=== PATIENT | female | born 1940 | race Caucasian/White ===

== ENCOUNTER 2017-02-06 13:28 | Emergency (ER) | payer OTHER, MEDICARE ==
--- NOTE | 2017-02-06 13:40 | PDOC ---
History of Present Illness - General Chief Complaint: Injury Stated Complaint: LEFT WRIST INJURY Time Seen by Provider: 02/06/17 13:36 - History of Present Illness Initial Comments: 02/06/17 14:41 Chief complaint: Wrist injury History of present illness: Patient tripped and fell last night, injuring her left wrist. There is persistent pain and swelling. There were no other significant injuries. Review of systems: Denies pain or injury to the head neck chest abdomen spine and pelvis or other extremities. Denies chest pain, shortness of breath, abdominal pain, nausea, vomiting, diarrhea, visual or focal neurologic symptoms , unsteadiness of gait Past medical history: High blood pressure, elevated cholesterol, anxiety, depression. Medications: Atenolol, nifedipine, hydrochlorothiazide, pravastatin, potassium, Paxil, Xanax, and baby aspirin. Social history: Tobacco and alcohol use, denies substance abuse problem, no nonprescription drugs. Active and without significant disability Family history: Reviewed and noncontributory Physical exam: Alert and oriented well-developed well-nourished mild distress due to wrist pain. Cooperative Afebrile, vital signs stable Head atraumatic. PERRLA, ENT clear Neck supple without bruit mass or nodes No cervical spine tenderness or deformity Chest clear. No rib cage or chest wall tenderness or deformity CV S1 and S2 normal without murmur rub or gallop pulses full and symmetric no JVD or edema Abdomen benign Neurological C2 to 12 intact. Strength full and symmetric. No focal sensory or motor deficits. Gait stable and unimpaired Extremities: Diffuse swelling of the left wrist, tenderness over the distal radius. No appreciable deformity. Pulses full. No distal sensory or motor deficits. No injury noted to the forearm elbow and upper arm or shoulder. X-ray: There is an avulsion fracture evident only on the lateral view, the origins of the avulsion are not clear about most likely the dorsal and volar aspects of the distal radius. The joint space appears preserved but there may be joint involvement, there is no dislocation, and the navicular shows no obvious fracture Impression: Fractured wrist, no displacement, possible joint involvement. Plan: A volar splint was applied, after which the patient was more comfortable. The arm was placed in a sling. Distal pulses were maintain, capillary refill is intact, and there was no distal numbness or tingling after splint application. The patient and her daughter were instructed to see an orthopedic radiologic technologist for further treatment within the next 3-5 days. They agreed. The patient was discharged after receiving pain medication, much more comfortable, with the medication and the splint adding to her comfort. She will follow up as directed. Past History - Past Medical History Allergies/Adverse Reactions: Allergies Allergy/AdvReac Type Severity Reaction Status Date / Time No Known Allergies Allergy Verified 02/06/17 13:30 Home Medications: Ambulatory Orders Alprazolam [Xanax] 0.25 mg PO QID PRN 02/20/13 Aspirin [ASA -] 81 mg PO DAILY 02/20/13 Atenolol [Tenormin -] 50 mg PO BID 02/20/13 Nifedipine [Nifedipine ER] 30 mg PO DAILY 02/20/13 Omeprazole [Prilosec (RX)] 20 mg PO BID 02/20/13 Pravastatin Sodium [Pravachol -] 40 mg PO HS 02/20/13 Hydrochlorothiazide [Hctz -] 12.5 mg PO DAILY 09/21/13 Cholecalciferol (Vitamin D3) [Vitamin D3] 5,000 unit PO DAILY 02/06/17 Oxycodone HCl/Acetaminophen [Percocet 5-325 mg Tablet] 1 - 2 tab PO Q6H PRN #20 tab MDD 6 02/06/17 Paroxetine HCl [Paxil] 40 mg PO DAILY 02/06/17 Potassium Chloride [Klor-Con 8] 8 meq PO DAILY 02/06/17 Anemia: No Asthma: No Cancer: No Cardiac Disorders: No CVA: No COPD: No CHF: No Dementia: No Diabetes: No GI Disorders: Yes (UPPER ENDO.REVEALED GLOTTIS NOT "CLOSING"-GOES TO SPEECH THERAPY) Disorders: No HTN: Yes Hypercholesterolemia: Yes Liver Disease: No Seizures: No Thyroid Disease: No - Surgical History Abdominal Surgery: Yes (DUODENAL ULCER RESECTION MANY YEARS AGO) Appendectomy: No Cardiac Surgery: No Cholecystectomy: No Lung Surgery: Yes (RML LOBECTOMY FOR BLEEDING) Neurologic Surgery: No Orthopedic Surgery: Yes (RIGHT KNEE ARTHROSCOPY 2011) - Psycho/Social/Smoking Cessation Hx Smoking History: Former smoker Have you smoked in the past 12 months: No If you are a former smoker, when did you quit?: 20 YRS AGO Hx Alcohol Use: No Drug/Substance Use Hx: No Substance Use Type: None Hx Substance Use Treatment: No Medical Decision Making - Medical Decision Making 02/06/17 14:49 X-ray was reviewed: Avulsion fracture, most probably of the distal radius, is present. See description and prior note Volar splint was applied. See description of procedure in prior note. *DC/Admit/Observation/Transfer Diagnosis at time of Disposition: Wrist fracture Qualifiers: Encounter type: initial encounter Fracture type: closed Laterality: left Qualified Code(s): S62.102A - Fracture of unspecified carpal bone, left wrist, initial encounter for closed fracture - Discharge Dispostion Disposition: HOME Condition at time of disposition: Improved Admit: No - Prescriptions Prescriptions: Oxycodone HCl/Acetaminophen [Percocet 5-325 mg Tablet] 1 - 2 tab PO Q6H PRN #20 tab MDD 6 PRN Reason: Pain - Referrals Referrals: Jayme Ramirez MD [Staff Physician] - 3 days - Patient Instructions Printed Discharge Instructions: DI for Wrist Fracture Additional Instructions: Rest, ice, and elevate. He will need to see an orthopedic radiologic technologist for further treatment within the next week.
[2017-02-06 13:59] VITALS: BP 153/77; PULSE 62; TEMP 98.6; BMI 22.3
[2017-02-06] MEDS ORDERED: KETOROLAC TROMETHAMINE 60 MG/2 ML VIAL IM ONE (14:36)
[2017-02-06] MEDS ORDERED: KETOROLAC TROMETHAMINE 30 MG/1 ML VIAL ONE (14:38)
== END 2017-02-06 14:59 | disposition home or self-care (01) ==
LOC: FER 13:28
PROC: 2W3FX1Z Immobilization of Left Hand using Splint (ICD-10-PCS; principal; 2017-02-06)
DX: S62.102A Fracture of unspecified carpal bone, left wrist, initial encounter for closed fracture (principal); W18.39XA Other fall on same level, initial encounter; Y93.89 Activity, other specified; Y92.9 Unspecified place or not applicable
CPT/HCPCS: 73110-TC-LT; 99282-25

== ENCOUNTER 2017-07-27 16:44 | Inpatient (IN) | payer OTHER, MEDICARE ==
--- NOTE | 2017-07-27 17:29 | PDOC ---
History of Present Illness - History of Present Illness Initial Comments: 07/27/17 17:56 "The patient is a 76-year-old female, with a significant past medical history of HTN, hyperlipidemia, anxiety, and depression, who presents to the ED with 5 days of coughing up blood. She states that she has had a chronic cough for several months. However, 5 days ago she began to notice blood in her sputum. This progressively worsened to the point where she feels like she is coughing up blood clots. The patient denies any fever, chills, nausea, or vomiting. She denies any chest pain or shortness of breath. Denies leg swelling. Takes a baby aspirin daily but no other anticoagulation. Pt states that she had a similar presentation about 10 years ago and had to have part of her lung removed. She denies any history of lung cancer but is unable to recall exactly what her diagnosis was. <Luciano Power - Last Filed: 07/27/17 19:08> <Nino Ramirez - Last Filed: 07/27/17 20:55> - General Chief Complaint: Hemoptysis Stated Complaint: COUGH WITH BLOOD STREAKS Time Seen by Provider: 07/27/17 16:49 Past History - Past Medical History Anemia: No Asthma: No Cancer: No Cardiac Disorders: No CVA: No COPD: No CHF: No Dementia: No Diabetes: No GI Disorders: Yes (UPPER ENDO.REVEALED GLOTTIS NOT "CLOSING"-GOES TO SPEECH THERAPY) Disorders: No HTN: Yes Hypercholesterolemia: Yes Liver Disease: No Seizures: No Thyroid Disease: No - Surgical History Abdominal Surgery: Yes (DUODENAL ULCER RESECTION MANY YEARS AGO) Appendectomy: No Cardiac Surgery: No Cholecystectomy: No Lung Surgery: Yes (RML LOBECTOMY FOR BLEEDING) Neurologic Surgery: No Orthopedic Surgery: Yes (RIGHT KNEE ARTHROSCOPY 2012) - Suicide/Smoking/Psychosocial Hx Smoking History: Former smoker Have you smoked in the past 12 months: No If you are a former smoker, when did you quit?: 20 YRS AGO Information on smoking cessation initiated: No Hx Alcohol Use: No Drug/Substance Use Hx: No Substance Use Type: None Hx Substance Use Treatment: No <Luciano Power - Last Filed: 07/27/17 19:08> <Nino Ramirez - Last Filed: 07/27/17 20:55> - Past Medical History Allergies/Adverse Reactions: Allergies Allergy/AdvReac Type Severity Reaction Status Date / Time No Known Allergies Allergy Verified 07/27/17 16:46 Home Medications: Ambulatory Orders Alprazolam [Xanax] 0.25 mg PO QID PRN 02/20/13 Aspirin [ASA -] 81 mg PO DAILY 02/20/13 Nifedipine [Nifedipine ER] 30 mg PO HS 02/20/13 Omeprazole [Prilosec (RX)] 20 mg PO BID 02/20/13 Pravastatin Sodium [Pravachol -] 40 mg PO HS 02/20/13 Hydrochlorothiazide [Hctz -] 12.5 mg PO DAILY 09/21/13 Cholecalciferol (Vitamin D3) [Vitamin D3] 5,000 unit PO DAILY 02/06/17 Paroxetine HCl [Paxil] 40 mg PO DAILY 02/06/17 Potassium Chloride [Klor-Con 8] 8 meq PO DAILY 02/06/17 Atenolol [Tenormin] 100 mg PO DAILY 07/27/17 Review of Systems - Review of Systems Comments:: 07/27/17 17:58 "GENERAL/CONSTITUTIONAL: No fever or chills. No weakness. HEAD, EYES, EARS, NOSE AND THROAT: No change in vision. No ear pain or discharge. No sore throat. CARDIOVASCULAR: No chest pain or shortness of breath. RESPIRATORY: (+)Hemoptysis. No wheezing. GASTROINTESTINAL: No nausea, vomiting, diarrhea or constipation. GENITOURINARY: No dysuria, frequency, or change in urination. MUSCULOSKELETAL: No joint or muscle swelling or pain. No neck or back pain. SKIN: No rash NEUROLOGIC: No headache, vertigo, loss of consciousness, or change in strength/ sensation. ENDOCRINE: No increased thirst. No abnormal weight change. HEMATOLOGIC/LYMPHATIC: No anemia, easy bleeding, or history of blood clots. ALLERGIC/IMMUNOLOGIC: No hives or skin allergy. " <Luciano Power - Last Filed: 07/27/17 19:08> *Physical Exam - Vital Signs Last Vital Signs Temp Pulse Resp BP Pulse Ox 98.1 F 80 16 136/75 95 07/27/17 16:45 07/27/17 16:45 07/27/17 16:45 07/27/17 16:45 07/27/17 16:45 - Physical Exam Comments: 07/27/17 17:58 "GENERAL: Awake, alert, and fully oriented, in no acute distress HEAD: No signs of trauma EYES: PERRLA, EOMI, sclera anicteric, conjunctiva clear ENT: Auricles normal inspection, hearing grossly normal, nares patent, oropharynx clear without exudates. Moist mucosa NECK: Nontender, no stepoffs, Normal ROM, supple, no lymphadenopathy, JVD, or masses LUNGS: bibasilar rales, R>L, no wheezing, no rhonchi HEART: Regular rate and rhythm, normal S1 and S2, no murmurs, rubs or gallops ABDOMEN: Soft, nontender, normoactive bowel sounds. No guarding, no rebound. No masses EXTREMITIES: Normal range of motion, no edema. No clubbing or cyanosis. No cords, erythema, or tenderness NEUROLOGICAL: Cranial nerves II through XII intact. 5/5 strength and sensation in all extremities, Normal speech, normal gait SKIN: Warm, Dry, normal turgor, no rashes or lesions noted. " <Luciano Power - Last Filed: 07/27/17 19:08> - Vital Signs Last Vital Signs Temp Pulse Resp BP Pulse Ox 98.1 F 66 20 120/76 92 L 07/27/17 16:45 07/27/17 20:51 07/27/17 20:51 07/27/17 20:51 07/27/17 20:51 <Nino Ramirez - Last Filed: 07/27/17 20:55> ED Treatment Course - LABORATORY CBC & Chemistry Diagram: 07/27/17 17:50 07/27/17 17:50 - RADIOLOGY Radiology Studies Ordered: Category Date Time Status CHEST PA & LAT [RAD] Stat Radiology 07/27/17 17:15 Ordered <Carmela Poweran - Last Filed: 07/27/17 19:08> - LABORATORY CBC & Chemistry Diagram: 07/27/17 17:50 07/27/17 17:50 - ADDITIONAL ORDERS Additional order review: Laboratory Results 07/27/17 07/27/17 07/27/17 17:50 17:50 17:50 PT with INR Cancelled INR Cancelled PTT (Actin FS) Sodium 134 L Potassium 3.4 L Chloride 95 L Carbon Dioxide 28 Anion Gap 11 BUN 13 D Creatinine 0.9 Creat Clearance w eGFR > 60 Random Glucose 124 H Calcium 11.0 H Total Bilirubin 0.7 D AST 23 ALT 14 D Alkaline Phosphatase 95 H D Creatine Kinase 44 Troponin I < 0.03 L B-Natriuretic Peptide Total Protein 7.5 Albumin 4.1 07/27/17 07/27/17 17:50 17:50 PT with INR 11.0 INR 0.98 PTT (Actin FS) 24.4 L Sodium Potassium Chloride Carbon Dioxide Anion Gap BUN Creatinine Creat Clearance w eGFR Random Glucose Calcium Total Bilirubin AST ALT Alkaline Phosphatase Creatine Kinase Troponin I B-Natriuretic Peptide 229.12 Total Protein Albumin 07/27/17 17:50 RBC 4.89 MCV 86.8 MCHC 31.8 L RDW 13.1 MPV 8.9 Neutrophils % 69.3 Lymphocytes % 21.5 Monocytes % 7.7 Eosinophils % 0.5 Basophils % 1.0 - Medications Given in the ED: ED Medications Discontinued Medications Generic Name Dose Route Start Last Admin Trade Name Freq PRN Reason Stop Dose Admin Azithromycin 500 mg/ Dextrose 250 mls @ 250 mls/hr 07/27/17 18:55 07/27/17 20 :00 IVPB 07/27/17 19:54 250 mls/hr ONCE ONE Administration Ceftriaxone Sodium 1 gm/ 50 mls @ 100 mls/hr 07/27/17 18:55 07/27/17 19:20 Dextrose IVPB 07/27/17 19:24 100 mls/hr ONCE ONE Administration <Nino Ramirez - Last Filed: 07/27/17 20:55> Medical Decision Making - Medical Decision Making 07/27/17 17:34 76 F with hemoptysis x 5 days. Possibly 2/2 airway irritation from chronic cough. Also consider PNA vs malignancy. Pt HD stable at this time. Lung exam notable for bilateral rales at bases R>L, possibly suggestive of CHF. Pt reportedly has h/o prior lobectomy 2/2 hemoptysis, though she cannot recall her diagnosis. - Labs, coags, T&S - CXR 07/27/17 19:00 CBC,CMP WBC 7.6 K/mm3 (4.0-10.8) 07/27/17 17:50 RBC 4.89 M/mm3 (3.60-5.2) 07/27/17 17:50 Hgb 13.5 GM/dl (10.7-15.3) 07/27/17 17:50 Hct 42.4 % (32.4-45.2) 07/27/17 17:50 MCV 86.8 fl (80-96) 07/27/17 17:50 MCH 27.6 pg (25.7-33.7) 07/27/17 17:50 MCHC 31.8 g/dl (32.0-36.0) L 07/27/17 17:50 RDW 13.1 % (11.6-15.6) 07/27/17 17:50 Plt Count 312 K/MM3 (134-434) 07/27/17 17:50 MPV 8.9 fl (7.5-11.1) 07/27/17 17:50 Neutrophils % 69.3 % (42.8-82.8) 07/27/17 17:50 Lymphocytes % 21.5 % (8-40) 07/27/17 17:50 Monocytes % 7.7 % (3.8-10.2) 07/27/17 17:50 Eosinophils % 0.5 % (0-4.5) 07/27/17 17:50 Basophils % 1.0 % (0-2.0) 07/27/17 17:50 Sodium 134 mmol/L (136-145) L 07/27/17 17:50 Potassium 3.4 mmol/L (3.5-5.1) L 07/27/17 17:50 Chloride 95 mmol/L (98-107) L 07/27/17 17:50 Carbon Dioxide 28 mmol/L (22-28) 07/27/17 17:50 Anion Gap 11 (8-16) 07/27/17 17:50 BUN 13 mg/dl (7-18) D 07/27/17 17:50 Creatinine 0.9 mg/dl (0.6-1.3) 07/27/17 17:50 Creat Clearance w eGFR > 60 (>60) 07/27/17 17:50 Random Glucose 124 mg/dl (74-106) H 07/27/17 17:50 Calcium 11.0 mg/dl (8.4-10.2) H 07/27/17 17:50 Total Bilirubin 0.7 mg/dl (0.2-1.0) D 07/27/17 17:50 AST 23 U/L (10-42) 07/27/17 17:50 ALT 14 U/L (10-40) D 07/27/17 17:50 Alkaline Phosphatase 95 U/L (32-92) H D 07/27/17 17:50 Creatine Kinase 44 IU/L (26-192) 07/27/17 17:50 Troponin I < 0.03 ng/ml (0.03-0.50) L 07/27/17 17:50 Total Protein 7.5 g/dl (6.4-8.3) 07/27/17 17:50 Albumin 4.1 g/dl (3.5-5.0) 07/27/17 17:50 CXR on my read with bibasilar opacities, ?mass in LLL. Will empirically tx for PNA at this time. Pt to be admitted to hospitalist. <Luciano Power - Last Filed: 07/27/17 19:08> *DC/Admit/Observation/Transfer <Luciano Power - Last Filed: 07/27/17 19:08> - Discharge Dispostion Admit: Yes <Nino Ramirez - Last Filed: 07/27/17 20:55> Diagnosis at time of Disposition: Hemoptysis - Discharge Dispostion Condition at time of disposition: Good - Referrals Referrals: Papito Rousseau MD [Primary Care Provider] - - Patient Instructions - Post Discharge Activity
[2017-07-27 18:15] LABS: EOS % 0.5 % (0-4.5); HEMATOCRIT 42.4 % (32.4-45.2); HEMOGLOBIN 13.5 GM/dl (10.7-15.3); LYMPH % 21.5 % (8-40); MCH 27.6 pg (25.7-33.7); MCHC 31.8 g/dl (32.0-36.0); MEAN CELL VOLUME 86.8 fl (80-96); MEAN PLT VOLUME 8.9 fl (7.5-11.1); MONO % 7.7 % (3.8-10.2); NEUT % 69.3 % (42.8-82.8); PLATELET COUNT 312 K/MM3 (134-434); RBC 4.89 M/mm3 (3.60-5.2); RDW 13.1 % (11.6-15.6); WHITE BLOOD COUNT 7.6 K/mm3 (4.0-10.8)
[2017-07-27 18:21] LABS: ALBUMIN 4.1 g/dl (3.5-5.0); ALK PHOS 95 U/L (32-92); ANION GAP 11 (8-16); BILIRUBIN,TOTAL 0.7 mg/dl (0.2-1.0); BLOOD UREA NITROGEN 13 mg/dl (7-18); CHLORIDE 95 mmol/L (98-107); CO2 28 mmol/L (22-28); CREATININE 0.9 mg/dl (0.6-1.3); GLUCOSE,RANDOM 124 mg/dl (74-106); POTASSIUM 3.4 mmol/L (3.5-5.1); SGOT/AST 23 U/L (10-42); SGPT/ALT 14 U/L (10-40); SODIUM 134 mmol/L (136-145); TOT PROT 7.5 g/dl (6.4-8.3)
[2017-07-27 18:26] LABS: ACTIVATED PTT 24.4 SECONDS (24.0-38.9)
[2017-07-27 18:30] LABS: INR 0.98 (0.82-1.09)
[2017-07-27] MEDS ORDERED: AZITHROMYCIN IVPB 500 MG in DEXTROSE 5%-WATER - 250 ML IVPB ONE (18:55)
[2017-07-27] MEDS ORDERED: CEFTRIAXONE 1 GM in DEXTROSE 5%-WATER - 50 ML IVPB ONE (18:55)
[2017-07-27] MEDS ORDERED: cefTRIAXone SODIUM 1 GM VIAL ONE (19:16)
[2017-07-27] MEDS ORDERED: AZITHROMYCIN 500 MG VIAL IVPB ONE (19:16)
[2017-07-27] MEDS ORDERED: POTASSIUM CHLORIDE TABS 20 MEQ TABLET.ER (FP) PO ONE ×2 (21:09→21:11)
[2017-07-27 22:12] VITALS: BMI 22.7
[2017-07-27] MEDS ORDERED: ALPRAZolam 0.25 MG TABLET PO PRN (23:45)
[2017-07-28 00:56] LABS: BASO % 0.5 % (0-2.0); EOS % 0.4 % (0-4.5); HEMATOCRIT 35.4 % (32.4-45.2); HEMOGLOBIN 11.7 GM/dL (10.7-15.3); LYMPH % 27.7 % (8-40); MCH 28.3 pg (25.7-33.7); MCHC 33.2 g/dl (32.0-36.0); MEAN CELL VOLUME 85.4 fl (80-96); MEAN PLT VOLUME 8.5 fl (7.5-11.1); MONO % 9.7 % (3.8-10.2); NEUT % 61.7 % (42.8-82.8); PLATELET COUNT 258 K/MM3 (134-434); RBC 4.14 M/mm3 (3.60-5.2); RDW 13.4 % (11.6-15.6)
--- NOTE | 2017-07-28 09:10 | HP ---
CHIEF COMPLAINT: Coughing up blood x 5 days PCP: Dr. Papito Rousseau HISTORY OF PRESENT ILLNESS: 76 year-old female with a PMH significant for HTN, HLD, CAD, chronic bronchiectasis s/p right middle lung lobectomy (1998), hypercalcemia, a recently diagnosed right upper pole parathyroid adenoma, anxiety and depression. Patient presented to the ED complaining of julio hemoptysis x 5 days. Patient states the last time she had hemoptysis was many years ago. Spoke with patient's PCP Dr. Rousseau who states patient had chronic hemoptysis years ago secondary to bronchiectasis which led to the lobectomy. She has never had a diagnosis of cancer. Patient was a heavy smoker, quit 30 years ago. Patient denies pain. Denies fever, sweats, chills, night sweats. Denies recent weight loss. According to Dr. Rousseau patient weighed 132lbs two weeks ago. Today she is 128lbs. No recent sick exposures. Last travel was last summer to [place]. She takes a daily ASA, on no other anticoagulation. ER course was notable for: (1) K 3.2 (2) julio hemoptysis Recent Travel: No PAST MEDICAL HISTORY: Hypertension Hyperlipidemia Coronary artery disease Chronic bronchiectasis Primary hyperparathyoidism/parathyroid adenoma Anxiety/Depression PAST SURGICAL HISTORY: Billroth II (1968) GAURAV/BSO (1978) Right middle lung lobectomy (1998) Right foot calcaneal spur (2003) Right knee arthroscopy (2011) Cataracts (2012) Right ankle arthroscopy (2013) Left shoulder arthroscopy (2014) Social History: Smoking: former, quit 30 years ago Alcohol: no Drugs: no Family History: father 46 heart disease; mother 69 diabetes and heart disease; sister alive with breast cancer Allergies No Known Allergies Allergy (Verified 07/27/17 16:46) HOME MEDICATIONS: Medication Instructions Recorded Alprazolam [Xanax] 0.25 mg PO QID PRN 02/20/13 Aspirin [ASA -] 81 mg PO DAILY 02/20/13 Nifedipine [Nifedipine ER] 30 mg PO HS 02/20/13 Omeprazole [Prilosec (RX)] 20 mg PO BID 02/20/13 Pravastatin Sodium [Pravachol -] 40 mg PO HS 02/20/13 Hydrochlorothiazide [Hctz -] 12.5 mg PO DAILY 09/21/13 Cholecalciferol (Vitamin D3) 5,000 unit PO DAILY 02/06/17 [Vitamin D3] Paroxetine HCl [Paxil] 40 mg PO DAILY 02/06/17 Potassium Chloride [Klor-Con 8] 8 meq PO DAILY 02/06/17 Atenolol [Tenormin] 100 mg PO DAILY 07/27/17 REVIEW OF SYSTEMS CONSTITUTIONAL: Absent: fever, chills, diaphoresis, generalized weakness, malaise, loss of appetite, weight change HEENT: Absent: rhinorrhea, nasal congestion, throat pain, throat swelling, difficulty swallowing, mouth swelling, ear pain, eye pain, visual changes CARDIOVASCULAR: Absent: chest pain, syncope, palpitations, irregular heart rate, lightheadedness , peripheral edema RESPIRATORY: +cough +hemoptysis Absent: cough, shortness of breath, dyspnea with exertion, orthopnea, wheezing, stridor GASTROINTESTINAL: Absent: abdominal pain, abdominal distension, nausea, vomiting, diarrhea, constipation, melena, hematochezia GENITOURINARY: Absent: dysuria, frequency, urgency, hesitancy, hematuria, flank pain, genital pain MUSCULOSKELETAL: Absent: myalgia, arthralgia, joint swelling, back pain, neck pain SKIN: Absent: rash, itching, pallor HEMATOLOGIC/IMMUNOLOGIC: Absent: easy bleeding, easy bruising, lymphadenopathy, frequent infections ENDOCRINE: Absent: unexplained weight gain, unexplained weight loss, heat intolerance, cold intolerance NEUROLOGIC: Absent: headache, focal weakness or paresthesias, dizziness, unsteady gait, seizure, mental status changes, bladder or bowel incontinence PSYCHIATRIC: Absent: anxiety, depression, suicidal or homicidal ideation, hallucinations. PHYSICAL EXAMINATION Vital Signs - 24 hr 07/27/17 07/27/17 07/27/17 16:45 20:51 21:18 Temperature 98.1 F 97.5 F L 98.2 F Pulse Rate 80 82 Pulse Rate [ 66 Left Radial] Respiratory 16 20 20 Rate Blood Pressure 136/75 134/61 Blood Pressure 120/76 [Left Arm] O2 Sat by Pulse 95 92 L 94 L Oximetry (%) 07/27/17 07/27/17 07/28/17 22:15 23:47 03:47 Temperature 97.6 F 97.4 F L Pulse Rate 66 60 Pulse Rate [ Left Radial] Respiratory 18 18 19 Rate Blood Pressure 134/61 137/65 Blood Pressure [Left Arm] O2 Sat by Pulse 94 L 94 L Oximetry (%) 07/28/17 07:37 Temperature Pulse Rate Pulse Rate [ Left Radial] Respiratory Rate Blood Pressure Blood Pressure [Left Arm] O2 Sat by Pulse 95 Oximetry (%) GENERAL: Awake, alert, and fully oriented, in no acute distress. HEAD: Normal with no signs of trauma. EYES: Pupils equal, round and reactive to light, extraocular movements intact, sclera anicteric, conjunctiva clear. No lid lag. EARS, NOSE, THROAT: Ears normal, nares patent, oropharynx clear without exudates. Moist mucous membranes. NECK: Normal range of motion, supple without lymphadenopathy, JVD, or masses. LUNGS: Breath sounds equal, clear to auscultation bilaterally. No wheezes, and no crackles. No accessory muscle use. HEART: Regular rate and rhythm, normal S1 and S2 without murmur, rub or gallop. ABDOMEN: Soft, nontender, not distended, normoactive bowel sounds, no guarding, no rebound, no masses. No hepatomegaly or splenomegaly. MUSCULOSKELETAL: Normal range of motion at all joints. No bony deformities or tenderness. No CVA tenderness. UPPER EXTREMITIES: 2+ pulses, warm, well-perfused. No cyanosis. No clubbing. No peripheral edema. LOWER EXTREMITIES: 2+ pulses, warm, well-perfused. No calf tenderness. No peripheral edema. NEUROLOGICAL: Cranial nerves II-XII intact. Normal speech. Normal gait. PSYCHIATRIC: Cooperative. Good eye contact. Appropriate mood and affect. SKIN: Warm, dry, normal turgor, no rashes or lesions noted, normal capillary refill. Laboratory Results - last 24 hr 07/27/17 07/27/17 07/27/17 17:50 17:50 17:50 WBC RBC Hgb Hct MCV MCH MCHC RDW Plt Count MPV Neutrophils % Lymphocytes % Monocytes % Eosinophils % Basophils % PT with INR 11.0 INR 0.98 PTT (Actin FS) 24.4 L Sodium Potassium Chloride Carbon Dioxide Anion Gap BUN Creatinine Creat Clearance w eGFR Random Glucose Calcium Total Bilirubin AST ALT Alkaline Phosphatase Creatine Kinase Troponin I B-Natriuretic Peptide 229.12 Total Protein Albumin Blood Type O NEGATIVE Antibody Screen Negative 07/27/17 07/27/17 07/27/17 17:50 17:50 17:50 WBC 7.6 RBC 4.89 Hgb 13.5 Hct 42.4 MCV 86.8 MCH 27.6 MCHC 31.8 L RDW 13.1 Plt Count 312 MPV 8.9 Neutrophils % 69.3 Lymphocytes % 21.5 Monocytes % 7.7 Eosinophils % 0.5 Basophils % 1.0 PT with INR Cancelled INR Cancelled PTT (Actin FS) Sodium 134 L Potassium 3.4 L Chloride 95 L Carbon Dioxide 28 Anion Gap 11 BUN 13 D Creatinine 0.9 Creat Clearance w eGFR > 60 Random Glucose 124 H Calcium 11.0 H Total Bilirubin 0.7 D AST 23 ALT 14 D Alkaline Phosphatase 95 H D Creatine Kinase 44 Troponin I B-Natriuretic Peptide Total Protein 7.5 Albumin 4.1 Blood Type Antibody Screen 07/27/17 07/27/17 17:50 23:50 WBC 9.0 RBC 4.14 Hgb 11.7 Hct 35.4 MCV 85.4 MCH 28.3 MCHC 33.2 RDW 13.4 Plt Count 258 MPV 8.5 Neutrophils % 61.7 Lymphocytes % 27.7 Monocytes % 9.7 Eosinophils % 0.4 Basophils % 0.5 PT with INR INR PTT (Actin FS) Sodium Potassium Chloride Carbon Dioxide Anion Gap BUN Creatinine Creat Clearance w eGFR Random Glucose Calcium Total Bilirubin AST ALT Alkaline Phosphatase Creatine Kinase Troponin I < 0.03 L B-Natriuretic Peptide Total Protein Albumin Blood Type Antibody Screen Imagning 07/27/17 CXR: new left lower lung tumor density; post-surgical changes right apex 07/27/17 CT chest: chronic lung changes with evidence of prior granulomatosis disease unchanged since 2012; new groundglass opacification RUL ASSESSMENT/PLAN 76 year-old female with a PMH significant for HTN, HLD, CAD, chronic bronchiectasis s/p right middle lung lobectomy (1998), hypercalcemia, a recently diagnosed right upper pole parathyroid ademona, anxiety and depression. Patient placed on observation for julio hemoptysis x 5 days. RUL opacification Bronchiectasis, chronic, extensive --no fever, no leukocytosis --per pulm, continue empiric azithro and ceftriaxone --duonebs --hold ASA --will need bronchoscopy, inpatient v. outpatient Hypertension --continue atenolol, nifedipine, HCTZ Hyperlipidemia --continue Lipitor Coronary artery disease --continue atenolol Hypercalcemia Parathyroid adenoma --being followed by Dr. Hall at [place]; has appt with surgeon in mid- August Anxiety/Depression --continue Paxil Hypokalemia --repleted FEN Fluids: PO intake adequate Electrolytes: replete as indicated Nutrition: low sodium DVT prophylaxis: mechanical prophylaxis only; SCDs, oob, ambulation Dispo: continues to require observation. Visit type - Emergency Visit Emergency Visit: Yes ED Registration Date: 07/27/17 Care time: The patient presented to the Emergency Department on the above date and was hospitalized for further evaluation of their emergent condition. - New Patient This patient is new to me today: Yes Date on this admission: 07/28/17 - Critical Care Critical Care patient: No
[2017-07-28 09:21] LABS: BASO % 0.7 % (0-2.0); HEMATOCRIT 34.8 % (32.4-45.2); HEMOGLOBIN 11.5 GM/dl (10.7-15.3); LYMPH % 29.9 % (8-40); MCH 28.6 pg (25.7-33.7); MCHC 32.9 g/dl (32.0-36.0); MONO % 9.8 % (3.8-10.2); NEUT % 58.6 % (42.8-82.8); PLATELET COUNT 236 K/MM3 (134-434); RDW 13.1 % (11.6-15.6); WHITE BLOOD COUNT 7.9 K/mm3 (4.0-10.8)
[2017-07-28] MEDS: PARoxetine HCL 20 MG TABLET (FP) PO SCH (10:01)
[2017-07-28] MEDS: NIFEdipine E.R. 30 MG TABLET (FP) PO SCH (10:02)
[2017-07-28] MEDS: HYDROCHLOROTHIAZIDE 12.5 MG CAPSULE (FP) PO SCH (10:02)
[2017-07-28] MEDS: ATENOLOL 50 MG TABLET (FP) PO SCH (10:02)
[2017-07-28 10:15] LABS: ALBUMIN 3.4 g/dl (3.5-5.0); ALK PHOS 79 U/L (32-92); ANION GAP 10 (8-16); BILIRUBIN,TOTAL 0.6 mg/dl (0.2-1.0); BLOOD UREA NITROGEN 10 mg/dl (7-18); CALCIUM 10.6 mg/dl (8.4-10.2); CHLORIDE 97 mmol/L (98-107); CO2 27 mmol/L (22-28); CREATININE 0.7 mg/dl (0.6-1.3); GLUCOSE,RANDOM 86 mg/dl (74-106); POTASSIUM 3.2 mmol/L (3.5-5.1); SGOT/AST 18 U/L (10-42); SGPT/ALT 12 U/L (10-40); SODIUM 134 mmol/L (136-145); TOT PROT 6.3 g/dl (6.4-8.3)
[2017-07-28] MEDS ORDERED: ALPRAZolam 0.25 MG TABLET PO PRN (11:20)
[2017-07-28] MEDS ORDERED: PATIENT'S OWN MEDICATION (NON-FORMULARY) (Omeprazole [Prilosec (Rx)] 20 MG) PO SCH (11:30)
[2017-07-28] MEDS ORDERED: HYDROCHLOROTHIAZIDE 12.5 MG CAPSULE (FP) PO SCH (11:30)
[2017-07-28] MEDS ORDERED: PATIENT'S OWN MEDICATION (NON-FORMULARY) (Atenolol [Tenormin] 100 MG) PO SCH (11:30)
[2017-07-28] MEDS ORDERED: PAROXETINE HCL 40 MG PO SCH (11:30)
[2017-07-28] MEDS: POTASSIUM CHLORIDE TABS 20 MEQ TABLET.ER (FP) PO SCH ×2 (12:32→17:42)
[2017-07-28] MEDS: PANTOPRAZOLE 40 MG TABLET (FP) PO SCH (12:32)
--- NOTE | 2017-07-28 15:28 | CON.PULM ---
Consult Consult Specialty:: PULMONARY Referred by:: SARAH Reason for Consultation:: HEMOPTYSIS - History of Present Illness Chief Complaint: COUGHING BLOOD WHICH WAS PRECEDED BY COUGHING GREEN SPUTUM AND NOT FEELING WELL FOR ONE WEEK History of Present Illness: "The patient is a 76-year-old female, with a significant past medical history of HTN, hyperlipidemia, anxiety, and depression, lung cancer resected 1999 no adjuvant therapy at that time, who presents to the ED with 5 days of coughing up blood. She states that she has had a chronic cough for several months. However, 5 days ago she began to notice blood in her sputum. This progressively worsened to the point where she feels like she is coughing up blood clots. The patient denies any fever, chills, nausea, or vomiting. She denies any chest pain or shortness of breath. Denies leg swelling. Takes a baby aspirin daily but no other anticoagulation.Pt states that she had a similar presentation about 10 years ago and had to have part of her lung removed. She denies any history of lung cancer but is unable to recall exactly what her diagnosis was. - History Source History Provided By: Patient, Family Member, Medical Record Limitations to Obtaining History: No Limitations - Past Medical History [employer]ER: No: Alzheimer's Cardio/Vascular: Yes: HTN, Hyperlipdemia. No: AFIB Pulmonary: Yes: COPD, Pneumonia, Other (lung cancer s/p resection). No: O2 Dependent Gastrointestinal: Yes: Peptic Ulcer Disease. No: Ascites Hepatobiliary: No: Cirrhosis Renal/: No: Renal Failure Reproductive: Yes: Postmenopausal ...: No Heme/Onc: Yes: Anemia Infectious Disease: No: AIDS Psych: No: Addictions Musculoskeletal: Yes: Osteoarthritis. No: Bursitis Rheumatology: No: Fibromyalgia Endocrine: No: Diabetes Mellitus - Past Surgical History Past Surgical History: Yes: Hysterectomy (duodenal ulcer with partial gastrectomy/right lobectomy/) - Alcohol/Substance Use Hx Alcohol Use: No - Smoking History Smoking history: Former smoker Have you smoked in the past 12 months: No Aproximately how many cigarettes per day: 4 If you are a former smoker, when did you quit?: 20 YRS AGO - Social History Usual Living Arrangement: Alone Place of : [facility] History of Recent Travel: No Home Medications - Allergies Allergies/Adverse Reactions: Allergies Allergy/AdvReac Type Severity Reaction Status Date / Time No Known Allergies Allergy Verified 07/27/17 16:46 - Home Medications Home Medications: Ambulatory Orders Alprazolam [Xanax] 0.25 mg PO QID PRN 02/20/13 Aspirin [ASA -] 81 mg PO DAILY 02/20/13 Nifedipine [Nifedipine ER] 30 mg PO HS 02/20/13 Omeprazole [Prilosec (RX)] 20 mg PO BID 02/20/13 Pravastatin Sodium [Pravachol -] 40 mg PO HS 02/20/13 Hydrochlorothiazide [Hctz -] 12.5 mg PO DAILY 09/21/13 Cholecalciferol (Vitamin D3) [Vitamin D3] 5,000 unit PO DAILY 02/06/17 Paroxetine HCl [Paxil] 40 mg PO DAILY 02/06/17 Potassium Chloride [Klor-Con 8] 8 meq PO DAILY 02/06/17 Atenolol [Tenormin] 100 mg PO DAILY 07/27/17 Family Disease History - Family Disease History Family History: Unremarkable Review of Systems - Review of Systems Constitutional: reports: Lethargy. denies: Fever Eyes: denies: Blurred Vision HENT: denies: Difficult Swallowing Neck: denies: Decreased ROM Cardiovascular: reports: Shortness of Breath. denies: Chest Pain, Palpitations Respiratory: reports: Cough, Exercise Intolerance, Hemoptysis, SOB, SOB on Exertion Gastrointestinal: denies: Abdominal Pain Genitourinary: denies: Burning Breasts: reports: No Symptoms Reported Physical Exam Vital Sings: Vital Signs Temperature 98.7 F 07/28/17 14:20 Pulse Rate 65 07/28/17 14:20 Respiratory Rate 19 07/28/17 14:20 Blood Pressure 126/60 07/28/17 14:20 O2 Sat by Pulse Oximetry (%) 93 L 07/28/17 14:20 Constitutional: Yes: Calm Eyes: Yes: EOM Intact HENT: Yes: Normocephalic Neck: Yes: Trachea Midline Cardiovascular: Yes: Regular Rate and Rhythm Respiratory: Yes: Rales (right middle/lower zone ) Gastrointestinal: Yes: Normal Bowel Sounds Edema: No Neurological: Yes: Alert Labs: CBC, BMP 07/28/17 08:27 07/28/17 07:56 rest reviewed Imaging - Results Chest X-ray: Report Reviewed, Image Reviewed Cat Scan: Report Reviewed, Image Reviewed Problem List - Problems (1) COPD (chronic obstructive pulmonary disease) Code(s): J44.9 - CHRONIC OBSTRUCTIVE PULMONARY DISEASE, UNSPECIFIED (2) Hemoptysis Code(s): R04.2 - HEMOPTYSIS (3) Bronchiectasis Code(s): J47.9 - BRONCHIECTASIS, UNCOMPLICATED (4) Lung cancer, middle lobe Code(s): C34.2 - MALIGNANT NEOPLASM OF MIDDLE LOBE, BRONCHUS OR LUNG Assessment/Plan Right mid zone new infiltrate/extensive bronchiectasis H/O lung ca 1998 right sided(details are unclear) IV ABS/BRONCHODILATORS/QUANTITATE HEMOPTYSIS CONTINUE HOME MEDS/HOLD ASA FOR NOW WOULD SUGGEST EVENTUAL FIBEROPTIC BRONCHOSCOPY TO EVALUATE ENDOBRONCHIAL ANATOMY DISCUSSED WITH GIBSON BASS MD
[2017-07-28] MEDS: CEFTRIAXONE 1 G/50 ML PREMIX 50 ML IVPB SCH (16:20)
[2017-07-28] MEDS: ALBUTEROL SO4 2.5/IPRATROPIUM 0.5 INH SOL 3 ML VIAL.NEB. NEB SCH (17:42)
[2017-07-28] MEDS: AZITHROMYCIN IVPB 250 MG in DEXTROSE 5%-WATER - 250 ML IVPB SCH (17:42)
[2017-07-28 18:47] LABS: URINE APPEARANCE Clear; URINE BILIRUBIN Negative (NEGATIVE); URINE GLUCOSE (UA) Negative (NEGATIVE); URINE KETONE Negative (NEGATIVE); URINE NITRITE Negative (NEGATIVE); URINE PROTEIN Negative (NEGATIVE)
[2017-07-28 19:01] LABS: URINE BLOOD Trace-intact (NEGATIVE); URINE COLOR YELLOW; URINE LEUK ESTERASE 2+ (NEGATIVE)
[2017-07-28] MEDS: ATORVASTATIN CA 10 MG TABLET (FP) PO SCH (21:34)
[2017-07-28] MEDS ORDERED: PATIENT'S OWN MEDICATION (NON-FORMULARY) (Pravastatin Sodium 40 MG) PO SCH (22:00)
[2017-07-28] MEDS ORDERED: NIFEdipine E.R. 30 MG TABLET (FP) PO SCH (22:00)
[2017-07-29] MEDS: ALBUTEROL SO4 2.5/IPRATROPIUM 0.5 INH SOL 3 ML VIAL.NEB. NEB SCH ×4 (08:37→20:07)
[2017-07-29 09:03] LABS: BASO % 0.6 % (0-2.0); EOS % 1.2 % (0-4.5); HEMATOCRIT 33.8 % (32.4-45.2); HEMOGLOBIN 11.1 GM/dl (10.7-15.3); LYMPH % 33.1 % (8-40); MCH 28.4 pg (25.7-33.7); MCHC 32.8 g/dl (32.0-36.0); MEAN CELL VOLUME 86.4 fl (80-96); MEAN PLT VOLUME 8.9 fl (7.5-11.1); MONO % 10.7 % (3.8-10.2); NEUT % 54.4 % (42.8-82.8); PLATELET COUNT 236 K/MM3 (134-434); RBC 3.91 M/mm3 (3.60-5.2); RDW 12.7 % (11.6-15.6); WHITE BLOOD COUNT 6.4 K/mm3 (4.0-10.8)
--- NOTE | 2017-07-29 09:03 | PN ---
Physical Exam: SUBJECTIVE: Patient seen and examined, reports ongoing moist cough,, 2 episodes of hemopytosis early this AM, denies any chest pain or shortness of breath. OBJECTIVE: patient is a 76 year-old female with a PMH significant for HTN, HLD, CAD, chronic bronchiectasis s/p right middle lung lobectomy (1998), hypercalcemia, a recently diagnosed right upper pole parathyroid adenoma, anxiety and depression, patient was admitted from the emergency department for hemoptyosis and PNA. Vital Signs Period Temp Pulse Resp BP Sys/García Pulse Ox Last 24 Hr 98 F-98.7 F 64-72 18-19 119-126/49-62 93-95 GENERAL: The patient is awake, alert, and fully oriented, in no acute distress. HEAD: Normal with no signs of trauma. EYES: PERRL, extraocular movements intact, sclera anicteric, conjunctiva clear. No ptosis. ENT: Ears normal, nares patent, oropharynx clear without exudates, moist mucous membranes. NECK: Trachea midline, full range of motion, supple. LUNGS: Breath sounds equal, diminished to bilateral base, course rhonchi throughout, no wheezes, no crackles, no accessory muscle use. HEART: Regular rate and rhythm, S1, S2 without murmur, rub or gallop. ABDOMEN: Soft, nontender, nondistended, normoactive bowel sounds, no guarding, no rebound, no hepatosplenomegaly, no masses. EXTREMITIES: 2+ pulses, warm, well-perfused, no edema. NEUROLOGICAL: Cranial nerves II through XII grossly intact. Normal speech, gait not observed. PSYCH: Normal mood, normal affect. SKIN: Warm, dry, normal turgor, no rashes or lesions noted Laboratory Results - last 24 hr CBC WBC 6.4 K/mm3 (4.0-10.8) 07/29/17 07:00 RBC 3.91 M/mm3 (3.60-5.2) 07/29/17 07:00 Hgb 11.1 GM/dl (10.7-15.3) 07/29/17 07:00 Hct 33.8 % (32.4-45.2) 07/29/17 07:00 MCV 86.4 fl (80-96) 07/29/17 07:00 MCH 28.4 pg (25.7-33.7) 07/29/17 07:00 MCHC 32.8 g/dl (32.0-36.0) 07/29/17 07:00 RDW 12.7 % (11.6-15.6) 07/29/17 07:00 Plt Count 236 K/MM3 (134-434) 07/29/17 07:00 MPV 8.9 fl (7.5-11.1) 07/29/17 07:00 Neutrophils % 54.4 % (42.8-82.8) 07/29/17 07:00 Lymphocytes % 33.1 % (8-40) 07/29/17 07:00 Monocytes % 10.7 % (3.8-10.2) H 07/29/17 07:00 Eosinophils % 1.2 % (0-4.5) 07/29/17 07:00 Basophils % 0.6 % (0-2.0) 07/29/17 07:00 ESR 46 mm/hr (0-30) H 07/28/17 16:00 CMP Sodium 138 mmol/L (136-145) 07/29/17 07:00 Potassium 4.1 mmol/L (3.5-5.1) D 07/29/17 07:00 Chloride 101 mmol/L (98-107) 07/29/17 07:00 Carbon Dioxide 29 mmol/L (22-28) H 07/29/17 07:00 Anion Gap 8 (8-16) 07/29/17 07:00 BUN 14 mg/dl (7-18) D 07/29/17 07:00 Creatinine 0.7 mg/dl (0.6-1.3) 07/29/17 07:00 Creat Clearance w eGFR > 60 (>60) 07/29/17 07:00 Random Glucose 106 mg/dl (74-106) D 07/29/17 07:00 Calcium 10.8 mg/dl (8.4-10.2) H 07/29/17 07:00 Magnesium 1.7 mg/dL (1.8-2.4) L 07/29/17 07:00 Total Bilirubin 0.6 mg/dl (0.2-1.0) 07/29/17 07:00 AST 18 U/L (10-42) 07/29/17 07:00 ALT 12 U/L (10-40) 07/29/17 07:00 Alkaline Phosphatase 72 U/L (32-92) 07/29/17 07:00 Creatine Kinase 44 IU/L (26-192) 07/27/17 17:50 Troponin I < 0.03 ng/ml (0.03-0.50) L 07/27/17 17:50 C-Reactive Protein 0.4 MG/DL (0.00-0.3) H 07/28/17 08:27 B-Natriuretic Peptide 229.12 pg/ml (5-450) 07/27/17 17:50 Total Protein 6.3 g/dl (6.4-8.3) L 07/29/17 07:00 Albumin 3.3 g/dl (3.5-5.0) L 07/29/17 07:00 Active Medications Generic Name Dose Route Start Last Admin Trade Name Freq PRN Reason Stop Dose Admin Albuterol/Ipratropium 1 amp 07/28/17 16:00 07/29/17 08:37 Duoneb - NEB 1 amp RQID DARIAN Administration Atenolol 100 mg 07/28/17 10:00 07/28/17 10:02 Tenormin - PO 100 mg DAILY DARIAN Administration Atorvastatin Calcium 10 mg 07/28/17 22:00 07/28/17 21:34 Lipitor - PO 10 mg HS DARIAN Administration Hydrochlorothiazide 12.5 mg 07/28/17 10:00 07/28/17 10:02 Hctz - PO 12.5 mg DAILY DARIAN Administration CEFTRIAXONE 1 G/50 ML PREMIX 50 mls @ 100 mls/hr 07/28/17 15:30 07/28/17 16: 20 Ceftriaxone 1 Gm-D5w Bag IVPB 100 mls/hr DAILY DARIAN Administration Azithromycin 250 mg/ Dextrose 250 mls @ 250 mls/hr 07/28/17 15:30 07/28/17 17 :42 IVPB 07/31/17 10:59 250 mls/hr DAILY DARIAN Administration Nifedipine 30 mg 07/28/17 10:00 07/28/17 10:02 Procardia Xl - PO 30 mg DAILY DARIAN Administration Pantoprazole Sodium 40 mg 07/28/17 11:30 07/28/17 12:32 Protonix - PO 40 mg DAILY DARIAN Administration Paroxetine HCl 40 mg 07/28/17 10:00 07/28/17 10:01 Paxil - PO 40 mg DAILY DARIAN Administration Imaging 07/27/17 CXR: new left lower lung tumor density; post-surgical changes right apex 07/27/17 CT chest: chronic lung changes with evidence of prior granulomatosis disease unchanged since 2012; new groundglass opacification RUL ASSESSMENT/PLAN: 1) PULM RUL opacification Bronchiectasis, chronic, extensive - afebrile, no leukocytosis, follow up blood and urine cultures - continue empiric azithro and ceftriaxone - will require close follow up for outpatient bronchoscopy - continue duonebs standing and hold ASA - pulmonary consulted and following. 2) cardiovascular Hypertension --continue atenolol, nifedipine, HCTZ Hyperlipidemia --continue Lipitor Coronary artery disease --continue atenolol 3) endo Hypercalcemia Parathyroid adenoma - being followed by Dr. Hall at [place]; has appt with surgeon in mid- August 4) psych Anxiety/Depression - continue Paxil FEN Fluids: PO intake adequate Electrolytes:hypokalemia resolved, replete as indicated Nutrition: low sodium DVT prophylaxis: mechanical prophylaxis only; SCDs, oob, ambulation Dispo: continues to require observation. Visit type - Emergency Visit Emergency Visit: Yes ED Registration Date: 07/29/17 Care time: The patient presented to the Emergency Department on the above date and was hospitalized for further evaluation of their emergent condition. - New Patient This patient is new to me today: Yes Date on this admission: 07/30/17 - Critical Care Critical Care patient: No - Discharge Referral Referred to [facility] Med [facility].C.: No
[2017-07-29 09:05] LABS: ALBUMIN 3.3 g/dl (3.5-5.0); ALK PHOS 72 U/L (32-92); ANION GAP 8 (8-16); BILIRUBIN,TOTAL 0.6 mg/dl (0.2-1.0); BLOOD UREA NITROGEN 14 mg/dl (7-18); CALCIUM 10.8 mg/dl (8.4-10.2); CHLORIDE 101 mmol/L (98-107); CO2 29 mmol/L (22-28); CREATININE 0.7 mg/dl (0.6-1.3); GLUCOSE,RANDOM 106 mg/dl (74-106); MAGNESIUM 1.7 mg/dL (1.8-2.4); POTASSIUM 4.1 mmol/L (3.5-5.1); SGOT/AST 18 U/L (10-42); SGPT/ALT 12 U/L (10-40); SODIUM 138 mmol/L (136-145); TOT PROT 6.3 g/dl (6.4-8.3)
[2017-07-29] MEDS: CEFTRIAXONE 1 G/50 ML PREMIX 50 ML IVPB SCH (09:22)
[2017-07-29] MEDS: ATENOLOL 50 MG TABLET (FP) PO SCH (09:22)
[2017-07-29] MEDS: PARoxetine HCL 20 MG TABLET (FP) PO SCH (09:23)
[2017-07-29] MEDS: HYDROCHLOROTHIAZIDE 12.5 MG CAPSULE (FP) PO SCH (09:23)
[2017-07-29] MEDS: NIFEdipine E.R. 30 MG TABLET (FP) PO SCH (09:23)
[2017-07-29] MEDS: PANTOPRAZOLE 40 MG TABLET (FP) PO SCH (09:23)
[2017-07-29] MEDS ORDERED: PT OWN MED DRAWER 7, Y5N ONE (10:09)
[2017-07-29] MEDS: AZITHROMYCIN IVPB 250 MG in DEXTROSE 5%-WATER - 250 ML IVPB SCH (10:24)
[2017-07-29] MEDS ORDERED: MAGNESIUM SULFATE 2 GM in SODIUM CHLORIDE 100 ML IVPB ONE (10:28)
--- NOTE | 2017-07-29 10:39 | PN ---
Progress Note, Physician History of Present Illness: pulmonary alert,less hemoptysis,+c/o sob,lightheaded - Current Medication List Current Medications: Active Medications Albuterol/Ipratropium (Duoneb -) 1 amp NEB RQID [facility] Last Admin: 07/29/17 08:37 Dose: 1 amp Atenolol (Tenormin -) 100 mg PO DAILY [facility] Last Admin: 07/29/17 09:22 Dose: 100 mg Atorvastatin Calcium (Lipitor -) 10 mg PO HS [facility] Last Admin: 07/28/17 21:34 Dose: 10 mg Hydrochlorothiazide (Hctz -) 12.5 mg PO DAILY [facility] Last Admin: 07/29/17 09:23 Dose: 12.5 mg CEFTRIAXONE 1 G/50 ML PREMIX (Ceftriaxone 1 Gm-D5w Bag) 50 mls @ 100 mls/hr IVPB DAILY [facility] Last Admin: 07/29/17 09:22 Dose: 100 mls/hr Azithromycin 250 mg/ Dextrose 250 mls @ 250 mls/hr IVPB DAILY [facility] Stop: 07/31/17 10:59 Last Admin: 07/29/17 10:24 Dose: 250 mls/hr Magnesium Sulfate 2 gm/ Sodium (Chloride) 104 mls @ 100 mls/hr IVPB ONCE ONE Stop: 07/29/17 11:30 Nifedipine (Procardia Xl -) 30 mg PO DAILY [facility] Last Admin: 07/29/17 09:23 Dose: 30 mg Pantoprazole Sodium (Protonix -) 40 mg PO DAILY [facility] Last Admin: 07/29/17 09:23 Dose: 40 mg Paroxetine HCl (Paxil -) 40 mg PO DAILY [facility] Last Admin: 07/29/17 09:23 Dose: 40 mg - Objective Vital Signs: Vital Signs Temperature 98.0 F 07/29/17 06:00 Pulse Rate 64 07/29/17 06:00 Respiratory Rate 18 07/29/17 08:05 Blood Pressure 125/62 07/29/17 06:00 O2 Sat by Pulse Oximetry (%) 95 07/29/17 08:05 Constitutional: Yes: Well Nourished, Calm Eyes: Yes: WNL HENT: Yes: WNL Neck: Yes: WNL Cardiovascular: Yes: Regular Rate and Rhythm, S1, S2 Respiratory: Yes: Rhonchi (bilateral rhonchi) Gastrointestinal: Yes: Normal Bowel Sounds, Soft Extremities: Yes: WNL Edema: No Labs: CBC, BMP 07/29/17 07:00 07/29/17 07:00 INR, PTT INR 0.98 (0.82-1.09) 07/27/17 17:50 - ....Imaging Cat Scan: Report Reviewed, Image Reviewed Problem List - Problems (1) Pneumonia Code(s): J18.9 - PNEUMONIA, UNSPECIFIED ORGANISM Assessment/Plan Problem List - Problems (1) COPD (chronic obstructive pulmonary disease) Code(s): J44.9 - CHRONIC OBSTRUCTIVE PULMONARY DISEASE, UNSPECIFIED (2) Hemoptysis Code(s): R04.2 - HEMOPTYSIS (3) Bronchiectasis Code(s): J47.9 - BRONCHIECTASIS, UNCOMPLICATED s/p RML LOBECTOMY SECONDARY TO BRONCHIECTASIS 4 PNEUMONIA Assessment/Plan CONTINUE IV ANTIBIOTICS O2 QUANTIFY HEMOPTYSIS PFTS OUTPATIENT FLEXIBLE BRONCHOSCOPY OUTPATIENT DR CHAMBERS
[2017-07-29] MEDS ORDERED: MAGNESIUM SULF 50% (8.12 MEQ/2 ML-1 GM VIAL) IVPB ONE (10:45)
--- NOTE | 2017-07-29 15:56 | EKG ---
Test Reason : Blood Pressure : / mmHG Vent. Rate : 072 BPM Atrial Rate : 072 BPM P-R Int : 146 ms QRS Dur : 088 ms QT Int : 372 ms P-R-T Axes : 067 042 083 degrees QTc Int : 407 ms SINUS RHYTHM WITH OCCASIONAL PREMATURE VENTRICULAR COMPLEXES NONSPECIFIC T WAVE ABNORMALITY NO PREVIOUS ECGS AVAILABLE Confirmed by MD BHANDARI MARJORY ([id number]) on 07/29/2017 3:56:33 PM Referred By: Cuco Bell Confirmed By:JAVID BHANDARI MD
[2017-07-29] MEDS: ATORVASTATIN CA 10 MG TABLET (FP) PO SCH (21:38)
[2017-07-29] MEDS ORDERED: ALPRAZolam 0.25 MG TABLET PO PRN (23:48)
--- NOTE | 2017-07-30 07:36 | PN ---
Progress Note, Physician History of Present Illness: PULMONARY ALERT,LESS CONGESTED,-HEMOPTYSIS,STILL C/O CHEST HEAVINESS - Current Medication List Current Medications: Active Medications Albuterol/Ipratropium (Duoneb -) 1 amp NEB RQID [facility] Last Admin: 07/29/17 20:07 Dose: 1 amp Atenolol (Tenormin -) 100 mg PO DAILY [facility] Last Admin: 07/29/17 09:22 Dose: 100 mg Atorvastatin Calcium (Lipitor -) 10 mg PO HS [facility] Last Admin: 07/29/17 21:38 Dose: 10 mg Hydrochlorothiazide (Hctz -) 12.5 mg PO DAILY [facility] Last Admin: 07/29/17 09:23 Dose: 12.5 mg CEFTRIAXONE 1 G/50 ML PREMIX (Ceftriaxone 1 Gm-D5w Bag) 50 mls @ 100 mls/hr IVPB DAILY [facility] Last Admin: 07/29/17 09:22 Dose: 100 mls/hr Azithromycin 250 mg/ Dextrose 250 mls @ 250 mls/hr IVPB DAILY [facility] Stop: 07/31/17 10:59 Last Admin: 07/29/17 10:24 Dose: 250 mls/hr Nifedipine (Procardia Xl -) 30 mg PO DAILY [facility] Last Admin: 07/29/17 09:23 Dose: 30 mg Pantoprazole Sodium (Protonix -) 40 mg PO DAILY [facility] Last Admin: 07/29/17 09:23 Dose: 40 mg Paroxetine HCl (Paxil -) 40 mg PO DAILY [facility] Last Admin: 07/29/17 09:23 Dose: 40 mg - Objective Vital Signs: Vital Signs Temperature 97.8 F 07/30/17 06:00 Pulse Rate 72 07/30/17 06:00 Respiratory Rate 18 07/30/17 06:00 Blood Pressure 110/51 07/30/17 06:00 O2 Sat by Pulse Oximetry (%) 95 07/30/17 06:00 Constitutional: Yes: Well Nourished, Calm Eyes: Yes: WNL HENT: Yes: WNL Neck: Yes: WNL Cardiovascular: Yes: Regular Rate and Rhythm, S1, S2 Respiratory: Yes: Rhonchi (ALEXANDRU RHONCHI) Gastrointestinal: Yes: Normal Bowel Sounds, Soft Extremities: Yes: WNL Edema: No Labs: CBC, BMP 07/29/17 07:00 07/29/17 07:00 INR, PTT INR 0.98 (0.82-1.09) 07/27/17 17:50 Problem List - Problems (1) Pneumonia Code(s): J18.9 - PNEUMONIA, UNSPECIFIED ORGANISM Assessment/Plan Problem List - Problems (1) COPD (chronic obstructive pulmonary disease) Code(s): J44.9 - CHRONIC OBSTRUCTIVE PULMONARY DISEASE, UNSPECIFIED (2) Hemoptysis Code(s): R04.2 - HEMOPTYSIS IMPROVING (3) Bronchiectasis Code(s): J47.9 - BRONCHIECTASIS, UNCOMPLICATED s/p RML LOBECTOMY SECONDARY TO BRONCHIECTASIS 4 PNEUMONIA Assessment/Plan IV ANTIBIOTICS O2 QUANTIFY HEMOPTYSIS PFTS OUTPATIENT FLEXIBLE BRONCHOSCOPY OUTPATIENT DR CHAMBERS
[2017-07-30 08:27] LABS: ALBUMIN 3.4 g/dl (3.5-5.0); ALK PHOS 78 U/L (32-92); ANION GAP 4 (8-16); BILIRUBIN,TOTAL 0.5 mg/dl (0.2-1.0); BLOOD UREA NITROGEN 15 mg/dl (7-18); CALCIUM 10.4 mg/dl (8.4-10.2); CHLORIDE 102 mmol/L (98-107); CO2 29 mmol/L (22-28); CREATININE 0.8 mg/dl (0.6-1.3); GLUCOSE,RANDOM 106 mg/dl (74-106); MAGNESIUM 1.8 mg/dL (1.8-2.4); POTASSIUM 3.8 mmol/L (3.5-5.1); SGOT/AST 19 U/L (10-42); SGPT/ALT 11 U/L (10-40); SODIUM 135 mmol/L (136-145); TOT PROT 6.3 g/dl (6.4-8.3)
[2017-07-30 08:49] LABS: EOS % 1.4 % (0-4.5)
[2017-07-30] MEDS: ALBUTEROL SO4 2.5/IPRATROPIUM 0.5 INH SOL 3 ML VIAL.NEB. NEB SCH ×4 (09:00→20:45)
[2017-07-30 09:05] LABS: BASO % 0.7 % (0-2.0); HEMATOCRIT 33.8 % (32.4-45.2); HEMOGLOBIN 11.3 GM/dl (10.7-15.3); LYMPH % 24.1 % (8-40); MCHC 33.3 g/dl (32.0-36.0); MEAN CELL VOLUME 86.9 fl (80-96); MONO % 7.4 % (3.8-10.2); NEUT % 66.4 % (42.8-82.8); PLATELET COUNT 258 K/MM3 (134-434); RBC 3.89 M/mm3 (3.60-5.2); WHITE BLOOD COUNT 7.7 K/mm3 (4.0-10.8)
[2017-07-30] MEDS: AZITHROMYCIN IVPB 250 MG in DEXTROSE 5%-WATER - 250 ML IVPB SCH (09:45)
[2017-07-30] MEDS: PANTOPRAZOLE 40 MG TABLET (FP) PO SCH (09:45)
[2017-07-30] MEDS: ATENOLOL 50 MG TABLET (FP) PO SCH (09:45)
[2017-07-30] MEDS: NIFEdipine E.R. 30 MG TABLET (FP) PO SCH (09:45)
[2017-07-30] MEDS: HYDROCHLOROTHIAZIDE 12.5 MG CAPSULE (FP) PO SCH (09:45)
[2017-07-30] MEDS: PARoxetine HCL 20 MG TABLET (FP) PO SCH (09:45)
[2017-07-30] MEDS: CEFTRIAXONE 1 G/50 ML PREMIX 50 ML IVPB SCH (09:46)
--- NOTE | 2017-07-30 13:44 | PN ---
Physical Exam: SUBJECTIVE: Patient seen and examined, reports ongoing cough, denies any fever OBJECTIVE:patient is a 76 year-old female with a PMH significant for HTN, HLD, CAD, chronic bronchiectasis s/p right middle lung lobectomy (1998), hypercalcemia, a recently diagnosed right upper pole parathyroid adenoma, anxiety and depression, patient was admitted from the emergency department for hemoptyosis and PNA. Vital Signs Period Temp Pulse Resp BP Sys/García Pulse Ox Last 24 Hr 97.5 F-97.8 F 66-81 18-18 110-132/51-82 94-96 GENERAL: The patient is awake, alert, and fully oriented, in no acute distress. HEAD: Normal with no signs of trauma. EYES: PERRL, extraocular movements intact, sclera anicteric, conjunctiva clear. No ptosis. ENT: Ears normal, nares patent, oropharynx clear without exudates, moist mucous membranes. NECK: Trachea midline, full range of motion, supple. LUNGS: Breath sounds equal, diminished to bilateral base, course rhonchi throughout, moist cough noted, no wheezes, no crackles, no accessory muscle use. HEART: Regular rate and rhythm, S1, S2 without murmur, rub or gallop. ABDOMEN: Soft, nontender, nondistended, normoactive bowel sounds, no guarding, no rebound, no hepatosplenomegaly, no masses. EXTREMITIES: 2+ pulses, warm, well-perfused, no edema. NEUROLOGICAL: Cranial nerves II through XII grossly intact. Normal speech, gait not observed. PSYCH: Normal mood, normal affect. SKIN: Warm, dry, normal turgor, no rashes or lesions noted Laboratory Results - last 24 hr 07/30/17 07/30/17 07:33 07:33 WBC 7.7 RBC 3.89 Hgb 11.3 Hct 33.8 MCV 86.9 MCH 29.0 MCHC 33.3 RDW 13.0 Plt Count 258 MPV 9.0 Neutrophils % 66.4 Lymphocytes % 24.1 Monocytes % 7.4 Eosinophils % 1.4 Basophils % 0.7 Sodium 135 L Potassium 3.8 Chloride 102 Carbon Dioxide 29 H Anion Gap 4 L BUN 15 Creatinine 0.8 Creat Clearance w eGFR > 60 Random Glucose 106 Calcium 10.4 H Phosphorus 3.0 Magnesium 1.8 Total Bilirubin 0.5 AST 19 ALT 11 Alkaline Phosphatase 78 Total Protein 6.3 L Albumin 3.4 L Active Medications Generic Name Dose Route Start Last Admin Trade Name Freq PRN Reason Stop Dose Admin Albuterol/Ipratropium 1 amp 07/28/17 16:00 07/30/17 12:45 Duoneb - NEB 1 amp RQID DARIAN Administration Atenolol 100 mg 07/28/17 10:00 07/30/17 09:45 Tenormin - PO 100 mg DAILY DARIAN Administration Atorvastatin Calcium 10 mg 07/28/17 22:00 07/29/17 21:38 Lipitor - PO 10 mg HS DARIAN Administration Hydrochlorothiazide 12.5 mg 07/28/17 10:00 07/30/17 09:45 Hctz - PO 12.5 mg DAILY DARIAN Administration CEFTRIAXONE 1 G/50 ML PREMIX 50 mls @ 100 mls/hr 07/28/17 15:30 07/30/17 09: 46 Ceftriaxone 1 Gm-D5w Bag IVPB 100 mls/hr DAILY DARIAN Administration Azithromycin 250 mg/ Dextrose 250 mls @ 250 mls/hr 07/28/17 15:30 07/30/17 09 :45 IVPB 07/31/17 10:59 250 mls/hr DAILY DARIAN Administration Nifedipine 30 mg 07/28/17 10:00 07/30/17 09:45 Procardia Xl - PO 30 mg DAILY DARIAN Administration Pantoprazole Sodium 40 mg 07/28/17 11:30 07/30/17 09:45 Protonix - PO 40 mg DAILY DARIAN Administration Paroxetine HCl 40 mg 07/28/17 10:00 07/30/17 09:45 Paxil - PO 40 mg DAILY DARIAN Administration Microbiology 07/28/17 16:00 Urine - Urine Clean Catch Urine Culture - Final NO GROWTH OBTAINED 07/28/17 16:00 Blood - Peripheral Venous Blood Culture - Preliminary NO GROWTH OBTAINED AFTER 24 HOURS, INCUBATION TO CONTINUE FOR 4 DAYS. 07/28/17 16:00 Blood - Peripheral Venous Blood Culture - Preliminary NO GROWTH OBTAINED AFTER 24 HOURS, INCUBATION TO CONTINUE FOR 4 DAYS. Imaging 07/27/17 CXR: new left lower lung tumor density; post-surgical changes right apex 07/27/17 CT chest: chronic lung changes with evidence of prior granulomatosis disease unchanged since 2012; new groundglass opacification RUL ASSESSMENT/PLAN: 1) PULM RUL opacification Bronchiectasis, chronic, extensive - afebrile, no leukocytosis, blood and urine cultures are negative to date - continue empiric azithro and ceftriaxone - incentive spiromter and peak flow - will require close follow up for outpatient bronchoscopy - continue duonebs standing and hold ASA - pulmonary consulted and following. 2) cardiovascular Hypertension --continue atenolol, nifedipine, HCTZ Hyperlipidemia --continue Lipitor Coronary artery disease --continue atenolol 3) endo Hypercalcemia Parathyroid adenoma - being followed by Dr. Hall at [place]; has appt with surgeon in mid- August 4) psych Anxiety/Depression - continue Paxil FEN Fluids: PO intake adequate Electrolytes:hypokalemia resolved, replete as indicated Nutrition: low sodium DVT prophylaxis: mechanical prophylaxis only; PT, SCDs, oob, ambulation Dispo: continues to require observation.
[2017-07-30] MEDS ORDERED: MAGNESIUM SULFATE 2 GM in SODIUM CHLORIDE 100 ML IVPB ONE (13:47)
[2017-07-30] MEDS ORDERED: MAGNESIUM SULF 50% (8.12 MEQ/2 ML-1 GM VIAL) IVPB ONE (14:15)
[2017-07-30] MEDS ORDERED: POTASSIUM CHLORIDE TABS 20 MEQ TABLET.ER (FP) PO ONE (14:15)
[2017-07-30] MEDS ORDERED: ALPRAZolam 0.25 MG TABLET PO ONE ×2 (19:30→22:30)
[2017-07-30] MEDS: ATORVASTATIN CA 10 MG TABLET (FP) PO SCH (21:34)
--- NOTE | 2017-07-31 07:36 | PN ---
Progress Note, Physician History of Present Illness: PULMONARY ALERT,-RESP DISTRESS,FEELS WEAK,- HEMOPTYSIS - Current Medication List Current Medications: Active Medications Albuterol/Ipratropium (Duoneb -) 1 amp NEB RQID [facility] Last Admin: 07/30/17 20:45 Dose: 1 amp Atenolol (Tenormin -) 100 mg PO DAILY [facility] Last Admin: 07/30/17 09:45 Dose: 100 mg Atorvastatin Calcium (Lipitor -) 10 mg PO HS [facility] Last Admin: 07/30/17 21:34 Dose: 10 mg Hydrochlorothiazide (Hctz -) 12.5 mg PO DAILY [facility] Last Admin: 07/30/17 09:45 Dose: 12.5 mg CEFTRIAXONE 1 G/50 ML PREMIX (Ceftriaxone 1 Gm-D5w Bag) 50 mls @ 100 mls/hr IVPB DAILY [facility] Last Admin: 07/30/17 09:46 Dose: 100 mls/hr Azithromycin 250 mg/ Dextrose 250 mls @ 250 mls/hr IVPB DAILY [facility] Stop: 07/31/17 10:59 Last Admin: 07/30/17 09:45 Dose: 250 mls/hr Nifedipine (Procardia Xl -) 30 mg PO DAILY [facility] Last Admin: 07/30/17 09:45 Dose: 30 mg Pantoprazole Sodium (Protonix -) 40 mg PO DAILY [facility] Last Admin: 07/30/17 09:45 Dose: 40 mg Paroxetine HCl (Paxil -) 40 mg PO DAILY [facility] Last Admin: 07/30/17 09:45 Dose: 40 mg - Objective Vital Signs: Vital Signs Temperature 98.0 F 07/31/17 05:59 Pulse Rate 70 07/31/17 05:59 Respiratory Rate 18 07/31/17 05:59 Blood Pressure 113/54 07/31/17 05:59 O2 Sat by Pulse Oximetry (%) 93 L 07/31/17 05:59 Constitutional: Yes: Well Nourished, Calm Eyes: Yes: WNL HENT: Yes: WNL Neck: Yes: WNL Cardiovascular: Yes: Regular Rate and Rhythm, S1, S2 Respiratory: Yes: Rales, Rhonchi Gastrointestinal: Yes: WNL ...Rectal Exam: Yes: WNL Extremities: Yes: WNL Labs: CBC, BMP Problem List - Problems (1) Pneumonia Code(s): J18.9 - PNEUMONIA, UNSPECIFIED ORGANISM Assessment/Plan Problem List - Problems (1) COPD (chronic obstructive pulmonary disease) Code(s): J44.9 - CHRONIC OBSTRUCTIVE PULMONARY DISEASE, UNSPECIFIED (2) Hemoptysis Code(s): R04.2 - HEMOPTYSIS RESOLVED (3) Bronchiectasis Code(s): J47.9 - BRONCHIECTASIS, UNCOMPLICATED s/p RML LOBECTOMY SECONDARY TO BRONCHIECTASIS 4 PNEUMONIA Assessment/Plan PO ANTIBIOTICS O2 PFTS OUTPATIENT FLEXIBLE BRONCHOSCOPY OUTPATIENT DR CHAMBERS
[2017-07-31 08:13] LABS: BASO % 0.8 % (0-2.0); EOS % 2.2 % (0-4.5); HEMATOCRIT 32.7 % (32.4-45.2); HEMOGLOBIN 10.8 GM/dl (10.7-15.3); LYMPH % 27.9 % (8-40); MCH 28.9 pg (25.7-33.7); MCHC 33.2 g/dl (32.0-36.0); MEAN CELL VOLUME 87.2 fl (80-96); MEAN PLT VOLUME 8.6 fl (7.5-11.1); NEUT % 60.1 % (42.8-82.8); PLATELET COUNT 247 K/MM3 (134-434); RBC 3.75 M/mm3 (3.60-5.2); WHITE BLOOD COUNT 6.4 K/mm3 (4.0-10.8)
[2017-07-31] MEDS: ALBUTEROL SO4 2.5/IPRATROPIUM 0.5 INH SOL 3 ML VIAL.NEB. NEB SCH ×2 (08:43→13:00)
[2017-07-31 09:09] LABS: ALBUMIN 3.3 g/dl (3.5-5.0); ALK PHOS 75 U/L (32-92); ANION GAP 6 (8-16); BILIRUBIN,TOTAL 0.5 mg/dl (0.2-1.0); BLOOD UREA NITROGEN 10 mg/dl (7-18); CALCIUM 10.7 mg/dl (8.4-10.2); CHLORIDE 101 mmol/L (98-107); CO2 28 mmol/L (22-28); CREATININE 0.7 mg/dl (0.6-1.3); GLUCOSE,RANDOM 94 mg/dl (74-106); PHOSPHOROUS 3.1 mg/dl (2.5-4.6); POTASSIUM 3.7 mmol/L (3.5-5.1); SGOT/AST 17 U/L (10-42); SGPT/ALT 11 U/L (10-40); SODIUM 135 mmol/L (136-145); TOT PROT 6.2 g/dl (6.4-8.3)
[2017-07-31] MEDS ORDERED: REFRIGERATED ANITBIOTICS ONE (09:26)
[2017-07-31 09:38] VITALS: BP 132/55; PULSE 88; TEMP 97.9
[2017-07-31] MEDS: CEFTRIAXONE 1 G/50 ML PREMIX 50 ML IVPB SCH (09:38)
[2017-07-31] MEDS: HYDROCHLOROTHIAZIDE 12.5 MG CAPSULE (FP) PO SCH (09:39)
[2017-07-31] MEDS: ATENOLOL 50 MG TABLET (FP) PO SCH (09:39)
[2017-07-31] MEDS: PARoxetine HCL 20 MG TABLET (FP) PO SCH (09:39)
[2017-07-31] MEDS: NIFEdipine E.R. 30 MG TABLET (FP) PO SCH (09:39)
[2017-07-31] MEDS: PANTOPRAZOLE 40 MG TABLET (FP) PO SCH (09:39)
[2017-07-31] MEDS: AZITHROMYCIN IVPB 250 MG in DEXTROSE 5%-WATER - 250 ML IVPB SCH (09:42)
--- NOTE | 2017-07-31 10:50 | DS ---
Physical Exam: SUBJECTIVE: Patient seen and examined OBJECTIVE: Vital Signs Period Temp Pulse Resp BP Sys/García Pulse Ox Last 24 Hr 97.6 F-98.0 F 62-88 16-18 110-138/46-69 92-96 PHYSICAL EXAM GENERAL: The patient is awake, alert, and fully oriented, in no acute distress. HEAD: Normal with no signs of trauma. EYES: PERRL, extraocular movements intact, sclera anicteric, conjunctiva clear. ENT: Ears normal, nares patent, oropharynx clear without exudates, moist mucous membranes. NECK: Trachea midline, full range of motion, supple. LUNGS: Breath sounds equal, clear to auscultation bilaterally, no wheezes, no crackles, no accessory muscle use. HEART: Regular rate and rhythm, S1, S2 without murmur, rub or gallop. ABDOMEN: Soft, nontender, nondistended, normoactive bowel sounds, no guarding, no rebound, no hepatosplenomegaly, no masses. EXTREMITIES: 2+ pulses, warm, well-perfused, no edema. NEUROLOGICAL: Cranial nerves II through XII grossly intact. Normal speech, gait not observed. PSYCH: Normal mood, normal affect. SKIN: Warm, dry, normal turgor, no rashes or lesions noted. LABS Laboratory Results - last 24 hr 07/31/17 07/31/17 07:30 07:30 WBC 6.4 RBC 3.75 Hgb 10.8 Hct 32.7 MCV 87.2 MCH 28.9 MCHC 33.2 RDW 13.0 Plt Count 247 MPV 8.6 Neutrophils % 60.1 Lymphocytes % 27.9 Monocytes % 9.0 Eosinophils % 2.2 Basophils % 0.8 Sodium 135 L Potassium 3.7 Chloride 101 Carbon Dioxide 28 Anion Gap 6 L BUN 10 D Creatinine 0.7 Creat Clearance w eGFR > 60 Random Glucose 94 Calcium 10.7 H Phosphorus 3.1 Magnesium 2.0 Total Bilirubin 0.5 AST 17 ALT 11 Alkaline Phosphatase 75 Total Protein 6.2 L Albumin 3.3 L HOSPITAL COURSE: Date of Admission:07/29/17 Date of Discharge: 07/31/17 Pre hospital course 76 year-old female with a PMH significant for HTN, HLD, CAD, chronic bronchiectasis s/p right middle lung lobectomy (1998), hypercalcemia, a recently diagnosed right upper pole parathyroid adenoma, anxiety and depression. Patient presented to the ED complaining of julio hemoptysis x 5 days. Patient states the last time she had hemoptysis was many years ago. Spoke with patient's PCP Dr. Rousseau who states patient had chronic hemoptysis years ago secondary to bronchiectasis which led to the lobectomy. She has never had a diagnosis of cancer. Patient was a heavy smoker, quit 30 years ago. Patient denies pain. Denies fever, sweats, chills, night sweats. Denies recent weight loss. According to Dr. Rousseau patient weighed 132lbs two weeks ago. Today she is 128lbs. No recent sick exposures. Last travel was last summer to [place]. She takes a daily ASA, on no other anticoagulation. ER course (1) K 3.2 (2) julio hemoptysis Subsequent hospital course Imagning 07/27/17 CXR: new left lower lung tumor density; post-surgical changes right apex 07/27/17 CT chest: chronic lung changes with evidence of prior granulomatosis disease unchanged since 2012; new groundglass opacification RUL ASSESSMENT/PLAN RUL opacification Bronchiectasis, chronic, extensive --no fever, no leukocytosis --treated with empiric azithro and ceftriaxone, completed 5 days --duonebs --ASA held --will need outpatient PFTs, possible bronchoscopy Hypertension --continued atenolol, nifedipine, HCTZ Hyperlipidemia --continued Lipitor Coronary artery disease --continued atenolol Hypercalcemia Parathyroid adenoma --being followed by Dr. Hall at [facility]; has appt with surgeon in mid- August Anxiety/Depression --continued Paxil Hypokalemia --repleted Minutes to complete discharge: 35 Discharge Summary Reason For Visit: COUGH WITH BLOOD STREAKS Current Active Problems Bronchiectasis (Acute) COPD (chronic obstructive pulmonary disease) (Acute) Hemoptysis (Acute) Lung cancer, middle lobe (Acute) Pneumonia (Acute) Condition: Stable - Instructions Referrals: Abelardo Farias MD [Staff Physician] - 1 Week Papito Rousseau MD [Primary Care Provider] - Disposition: HOME - Home Medications Comprehensive Discharge Medication List: Ambulatory Orders Alprazolam [Xanax] 0.25 mg PO QID PRN 02/20/13 Aspirin [ASA -] 81 mg PO DAILY 02/20/13 Nifedipine [Nifedipine ER] 30 mg PO HS 02/20/13 Omeprazole [Prilosec (RX)] 20 mg PO BID 02/20/13 Pravastatin Sodium [Pravachol -] 40 mg PO HS 02/20/13 Hydrochlorothiazide [Hctz -] 12.5 mg PO DAILY 09/21/13 Cholecalciferol (Vitamin D3) [Vitamin D3] 5,000 unit PO DAILY 02/06/17 Paroxetine HCl [Paxil] 40 mg PO DAILY 02/06/17 Potassium Chloride [Klor-Con 8] 8 meq PO DAILY 02/06/17 Atenolol [Tenormin] 100 mg PO DAILY 07/27/17 This patient is new to me today: No Emergency Visit: Yes ED Registration Date: 07/29/17 Care time: The patient presented to the Emergency Department on the above date and was hospitalized for further evaluation of their emergent condition. Critical Care patient: No - Discharge Referral Referred to [facility] No
== END 2017-07-31 13:12 | disposition home health service (06) | DRG 194 ==
LOC: FER 16:44 → FM/S 21:18 → OBSVTOIN 07-29 11:17
PROVIDERS: ADMIT Internal Medicine; ATTEND Nurse Practitioner Family
DX: J18.9 Pneumonia, unspecified organism (principal); R04.2 Hemoptysis; I10 Essential (primary) hypertension; E78.5 Hyperlipidemia, unspecified; F41.9 Anxiety disorder, unspecified; F32.9 Major depressive disorder, single episode, unspecified; I25.10 Atherosclerotic heart disease of native coronary artery without angina pectoris; E21.3 Hyperparathyroidism, unspecified; Z87.891 Personal history of nicotine dependence; J47.9 Bronchiectasis, uncomplicated; E87.6 Hypokalemia; Z85.118 Personal history of other malignant neoplasm of bronchus and lung
CPT/HCPCS: 36415; 71046-TC; 71250-TC; 80053; 81003; 81015; 82550; 83735; 83880; 84100; 84484; 85025; 85610; 85651; 85730; 86140; 86850; 86900; 86901; 87040; 87086; 93005; 94010; 94150; 94640; 97116-GP; 97161-GP; 99282-25; G0378

== ENCOUNTER 2017-09-12 20:29 | Inpatient (IN) | payer OTHER, MEDICARE ==
--- NOTE | 2017-09-12 20:46 | PDOC ---
History of Present Illness - General History Source: Patient, Family, Old Records Exam Limitations: Dementia - History of Present Illness Initial Comments: 09/12/17 20:55 The patient is a 76 year old female with past medical history hypertension, hyperlipidemia, CAD, bronchiecstasis s/p right middle lobectomy (1998), anxiety and depression who presents to the ED with complaints of productive cough x1 day. The patient states she has been coughing up sputum that is yellow in color. She reports additional chest pain and nausea from coughing all day. The patient was seen by her maxillofacial pathology yesterday in which she was prescribed levaquin. She reports taking the first dose of this medication this evening. She denies any fevers, chills, worsening shortness of breath, or any urinary symptoms. The patient was admitted to the hospital in July for hemoptysis. PCP: Dr. Papito Rousseau PAST MEDICAL HISTORY: no significant history PAST SURGICAL HISTORY: no significant history FAMILY HISTORY: no pertinent history SOCIAL HISTORY: Pt lives alone and is . Son lives across the street MEDICATIONS: reviewed ALLERGIES: As per nursing notes ROS General: No fevers or chills, no weakness, no weight loss HEENT: No change in vision. No sore throat,. No ear pain CardioVascular: No chest pain or shortness of breath Respiratory: Present: productive cough No wheezing. Gastrointestinal: no nausea, vomiting, diarrhea or constipation, No rectal bleeding Genitourinary: No dysuria, hematuria, or frequency Musculoskeletal: No joint or muscle pain or swelling Neurologic: No headache, vertigo, dizziness or loss of consciousness Psychiatric: nor depression Skin: No rashes or easy bruising Endocrine: no increased thirst or abnormal weight change Allergic: no skin or latex allergy All other systems reviewed and normal PE General: Well-nourished well-developed individual, no acute distress HEENT: Throat: Normal, tonsils normal, no erythema or exudate Neck: Supple, no meningeal signs, no lymphadenopathy Eyes::Pupils equal reactive and round, extraocular motion intact Chest: Nontender to palpation Cardiac: S1-S2 normal, regular rate and rhythm, no murmurs rubs or gallops Respiratory: Decreased breath sounds on right. Lungs clear to auscultation bilateral Abdomen: Soft, nondistended, normal bowel sounds, nontender to palpation diffusely Extremities: Warm, dry, no cyanosis, clubbing, or edema Skin: No rashes Neuro: Alert and oriented x3, nonfocal exam, grossly intact, normal gait Psych: Normal mood and affect 09/12/17 20:57 <Ashley Orr - Last Filed: 09/12/17 21:07> - General History Source: Patient, Family Exam Limitations: Dementia - History of Present Illness Initial Comments: A portion of this note was documented by scribe services under my direction. I have reviewed the details of the note, within reason, and agree with the documentation. The case summary and management plan written by me. Medical decision making this is a 76-year-old female who comes in post a day and a half of nausea vomiting and diarrhea also complaining of cough congestion. Patient was at her maxillofacial pathology today and started on Levaquin but did not take the first dose to this evening. Patient clinically appears to be dehydrated area patient is not vomiting in the emergency room. We'll give patient some IV hydration, send off bloodwork including CBC, comp, lipase, cardiac profile. We will obtain EKG and chest x-ray. EKG shows normal sinus rhyth, , with nonspecific ST-T wave changes. Chest x-ray shows chronic changes but no acute pathology 21:00 Reevaluation. Patient has had no further vomiting or diarrhea here in the emergency room. Patient is noted to be coughing with a productive cough of yellow phlegm. 22:00 Patient's potassium is 2.9. Patient will be placed in observation for repletion of her potassium and IV fluids. Patient's white count was normal there is no left shift. Patient is already on by mouth Levaquin. Patient's troponin was not measurable We'll place an observation under hospitalist service. Signout given to the admitting hospitalist, who accepts the patient. Discussed plan with the patient family at bedside, Patient and family aware of the plan and agree. Patient is clinically unchanged and stable. <Eldon Nelson I - Last Filed: 09/12/17 22:55> - General Chief Complaint: Respiratory Stated Complaint: COUGH, VOMITING, DIARRHEA Time Seen by Provider: 09/12/17 20:34 Past History <Ashley Orr - Last Filed: 09/12/17 21:07> - Past Medical History Anemia: No Asthma: No Cancer: No Cardiac Disorders: No CVA: No COPD: Yes CHF: No Dementia: No Diabetes: No GI Disorders: Yes (UPPER ENDO.REVEALED GLOTTIS NOT "CLOSING"-GOES TO SPEECH THERAPY, duodenal) Disorders: No HTN: Yes Hypercholesterolemia: Yes Liver Disease: No Seizures: No Thyroid Disease: Yes (parathyroid) - Surgical History Abdominal Surgery: Yes (DUODENAL ULCER RESECTION MANY YEARS AGO) Appendectomy: No Cardiac Surgery: No Cholecystectomy: No Lung Surgery: Yes (RML LOBECTOMY FOR BLEEDING) Neurologic Surgery: No Orthopedic Surgery: Yes (RIGHT KNEE ARTHROSCOPY 2011) - Suicide/Smoking/Psychosocial Hx Smoking History: Former smoker Have you smoked in the past 12 months: No Number of Cigarettes Smoked Daily: 4 If you are a former smoker, when did you quit?: 20 YRS AGO Hx Alcohol Use: No Drug/Substance Use Hx: No Substance Use Type: None Hx Substance Use Treatment: No <Eldon Nelson I - Last Filed: 09/12/17 22:55> - Past Medical History Allergies/Adverse Reactions: Allergies Allergy/AdvReac Type Severity Reaction Status Date / Time Sulfa (Sulfonamide Allergy Verified 09/12/17 20:59 Antibiotics) Home Medications: Ambulatory Orders Alprazolam [Xanax] 0.25 mg PO HS PRN 02/20/13 Omeprazole [Prilosec (RX)] 20 mg PO DAILY 02/20/13 Pravastatin Sodium [Pravachol -] 40 mg PO DAILY 02/20/13 Cholecalciferol (Vitamin D3) [Vitamin D3] 5,000 unit PO DAILY 02/06/17 Paroxetine HCl [Paxil] 40 mg PO DAILY 02/06/17 Felodipine [Felodipine ER] 2.5 mg PO DAILY 09/12/17 Fluticasone/Vilanterol [Breo Ellipta 200-25 Mcg INH] 1 each IH DAILY 09/12/17 Levofloxacin [Levaquin] 500 mg PO DAILY 09/12/17 Metoprolol Tartrate 50 mg PO DAILY 09/12/17 Umeclidinium [place] [Incruse Ellipta] 62.5 mcg IH DAILY 09/12/17 Review of Systems - Review of Systems Able to Perform ROS?: Yes <Ashley Orr - Last Filed: 09/12/17 21:07> *Physical Exam - Vital Signs Last Vital Signs Temp Pulse Resp BP Pulse Ox 98.5 F 101 H 20 154/86 93 L 09/12/17 20:30 09/12/17 20:30 09/12/17 20:30 09/12/17 20:30 09/12/17 20:30 <Ashley Orr - Last Filed: 09/12/17 21:07> Heart Score/ECG Review #1 ECG reviewed & interpreted by me at: 21:02 General ECG Interpretation: Sinus Rhythm (84 bpm) 09/12/17 21:[address] and T wave abnormality. <Ashley Orr - Last Filed: 09/12/17 21:07> ED Treatment Course - LABORATORY CBC & Chemistry Diagram: 09/12/17 21:10 09/12/17 21:10 <Eldon Nelson I - Last Filed: 09/12/17 22:55> *DC/Admit/Observation/Transfer - Attestations Scribe Attestion: 09/12/17 20:57 Documentation prepared by Ashley Orr, acting as medical accounting clerk for Eldon Nelson MD. <Ashley Orr - Last Filed: 09/12/17 21:07> - Discharge Dispostion Admit: Yes <Eldon Nelson I - Last Filed: 09/12/17 22:55> Diagnosis at time of Disposition: Dehydration, Hypokalemia - Discharge Dispostion Condition at time of disposition: Stable - Referrals Referrals: Papito Rousseau MD [Primary Care Provider] -
[2017-09-12] MEDS ORDERED: SODIUM CHLORIDE 1,000 ML IV ONE (21:10)
[2017-09-12 21:24] LABS: BASO % 0.6 % (0-2.0); EOS % 0.1 % (0-4.5); HEMATOCRIT 34.1 % (32.4-45.2); HEMOGLOBIN 11.4 GM/dl (10.7-15.3); LYMPH % 8.9 % (8-40); MCH 27.1 pg (25.7-33.7); MCHC 33.3 g/dl (32.0-36.0); MEAN CELL VOLUME 81.4 fl (80-96); MEAN PLT VOLUME 8.5 fl (7.5-11.1); MONO % 7.9 % (3.8-10.2); NEUT % 82.5 % (42.8-82.8); PLATELET COUNT 234 K/MM3 (134-434); RBC 4.19 M/mm3 (3.60-5.2); RDW 12.7 % (11.6-15.6); WHITE BLOOD COUNT 6.8 K/mm3 (4.0-10.8)
[2017-09-12 21:34] LABS: ALBUMIN 3.5 g/dl (3.5-5.0); ALK PHOS 96 U/L (32-92); ANION GAP 9 (8-16); BLOOD UREA NITROGEN 10 mg/dl (7-18); CHLORIDE 96 mmol/L (98-107); CO2 27 mmol/L (22-28); CREATININE 0.8 mg/dl (0.6-1.3); GLUCOSE,RANDOM 160 mg/dl (74-106); SGOT/AST 28 U/L (10-42); SGPT/ALT 12 U/L (10-40); SODIUM 132 mmol/L (136-145)
[2017-09-12 21:43] LABS: POTASSIUM 2.9 mmol/L (3.5-5.1)
[2017-09-12 21:48] LABS: BILIRUBIN,TOTAL 0.5 mg/dl (0.2-1.0)
[2017-09-12] MEDS ORDERED: POTASSIUM CHLORIDE TABS 20 MEQ TABLET.ER (FP) PO ONE ×2 (21:49→21:57)
[2017-09-12] MEDS ORDERED: POTASSIUM CHLORIDE 20 MEQ PREMIX IVPB 100 ML IVPB ONE (21:49)
[2017-09-12] MEDS ORDERED: KCL 10 MEQ IVPB 20 MEQ/200 ML INFUS.BAG IVPB ONE (21:57)
[2017-09-12] MEDS: KCL 10 MEQ IVPB 10 MEQ/100 ML INFUS.BAG IVPB SCH ×2 (22:03→23:01)
[2017-09-12 22:04] LABS: LIPASE 73 U/L (73-393)
[2017-09-12 23:43] VITALS: BMI 24.1
[2017-09-13] MEDS ORDERED: MELATONIN 5 MG TABLETS PO ONE (00:47)
[2017-09-13] MEDS ORDERED: ONDANSETRON 4 MG/2 ML VIAL IVPUSH ONE (00:47)
--- NOTE | 2017-09-13 00:54 | HP ---
CHIEF COMPLAINT: cough PCP: [facility], Pulmonology: [facility] HISTORY OF PRESENT ILLNESS: This is a 75 year old male with a significant past medical history of bronchiectasis s/p RMLobectomy, COPD who presented to the ED with cough, productive yellow and N/V x 1-2 days. She was seen by her petroleum engineering professor who started her on levaquin and inhalers 09/11 without relief. She just started the levaquin this past evening. ER course was notable for: (1) WBC 6.8 (2) Potassium 2.9 (3) CXR unchanged Recent Travel: pt denies PAST MEDICAL HISTORY: HTN, HLD, CAD, bronchiectasis, COPD, anxiety/depression, parathyroid adenoma ( scheduled for removal in October) PAST SURGICAL HISTORY: Billroth II (1968) GAURAV/BSO (1978) Right middle lung lobectomy (1998) Right foot calcaneal spur (2003) Right knee arthroscopy (2011) Cataracts (2012) Right ankle arthroscopy (2013) Left shoulder arthroscopy (2014) Social History: Smoking: quit smoking 25y ago, smoked 4ppd x 30years Alcohol: pt denies Drugs: pt denies Family History: father 46 heart disease mother 69 diabetes and heart disease sister with breast cancer brother with PVD s/p stent sister alive with 7 coronary stents sister alive with heart disease Allergies Sulfa (Sulfonamide Antibiotics) Allergy (Verified 09/12/17 20:59) HOME MEDICATIONS: 3 Medication Instructions Recorded Alprazolam [Xanax] 0.25 mg PO HS PRN 02/20/13 Omeprazole [Prilosec (RX)] 20 mg PO DAILY 02/20/13 Pravastatin Sodium [Pravachol -] 40 mg PO DAILY 02/20/13 Cholecalciferol (Vitamin D3) 5,000 unit PO DAILY 02/06/17 [Vitamin D3] Paroxetine HCl [Paxil] 40 mg PO DAILY 02/06/17 Felodipine [Felodipine ER] 2.5 mg PO DAILY 09/12/17 Fluticasone/Vilanterol [Breo 1 each IH DAILY 09/12/17 Ellipta 200-25 Mcg INH] Levofloxacin [Levaquin] 500 mg PO DAILY 09/12/17 Metoprolol Tartrate 50 mg PO DAILY 09/12/17 Umeclidinium [place] [Incruse 62.5 mcg IH DAILY 09/12/17 Ellipta] REVIEW OF SYSTEMS CONSTITUTIONAL: Absent: fever, chills, diaphoresis, generalized weakness, malaise, loss of appetite, weight change HEENT: Absent: rhinorrhea, nasal congestion, throat pain, throat swelling, difficulty swallowing, mouth swelling, ear pain, eye pain, visual changes CARDIOVASCULAR: Absent: chest pain, syncope, palpitations, irregular heart rate, lightheadedness , peripheral edema RESPIRATORY: Present: cough, shortness of breath Absent: dyspnea with exertion, orthopnea, wheezing, stridor, hemoptysis GASTROINTESTINAL: Present: nausea, vomiting Absent: abdominal pain, abdominal distension, diarrhea, constipation, melena, hematochezia GENITOURINARY: Absent: dysuria, frequency, urgency, hesitancy, hematuria, flank pain, genital pain MUSCULOSKELETAL: Absent: myalgia, arthralgia, joint swelling, back pain, neck pain SKIN: Absent: rash, itching, pallor HEMATOLOGIC/IMMUNOLOGIC: Absent: easy bleeding, easy bruising, lymphadenopathy, frequent infections ENDOCRINE: Absent: unexplained weight gain, unexplained weight loss, heat intolerance, cold intolerance NEUROLOGIC: Absent: headache, focal weakness or paresthesias, dizziness, unsteady gait, seizure, mental status changes, bladder or bowel incontinence PSYCHIATRIC: Absent: anxiety, depression, suicidal or homicidal ideation, hallucinations. PHYSICAL EXAMINATION Vital Signs - 24 hr 3 09/12/17 09/12/17 09/12/17 20:30 20:35 23:14 Temperature 98.5 F 97.9 F Pulse Rate 101 H 101 H 77 Respiratory 20 20 Rate Blood Pressure 154/86 141/66 O2 Sat by Pulse 93 L 96 94 L Oximetry (%) GENERAL: Awake, alert, and fully oriented, in no acute distress. HEAD: Normal with no signs of trauma. EYES: Pupils equal, round and reactive to light, extraocular movements intact, sclera anicteric, conjunctiva clear. No lid lag. EARS, NOSE, THROAT: Ears normal, nares patent, oropharynx clear without exudates. Moist mucous membranes. NECK: Normal range of motion, supple without lymphadenopathy, JVD, or masses. LUNGS: No wheezes, + crackles Right base. No accessory muscle use. HEART: Regular rate and rhythm, normal S1 and S2 without murmur, rub or gallop. ABDOMEN: Soft, nontender, not distended, normoactive bowel sounds, no guarding, no rebound, no masses. No hepatomegaly or splenomegaly. MUSCULOSKELETAL: Normal range of motion at all joints. No bony deformities or tenderness. No CVA tenderness. UPPER EXTREMITIES: 2+ pulses, warm, well-perfused. No cyanosis. No clubbing. No peripheral edema. LOWER EXTREMITIES: 2+ pulses, warm, well-perfused. No calf tenderness. No peripheral edema. NEUROLOGICAL: Cranial nerves II-XII intact. Normal speech. Normal gait. PSYCHIATRIC: Cooperative. Good eye contact. Appropriate mood and affect. SKIN: Warm, dry, normal turgor, no rashes or lesions noted, normal capillary refill. Laboratory Results - last 24 hr 3 09/12/17 09/12/17 09/12/17 21:10 21:10 21:10 WBC 6.8 RBC 4.19 Hgb 11.4 Hct 34.1 MCV 81.4 MCH 27.1 MCHC 33.3 RDW 12.7 Plt Count 234 MPV 8.5 Neutrophils % 82.5 Lymphocytes % 8.9 Monocytes % 7.9 Eosinophils % 0.1 Basophils % 0.6 Sodium 132 L Potassium 2.9 L* D Chloride 96 L Carbon Dioxide 27 Anion Gap 9 BUN 10 Creatinine 0.8 Creat Clearance w eGFR > 60 Random Glucose 160 H D Calcium 10.0 Total Bilirubin 0.5 AST 28 D ALT 12 Alkaline Phosphatase 96 H D Creatine Kinase 55 Troponin I < 0.03 Total Protein 7.0 Albumin 3.5 Lipase 73 ECG Normal sinus rhythm vent rate 84, QTC [address]/T changes Radiology Reports CXR-final read pending- no acute changes noted ASSESSMENT/PLAN: 76yF with PMH HTN, HLD, CAD, bronchiectasis, COPD, anxiety/depression, parathyroid adenoma presented with productive cough and N/V. COPD exacerbation - start duonebs qid - home breo ellipta changed to formulary symbicort - pulmonary consult - cont levaquin hypokalemia - potassium repleted - bmp and mag ordered N/V - no further vomiting on floor - ondansetron given for nausea, monitor efficacy HTN/HLD/CAD - cont home metoprolol, felodipine, home pravachol changed to formulary lipitor anxiety/depression - cont paxil, xanax held due to increased fall risk DVT PPX - heparin deferred as anticipated LOS <48h FEN - hold further IVF, appear euvolemic at present. - BMP now and in am - low sodium diet in am Dispo: Pt currently requires further monitoring/observation for management of her emergent condition. Visit type - Emergency Visit Emergency Visit: Yes ED Registration Date: 09/12/17 Care time: The patient presented to the Emergency Department on the above date and was hospitalized for further evaluation of their emergent condition. - New Patient This patient is new to me today: Yes Date on this admission: 09/13/17 - Critical Care Critical Care patient: No Hospitalist Screening - Colonoscopy Questionnaire Colonoscopy Questionnaire: Colonoscopy Questionnaire - Patient: 50 - 75 years old and never had a screening colonoscopy: No History of colon or rectal polyps, or CA: No History of IBD, Crohn's disease or UC: No History of abdominal radiation therapy as a child: No - Relative: 1 with colon or rectal CA, or polyps at age 60 or younger: No Colon or rectal CA diagnosed at age 45 or younger: No Multiple relatives with colon or rectal CA: No - Outcome: Screening Result: Negative Screen
[2017-09-13] MEDS ORDERED: guaiFENesin 200 MG/10 ML 10 ML UNIT-DOSE CUPS PO ONE (01:40)
[2017-09-13 02:09] LABS: ANION GAP 11 (8-16); BLOOD UREA NITROGEN 8 mg/dL (7-18); CALCIUM 9.6 mg/dL (8.5-10.1); CHLORIDE 100 mmol/L (98-107); CO2 26 mmol/L (21-32); CREATININE 0.7 mg/dL (0.55-1.02); GLUCOSE,RANDOM 118 mg/dL (74-106); MAGNESIUM 1.8 mg/dL (1.8-2.4); POTASSIUM 3.7 mmol/L (3.5-5.1); SODIUM 137 mmol/L (136-145)
[2017-09-13] MEDS: ALBUTEROL SO4 2.5/IPRATROPIUM 0.5 INH SOL 3 ML VIAL.NEB. NEB SCH ×4 (08:30→21:26)
[2017-09-13 08:41] LABS: BASO % 0.3 % (0-2.0); EOS % 0.2 % (0-4.5); HEMATOCRIT 30.3 % (32.4-45.2); LYMPH % 17.8 % (8-40); MEAN CELL VOLUME 81.8 fl (80-96); MEAN PLT VOLUME 8.9 fl (7.5-11.1); MONO % 15.2 % (3.8-10.2); NEUT % 66.5 % (42.8-82.8); PLATELET COUNT 211 K/MM3 (134-434); RBC 3.71 M/mm3 (3.60-5.2); RDW 12.9 % (11.6-15.6); WHITE BLOOD COUNT 5.5 K/mm3 (4.0-10.8)
[2017-09-13 09:09] LABS: ANION GAP 7 (8-16); BLOOD UREA NITROGEN 9 mg/dl (7-18); CALCIUM 9.6 mg/dl (8.4-10.2); CHLORIDE 101 mmol/L (98-107); CO2 25 mmol/L (22-28); GLUCOSE,RANDOM 106 mg/dl (74-106); MAGNESIUM 1.5 mg/dL (1.8-2.4); PHOSPHOROUS 2.2 mg/dl (2.5-4.6); POTASSIUM 3.6 mmol/L (3.5-5.1); SODIUM 133 mmol/L (136-145)
[2017-09-13 09:25] LABS: CREATININE < 0.8 mg/dl (0.6-1.3)
[2017-09-13] MEDS ORDERED: MAGNESIUM SULFATE 2 GM in SODIUM CHLORIDE 100 ML IVPB ONE (09:34)
[2017-09-13] MEDS ORDERED: MAGNESIUM SULFATE IN WATER 2 GM/50 ML IVPB IVPB ONE (09:45)
[2017-09-13] MEDS ORDERED: POTASSIUM PHOSPHATE 15 MM in SODIUM CHLORIDE 250 ML IVPB ONE (10:00)
[2017-09-13] MEDS ORDERED: PT OWN MED DRAWER 7, Y5N ONE ×2 (10:03→21:04)
[2017-09-13] MEDS: CHOLECALCIFEROL (VITAMIN D3) 1,000 UNIT TABLET (FP) PO SCH (10:07)
[2017-09-13] MEDS: amLODIPine BESYLATE 2.5 MG TABLET (FP) PO SCH (10:07)
[2017-09-13] MEDS: PANTOPRAZOLE 20 MG TABLET (FP) PO SCH (10:08)
[2017-09-13] MEDS: METOPROLOL TARTRATE 50 MG TABLET (FP) PO SCH (10:08)
[2017-09-13] MEDS: PARoxetine HCL 20 MG TABLET (FP) PO SCH (10:08)
[2017-09-13] MEDS: BUDESONIDE/FORMETEROL FUMARATE 160/4.5 mcg INHALER IH SCH ×2 (10:09→21:26)
[2017-09-13] MEDS: guaiFENesin 200 MG/10 ML 10 ML UNIT-DOSE CUPS PO SCH ×4 (10:09→21:25)
--- NOTE | 2017-09-13 11:00 | PN ---
Progress Note (short form) - Note Progress Note: PULMONARY CONSULTATION DICTATED 09/13/17 IMP COPD EXACERBATION BRONCHIECTASIS H/O RML LOBECTOMY SECONDARY TO BRONCHIECTASIS HTN HLD PARATHYROID ADENOMA PLAN IV ANTIBIOTICS O2 INHALED BRONCHODILATORS MEDROL SPUTUM C+S CHEST PT DR CHAMBERS Problem List - Problems (1) HLD (hyperlipidemia) Code(s): E78.5 - HYPERLIPIDEMIA, UNSPECIFIED (2) Bronchiectasis Code(s): J47.9 - BRONCHIECTASIS, UNCOMPLICATED (3) COPD (chronic obstructive pulmonary disease) Code(s): J44.9 - CHRONIC OBSTRUCTIVE PULMONARY DISEASE, UNSPECIFIED (4) HTN (hypertension) Code(s): I10 - ESSENTIAL (PRIMARY) HYPERTENSION (5) Parathyroid adenoma Code(s): D35.1 - BENIGN NEOPLASM OF PARATHYROID GLAND
--- NOTE | 2017-09-13 11:23 | CONS ---
DATE OF CONSULTATION: 09/13/2017 REFERRING PHYSICIAN: Ling Novoa NP HISTORY OF PRESENT ILLNESS: The patient is a 76-year-old white female known to me from previous hospitalization. Past medical history of hypertension, hyperlipidemia, anxiety, depression, history of right middle lobe lobectomy secondary to bronchiectasis, history of tobacco use years ago, recently hospitalized at [facility] secondary to pneumonia and hemoptysis. Was treated with antibiotics and steroids with good clinical response. Patient states for the past couple of days or so she started noticing increasing shortness of breath, cough and chest congestion. She also states that she had a fever and some chills. She apparently was placed on antibiotics for the above. Despite these measures, she presented to the emergency room with the above complaint. In the ER, she was placed on antibiotic therapy and supplemental O2, admitted for further management. Patient denies any nausea, vomiting or diaphoresis. Denies any hemoptysis at this time. She denies any recent travel. There is no history of DVT or PE in the past. PAST MEDICAL HISTORY: Again includes ASHD, history of bronchiectasis, status post middle lobe lobectomy, hypertension, hyperlipidemia, right knee arthroscopy, cataracts and left shoulder arthroscopy, parathyroid adenoma scheduled for surgery in October. SOCIAL HISTORY: No occupational exposures. History of smoking, quit 20 to 25 years ago. REVIEW OF SYSTEMS: Positive cough. Positive . Positive fever. Positive chills. No chest pain. No palpitations. No nausea. No vomiting. No abdominal pain. No lower extremity edema. CURRENT MEDICATIONS: Include Levaquin, Symbicort, Duo-Neb, Lopressor, Norvasc, Robitussin, Lipitor, Protonix and vitamin D3. PHYSICAL EXAMINATION:General: The patient is an elderly white female, wide awake, alert, in no acute distress. Vital Signs: She is afebrile, blood pressure 166/72, respiratory rate is 18, O2 saturation is 95% on 2 L. HEENT: Normocephalic, atraumatic. Neck: Supple. Heart: Regular with S1, S2. Chest: Bilateral rhonchi. Abdomen: Soft. Bowel sounds positive. Extremities: No cyanosis, edema. LABORATORIES: WBC is 5.5, hemoglobin 10, hematocrit 30.3, with a platelet count of 211,000. Chemistries: BUN 9, creatinine less than 8.8. Chest x-ray: No acute infiltrates or effusions. IMPRESSION: 1. Chronic obstructive pulmonary disease exacerbation. 2. Chronic bronchiectasis exacerbation secondary to upper respiratory infection. 3. Atherosclerotic heart disease. 4. History of parathyroid adenoma. 5. Hypertension. 6. Hyperlipidemia. PLAN: IV antibiotics. Inhaled bronchodilator. Supplemental O2. Sputum for C & S. 24 to 48 hours. Also chest PT. Thank you. TORRIE CHAMBERS M.D. [id number]
--- NOTE | 2017-09-13 11:44 | PN ---
Physical Exam: SUBJECTIVE: Patient seen and examined, patient reports ongoing cough, tolerating breakfast, denies any chest pain or shortness of breath. OBJECTIVE: Patient is a 76 y/o female with a past medical history of HTN, HLD, CAD, bronchiectasis, COPD, anxiety/depression, parathyroid adenoma (scheduled for removal in October 2017). patient was admitted from the emergency for copd excerbation Vital Signs Period Temp Pulse Resp BP Sys/García Pulse Ox Last 24 Hr 97.9 F-98.5 F 71-101 18-20 141-166/66-86 93-96 GENERAL: The patient is awake, alert, and fully oriented, in no acute distress. HEAD: Normal with no signs of trauma. EYES: PERRL, extraocular movements intact, sclera anicteric, conjunctiva clear. No ptosis. ENT: Ears normal, nares patent, oropharynx clear without exudates, moist mucous membranes. NECK: Trachea midline, full range of motion, supple. LUNGS: Breath sounds equal, course rhonchi to apexes, diminished to bases, no wheezes, no crackles, no accessory muscle use. HEART: Regular rate and rhythm, S1, S2 without murmur, rub or gallop. ABDOMEN: Soft, nontender, nondistended, normoactive bowel sounds, no guarding, no rebound, no hepatosplenomegaly, no masses. EXTREMITIES: 2+ pulses, warm, well-perfused, no edema. NEUROLOGICAL: Cranial nerves II through XII grossly intact. Normal speech, gait not observed. PSYCH: Normal mood, normal affect. SKIN: Warm, dry, normal turgor, no rashes or lesions noted Laboratory Results - last 24 hr 09/12/17 09/12/17 09/12/17 21:10 21:10 21:10 WBC 6.8 RBC 4.19 Hgb 11.4 Hct 34.1 MCV 81.4 MCH 27.1 MCHC 33.3 RDW 12.7 Plt Count 234 MPV 8.5 Neutrophils % 82.5 Lymphocytes % 8.9 Monocytes % 7.9 Eosinophils % 0.1 Basophils % 0.6 Sodium 132 L Potassium 2.9 L* D Chloride 96 L Carbon Dioxide 27 Anion Gap 9 BUN 10 Creatinine 0.8 Creat Clearance w eGFR > 60 Random Glucose 160 H D Calcium 10.0 Phosphorus Magnesium Total Bilirubin 0.5 AST 28 D ALT 12 Alkaline Phosphatase 96 H D Creatine Kinase Troponin I < 0.03 Total Protein 7.0 Albumin 3.5 Lipase 73 09/12/17 09/13/17 09/13/17 21:10 01:16 07:35 WBC 5.5 RBC 3.71 Hgb 10.0 L D Hct 30.3 L MCV 81.8 MCH 27.0 MCHC 33.0 RDW 12.9 Plt Count 211 MPV 8.9 Neutrophils % 66.5 Lymphocytes % 17.8 Monocytes % 15.2 H Eosinophils % 0.2 Basophils % 0.3 Sodium 137 Potassium 3.7 Chloride 100 Carbon Dioxide 26 Anion Gap 11 BUN 8 Creatinine 0.7 Creat Clearance w eGFR Random Glucose 118 H Calcium 9.6 Phosphorus Magnesium 1.8 Total Bilirubin AST ALT Alkaline Phosphatase Creatine Kinase 55 Troponin I Total Protein Albumin Lipase 09/13/17 07:35 WBC RBC Hgb Hct MCV MCH MCHC RDW Plt Count MPV Neutrophils % Lymphocytes % Monocytes % Eosinophils % Basophils % Sodium 133 L Potassium 3.6 D Chloride 101 Carbon Dioxide 25 Anion Gap 7 L BUN 9 Creatinine < 0.8 Creat Clearance w eGFR Random Glucose 106 D Calcium 9.6 Phosphorus 2.2 L D Magnesium 1.5 L Total Bilirubin AST ALT Alkaline Phosphatase Creatine Kinase Troponin I Total Protein Albumin Lipase Active Medications Generic Name Dose Route Start Last Admin Trade Name Freq PRN Reason Stop Dose Admin Albuterol/Ipratropium 1 amp 09/13/17 08:00 09/13/17 08:30 Duoneb - NEB 1 amp RQID DARIAN Administration Amlodipine Besylate 2.5 mg 09/13/17 10:00 09/13/17 10:07 Norvasc - PO 2.5 mg DAILY DARIAN Administration Atorvastatin Calcium 10 mg 09/13/17 22:00 Lipitor - PO HS DARIAN Budesonide/Formoterol Fumarate 1 puff 09/13/17 10:00 09/13/17 10:09 Symbicort 160/4.5mcg - IH 1 puff BID DARIAN Administration Cholecalciferol 5,000 unit 09/13/17 10:00 09/13/17 10:07 Vitamin D3 - PO 5,000 unit DAILY DARIAN Administration Guaifenesin 10 ml 09/13/17 10:00 09/13/17 10:09 Robitussin - PO 10 ml QID DARIAN Administration Potassium Phosphate 15 mm/ 255 mls @ 62.5 mls/hr 09/13/17 10:00 09/13/17 10: 07 Sodium Chloride IVPB 09/13/17 14:04 62.5 mls/hr ONCE ONE Administration Levofloxacin 500 mg 09/13/17 10:00 09/13/17 10:08 Levaquin - PO 09/18/17 10:01 500 mg DAILY DARIAN Administration Methylprednisolone Sodium Succinate 40 mg 09/13/17 11:15 Solu-Medrol - IVPUSH Q8H-IV DARIAN Metoprolol Tartrate 50 mg 09/13/17 10:00 09/13/17 10:08 Lopressor - PO 50 mg DAILY DARIAN Administration Pantoprazole Sodium 20 mg 09/13/17 10:00 09/13/17 10:08 Protonix - PO 20 mg DAILY DARIAN Administration Paroxetine HCl 40 mg 09/13/17 10:00 09/13/17 10:08 Paxil - PO 40 mg DAILY DARIAN Administration IMAGING chest xray: no acute pathology ASSESSMENT/PLAN: 1) pulm COPD exacerbation - continue duonebs qid, start solumedrol 40mg tid with taper as appropriate - continue symbicort (ellipta) and empric levaquin - pulmonary, Dr Farias consulted and following 2) cardiovascular hypertension - continue metoprolol and norvasc, b/p at goal hyperlipidemia - continue lipitor 3) psych anxiety/depression - cont paxil, and xanax at night DVT PPX - lovenox - protonix - pt eval FEN - low sodium diet - replete potassium/phos-->kphos gtt ordered Dispo: Pt currently requires further monitoring/observation for management of her emergent condition. Visit type - Emergency Visit Emergency Visit: Yes ED Registration Date: 09/15/17 Care time: The patient presented to the Emergency Department on the above date and was hospitalized for further evaluation of their emergent condition. - New Patient This patient is new to me today: No - Critical Care Critical Care patient: No - Discharge Referral Referred to [facility] No
[2017-09-13] MEDS: methylPREDNISolone NA SUCC 40 MG/1 ML VIAL IVPUSH SCH ×2 (12:42→17:50)
[2017-09-13] MEDS ORDERED: ONDANSETRON *ODT* 4 MG TABLET SL PRN (14:17)
[2017-09-13] MEDS: ENOXAPARIN NA (PORCINE) 40 MG/0.4 ML DISP.SYRIN SQ SCH (14:25)
--- NOTE | 2017-09-13 15:08 | EKG ---
Test Reason : Blood Pressure : / mmHG Vent. Rate : 084 BPM Atrial Rate : 084 BPM P-R Int : 166 ms QRS Dur : 090 ms QT Int : 382 ms P-R-T Axes : 057 040 074 degrees QTc Int : 451 ms NORMAL SINUS RHYTHM NONSPECIFIC ST AND T WAVE ABNORMALITY ABNORMAL ECG WHEN COMPARED WITH ECG OF 27-JUL-2017 17:43, PREMATURE VENTRICULAR COMPLEXES ARE NO LONGER PRESENT Confirmed by MELVIN LEZAMA, KIMBERLEE ([id number]) on 09/13/2017 3:08:11 PM Referred By: DR REAL Confirmed By:KIMBERLEE CHARLES MD
[2017-09-13] MEDS: ATORVASTATIN CA 10 MG TABLET (FP) PO SCH (21:27)
[2017-09-14] MEDS: methylPREDNISolone NA SUCC 40 MG/1 ML VIAL IVPUSH SCH ×3 (02:28→17:44)
[2017-09-14] MEDS: ALPRAZolam 0.25 MG TABLET PO PRN (02:28)
[2017-09-14 07:43] LABS: BASO % 0.1 % (0-2.0); HEMATOCRIT 31.3 % (32.4-45.2); HEMOGLOBIN 10.5 GM/dl (10.7-15.3); LYMPH % 12.4 % (8-40); MCH 27.6 pg (25.7-33.7); MCHC 33.5 g/dl (32.0-36.0); MEAN CELL VOLUME 82.5 fl (80-96); MEAN PLT VOLUME 8.4 fl (7.5-11.1); MONO % 3.9 % (3.8-10.2); NEUT % 83.6 % (42.8-82.8); PLATELET COUNT 228 K/MM3 (134-434); RDW 12.8 % (11.6-15.6); WHITE BLOOD COUNT 5.8 K/mm3 (4.0-10.8)
[2017-09-14 08:09] LABS: ANION GAP 3 (8-16); BLOOD UREA NITROGEN 12 mg/dl (7-18); CALCIUM 9.9 mg/dl (8.4-10.2); CHLORIDE 104 mmol/L (98-107); CO2 27 mmol/L (22-28); CREATININE 0.7 mg/dl (0.6-1.3); GLUCOSE,RANDOM 158 mg/dl (74-106); MAGNESIUM 2.1 mg/dL (1.8-2.4); PHOSPHOROUS 2.3 mg/dl (2.5-4.6); POTASSIUM 3.6 mmol/L (3.5-5.1); SODIUM 134 mmol/L (136-145)
[2017-09-14] MEDS ORDERED: PT OWN MED DRAWER 7, Y5N ONE (10:39)
[2017-09-14] MEDS: ALBUTEROL SO4 2.5/IPRATROPIUM 0.5 INH SOL 3 ML VIAL.NEB. NEB SCH ×4 (10:51→21:15)
[2017-09-14] MEDS: CHOLECALCIFEROL (VITAMIN D3) 1,000 UNIT TABLET (FP) PO SCH (10:52)
[2017-09-14] MEDS: BUDESONIDE/FORMETEROL FUMARATE 160/4.5 mcg INHALER IH SCH ×2 (10:54→21:16)
[2017-09-14] MEDS: PARoxetine HCL 20 MG TABLET (FP) PO SCH (10:55)
[2017-09-14] MEDS: PANTOPRAZOLE 20 MG TABLET (FP) PO SCH (10:55)
[2017-09-14] MEDS: METOPROLOL TARTRATE 50 MG TABLET (FP) PO SCH (10:55)
[2017-09-14] MEDS: amLODIPine BESYLATE 2.5 MG TABLET (FP) PO SCH (10:55)
[2017-09-14] MEDS: ENOXAPARIN NA (PORCINE) 40 MG/0.4 ML DISP.SYRIN SQ SCH (10:56)
[2017-09-14] MEDS: guaiFENesin 200 MG/10 ML 10 ML UNIT-DOSE CUPS PO SCH ×4 (10:56→21:15)
--- NOTE | 2017-09-14 11:44 | PN ---
Physical Exam: SUBJECTIVE: Patient seen and examined oob to chair. OBJECTIVE: Vital Signs Period Temp Pulse Resp BP Sys/García Pulse Ox Last 24 Hr 97.8 F-98.5 F 70-93 18-20 132-173/62-82 92-98 GENERAL: A&Ox2. Speech is fluent but disconnected, rambling thoughts. LUNGS: Scattered wheezes HEART: Regular rate and rhythm, S1, S2 ABDOMEN: Soft, nontender, nondistended EXTREMITIES: 2+ pulses, warm, well-perfused, no edema. NEUROLOGICAL: Cranial nerves II through XII grossly intact. Normal speech, gait not observed. Laboratory Results - last 24 hr 09/14/17 09/14/17 07:25 07:25 WBC 5.8 RBC 3.80 Hgb 10.5 L Hct 31.3 L MCV 82.5 MCH 27.6 MCHC 33.5 RDW 12.8 Plt Count 228 MPV 8.4 Neutrophils % 83.6 H Lymphocytes % 12.4 Monocytes % 3.9 Eosinophils % 0.0 Basophils % 0.1 Sodium 134 L Potassium 3.6 Chloride 104 Carbon Dioxide 27 Anion Gap 3 L BUN 12 D Creatinine 0.7 Random Glucose 158 H D Calcium 9.9 Phosphorus 2.3 L Magnesium 2.1 Active Medications Generic Name Dose Route Start Last Admin Trade Name Freq PRN Reason Stop Dose Admin Albuterol/Ipratropium 1 amp 09/13/17 08:00 09/14/17 10:51 Duoneb - NEB 1 amp RQID DARIAN Administration Alprazolam 0.25 mg 09/13/17 12:19 09/14/17 02:28 Xanax - PO 0.25 mg HS PRN Administration ANXIETY Amlodipine Besylate 2.5 mg 09/13/17 10:00 09/14/17 10:55 Norvasc - PO 2.5 mg DAILY DARIAN Administration Atorvastatin Calcium 10 mg 09/13/17 22:00 09/13/17 21:27 Lipitor - PO 10 mg HS DARIAN Administration Budesonide/Formoterol Fumarate 1 puff 09/13/17 10:00 09/14/17 10:54 Symbicort 160/4.5mcg - IH 1 puff BID DARIAN Administration Cholecalciferol 5,000 unit 09/13/17 10:00 09/14/17 10:52 Vitamin D3 - PO 5,000 unit DAILY DARIAN Administration Enoxaparin Sodium 40 mg 09/13/17 14:15 09/14/17 10:56 Lovenox - SQ 40 mg DAILY DARIAN Administration Guaifenesin 10 ml 09/13/17 10:00 09/14/17 10:56 Robitussin - PO 10 ml QID DARIAN Administration Levofloxacin 500 mg 09/13/17 10:00 09/14/17 10:52 Levaquin - PO 09/18/17 10:01 500 mg DAILY DARIAN Administration Methylprednisolone Sodium Succinate 40 mg 09/13/17 12:00 09/14/17 10:55 Solu-Medrol - IVPUSH 40 mg Q8H-IV DARIAN Administration Metoprolol Tartrate 50 mg 09/13/17 10:00 09/14/17 10:55 Lopressor - PO 50 mg DAILY DARIAN Administration Ondansetron HCl 4 mg 09/13/17 14:17 09/13/17 14:22 Zofran Odt - SL 4 mg Q8H PRN Administration NAUSEA AND/OR VOMITING Pantoprazole Sodium 20 mg 09/13/17 10:00 09/14/17 10:55 Protonix - PO 20 mg DAILY DARIAN Administration Paroxetine HCl 40 mg 09/13/17 10:00 09/14/17 10:55 Paxil - PO 40 mg DAILY DARIAN Administration ASSESSMENT/PLAN: 76 year-old female with a PMH significant for HTN, HLD, CAD, COPD, chronic bronchiectasis s/p right middle lung lobectomy (1998), hypercalcemia, parathyroid adenoma, anxiety and depression. COPD exacerbation Bronchiectasis, chronic, extensive --no fever, no leukocytosis --continue levofloxacin, solumedrol, duonebs, inhalers Hypertension --continue metoprolol, amlodipine Hyperlipidemia --continue Lipitor Coronary artery disease --continue metoprolol, amlodipine, Lipitor Hypercalcemia Parathyroid adenoma --being followed by Dr. Hall at [place]; has appt with surgeon in October Anxiety/Depression --continue Paxil, alprazolam FEN Fluids: PO intake adequate Electrolytes: replete as indicated Nutrition: low sodium DVT prophylaxis: lovenox, oob, ambulation Physical therapy Dispo: continues to require observation. Visit type - Emergency Visit Emergency Visit: Yes ED Registration Date: 09/15/17 Care time: The patient presented to the Emergency Department on the above date and was hospitalized for further evaluation of their emergent condition. - New Patient This patient is new to me today: Yes Date on this admission: 09/16/17 - Critical Care Critical Care patient: No
--- NOTE | 2017-09-14 16:08 | PN ---
Progress Note (short form) - Note Progress Note: OOB to chair off O2. Feels a little better today. Some dry cough and wheezing persists. No CP. No hemoptysis. Remains afebrile. Intake & Output 09/11/17 09/12/17 09/13/17 09/14/17 23:59 23:59 23:59 23:59 Intake Total 1200 1000 250 Balance 1200 1000 250 Weight 132 lb Last Vital Signs Temp Pulse Resp BP Pulse Ox 98.8 F 70 18 131/62 91 L 09/14/17 14:00 09/14/17 14:00 09/14/17 14:00 09/14/17 14:00 09/14/17 14:00 Active Medications Albuterol/Ipratropium (Duoneb -) 1 amp NEB RQID [facility] Last Admin: 09/14/17 13:53 Dose: 1 amp Alprazolam (Xanax -) 0.25 mg PO HS PRN PRN Reason: ANXIETY Last Admin: 09/14/17 02:28 Dose: 0.25 mg Amlodipine Besylate (Norvasc -) 2.5 mg PO DAILY [facility] Last Admin: 09/14/17 10:55 Dose: 2.5 mg Atorvastatin Calcium (Lipitor -) 10 mg PO HS [facility] Last Admin: 09/13/17 21:27 Dose: 10 mg Budesonide/Formoterol Fumarate (Symbicort 160/4.5mcg -) 1 puff IH BID [facility] Last Admin: 09/14/17 10:54 Dose: 1 puff Cholecalciferol (Vitamin D3 -) 5,000 unit PO DAILY [facility] Last Admin: 09/14/17 10:52 Dose: 5,000 unit Enoxaparin Sodium (Lovenox -) 40 mg SQ DAILY [facility] Last Admin: 09/14/17 10:56 Dose: 40 mg Guaifenesin (Robitussin -) 10 ml PO QID [facility] Last Admin: 09/14/17 13:53 Dose: 10 ml Levofloxacin (Levaquin -) 500 mg PO DAILY [facility] Stop: 09/18/17 10:01 Last Admin: 09/14/17 10:52 Dose: 500 mg Methylprednisolone Sodium Succinate (Solu-Medrol -) 40 mg IVPUSH Q8H-IV [facility] Last Admin: 09/14/17 10:55 Dose: 40 mg Metoprolol Tartrate (Lopressor -) 50 mg PO DAILY [facility] Last Admin: 09/14/17 10:55 Dose: 50 mg Ondansetron HCl (Zofran Odt -) 4 mg SL Q8H PRN PRN Reason: NAUSEA AND/OR VOMITING Last Admin: 09/13/17 14:22 Dose: 4 mg Pantoprazole Sodium (Protonix -) 20 mg PO DAILY [facility] Last Admin: 09/14/17 10:55 Dose: 20 mg Paroxetine HCl (Paxil -) 40 mg PO DAILY [facility] Last Admin: 09/14/17 10:55 Dose: 40 mg Sucralfate (Carafate Oral Suspension -) 1 gm PO BID [facility] GENERAL: Awake, alert, oriented, in no acute distress. HEAD: Normal with no signs of trauma. EYES: sclera anicteric, conjunctiva clear. No ptosis. ENT: Ears normal, nares patent, oropharynx clear without exudates, moist mucous membranes. NECK: Trachea midline, full range of motion, supple. LUNGS: Scattered bilateral rhonchi and expiratory wheezing; no accessory muscle use. HEART: Regular rate and rhythm, S1, S2 without murmur, rub or gallop. ABDOMEN: Soft, nontender, nondistended, normoactive bowel sounds, no guarding, no rebound, no hepatosplenomegaly, no masses. EXTREMITIES: 2+ pulses, warm, well-perfused, no edema. NEUROLOGICAL: non-focal PSYCH: Normal mood, normal affect. SKIN: Warm, dry, normal turgor, no rashes or lesions noted Laboratory Results - last 24 hr 09/14/17 09/14/17 07:25 07:25 WBC 5.8 RBC 3.80 Hgb 10.5 L Hct 31.3 L MCV 82.5 MCH 27.6 MCHC 33.5 RDW 12.8 Plt Count 228 MPV 8.4 Neutrophils % 83.6 H Lymphocytes % 12.4 Monocytes % 3.9 Eosinophils % 0.0 Basophils % 0.1 Sodium 134 L Potassium 3.6 Chloride 104 Carbon Dioxide 27 Anion Gap 3 L BUN 12 D Creatinine 0.7 Random Glucose 158 H D Calcium 9.9 Phosphorus 2.3 L Magnesium 2.1 Problem List - Problems (1) HLD (hyperlipidemia) Code(s): E78.5 - HYPERLIPIDEMIA, UNSPECIFIED (2) Bronchiectasis Code(s): J47.9 - BRONCHIECTASIS, UNCOMPLICATED (3) COPD (chronic obstructive pulmonary disease) Code(s): J44.9 - CHRONIC OBSTRUCTIVE PULMONARY DISEASE, UNSPECIFIED (4) HTN (hypertension) Code(s): I10 - ESSENTIAL (PRIMARY) HYPERTENSION (5) Parathyroid adenoma Code(s): D35.1 - BENIGN NEOPLASM OF PARATHYROID GLAND IMP COPD EXACERBATION BRONCHIECTASIS H/O RML LOBECTOMY SECONDARY TO BRONCHIECTASIS ABOUT 20 YEARS AGO HTN HLD PARATHYROID ADENOMA PLAN IV ANTIBIOTICS O2 INHALED BRONCHODILATORS CONTINUE MEDROL FOLLOW SPUTUM C+S CHEST PT DR BLACKBURN
[2017-09-14] MEDS: SUCRALFATE 1 GM/10 ML UNIT DOSE CUPS PO SCH (21:14)
[2017-09-14] MEDS: ATORVASTATIN CA 10 MG TABLET (FP) PO SCH (21:14)
[2017-09-15] MEDS: methylPREDNISolone NA SUCC 40 MG/1 ML VIAL IVPUSH SCH ×3 (01:26→17:14)
[2017-09-15] MEDS: ALBUTEROL SO4 2.5/IPRATROPIUM 0.5 INH SOL 3 ML VIAL.NEB. NEB SCH ×4 (10:05→20:22)
[2017-09-15] MEDS: SUCRALFATE 1 GM/10 ML UNIT DOSE CUPS PO SCH ×2 (10:05→21:21)
[2017-09-15] MEDS: amLODIPine BESYLATE 2.5 MG TABLET (FP) PO SCH (10:06)
[2017-09-15] MEDS: PANTOPRAZOLE 20 MG TABLET (FP) PO SCH (10:06)
[2017-09-15] MEDS: METOPROLOL TARTRATE 50 MG TABLET (FP) PO SCH (10:06)
[2017-09-15] MEDS: PARoxetine HCL 20 MG TABLET (FP) PO SCH (10:06)
[2017-09-15] MEDS: ENOXAPARIN NA (PORCINE) 40 MG/0.4 ML DISP.SYRIN SQ SCH (10:06)
[2017-09-15] MEDS: CHOLECALCIFEROL (VITAMIN D3) 1,000 UNIT TABLET (FP) PO SCH (10:07)
[2017-09-15] MEDS: BUDESONIDE/FORMETEROL FUMARATE 160/4.5 mcg INHALER IH SCH ×2 (10:07→21:22)
[2017-09-15] MEDS: guaiFENesin 200 MG/10 ML 10 ML UNIT-DOSE CUPS PO SCH ×4 (10:07→21:21)
--- NOTE | 2017-09-15 11:53 | PN ---
Physical Exam: SUBJECTIVE: Patient seen and examined oob to chair. OBJECTIVE: Vital Signs Period Temp Pulse Resp BP Sys/García Pulse Ox Last 24 Hr 97.7 F-99.0 F 62-84 18-20 123-133/57-68 91-98 GENERAL: A&Ox2. Speech is fluent but disconnected, rambling thoughts. LUNGS: Diffuse fine rales HEART: Regular rate and rhythm, S1, S2 ABDOMEN: Soft, nontender, nondistended EXTREMITIES: 2+ pulses, warm, well-perfused, no edema. NEUROLOGICAL: Cranial nerves II through XII grossly intact. Normal speech, gait not observed. CBCD WBC 5.8 K/mm3 (4.0-10.8) 09/14/17 07:25 RBC 3.80 M/mm3 (3.60-5.2) 09/14/17 07:25 Hgb 10.5 GM/dl (10.7-15.3) L 09/14/17 07:25 Hct 31.3 % (32.4-45.2) L 09/14/17 07:25 MCV 82.5 fl (80-96) 09/14/17 07:25 MCHC 33.5 g/dl (32.0-36.0) 09/14/17 07:25 RDW 12.8 % (11.6-15.6) 09/14/17 07:25 Plt Count 228 K/MM3 (134-434) 09/14/17 07:25 MPV 8.4 fl (7.5-11.1) 09/14/17 07:25 CMP Sodium 134 mmol/L (136-145) L 09/14/17 07:25 Potassium 3.6 mmol/L (3.5-5.1) 09/14/17 07:25 Chloride 104 mmol/L (98-107) 09/14/17 07:25 Carbon Dioxide 27 mmol/L (22-28) 09/14/17 07:25 Anion Gap 3 (8-16) L 09/14/17 07:25 BUN 12 mg/dl (7-18) D 09/14/17 07:25 Creatinine 0.7 mg/dl (0.6-1.3) 09/14/17 07:25 Creat Clearance w eGFR > 60 (>60) 03/15/18 21:10 Calcium 9.9 mg/dl (8.4-10.2) 09/14/17 07:25 Total Bilirubin 0.5 mg/dl (0.2-1.0) 09/12/17 21:10 AST 28 U/L (10-42) D 09/12/17 21:10 ALT 12 U/L (10-40) 09/12/17 21:10 Alkaline Phosphatase 96 U/L (32-92) H D 09/12/17 21:10 Total Protein 7.0 g/dl (6.4-8.3) 09/12/17 21:10 Albumin 3.5 g/dl (3.5-5.0) 09/12/17 21:10 Active Medications Generic Name Dose Route Start Last Admin Trade Name Freq PRN Reason Stop Dose Admin Albuterol/Ipratropium 1 amp 09/13/17 08:00 09/15/17 10:05 Duoneb - NEB 1 amp RQID DARIAN Administration Alprazolam 0.25 mg 09/13/17 12:19 09/14/17 02:28 Xanax - PO 0.25 mg HS PRN Administration ANXIETY Amlodipine Besylate 2.5 mg 09/13/17 10:00 09/15/17 10:06 Norvasc - PO 2.5 mg DAILY DARIAN Administration Atorvastatin Calcium 10 mg 09/13/17 22:00 09/14/17 21:14 Lipitor - PO 10 mg HS DARIAN Administration Budesonide/Formoterol Fumarate 1 puff 09/13/17 10:00 09/15/17 10:07 Symbicort 160/4.5mcg - IH 1 puff BID DARIAN Administration Cholecalciferol 5,000 unit 09/13/17 10:00 09/15/17 10:07 Vitamin D3 - PO 5,000 unit DAILY DARIAN Administration Enoxaparin Sodium 40 mg 09/13/17 14:15 09/15/17 10:06 Lovenox - SQ 40 mg DAILY DARIAN Administration Guaifenesin 10 ml 09/13/17 10:00 09/15/17 10:07 Robitussin - PO 10 ml QID DARIAN Administration Levofloxacin 500 mg 09/13/17 10:00 09/15/17 10:06 Levaquin - PO 09/18/17 10:01 500 mg DAILY DARIAN Administration Methylprednisolone Sodium Succinate 40 mg 09/13/17 12:00 09/15/17 10:07 Solu-Medrol - IVPUSH 40 mg Q8H-IV DARIAN Administration Metoprolol Tartrate 50 mg 09/13/17 10:00 09/15/17 10:06 Lopressor - PO 50 mg DAILY DARIAN Administration Ondansetron HCl 4 mg 09/13/17 14:17 09/13/17 14:22 Zofran Odt - SL 4 mg Q8H PRN Administration NAUSEA AND/OR VOMITING Pantoprazole Sodium 20 mg 09/13/17 10:00 09/15/17 10:06 Protonix - PO 20 mg DAILY DARIAN Administration Paroxetine HCl 40 mg 09/13/17 10:00 09/15/17 10:06 Paxil - PO 40 mg DAILY DARIAN Administration Sucralfate 1 gm 09/14/17 22:00 09/15/17 10:05 Carafate Oral Suspension - PO 1 gm BID DARIAN Administration ASSESSMENT/PLAN: 76 year-old female with a PMH significant for HTN, HLD, CAD, COPD, chronic bronchiectasis s/p right middle lung lobectomy (1998), hypercalcemia, parathyroid adenoma, anxiety and depression. COPD exacerbation Bronchiectasis, chronic, extensive --no fever, no leukocytosis --continue levofloxacin, solumedrol, duonebs, inhalers Hypertension --continue metoprolol, amlodipine Hyperlipidemia --continue Lipitor Coronary artery disease --continue metoprolol, amlodipine, Lipitor Hypercalcemia Parathyroid adenoma --being followed by Dr. Hall at [place]; has appt with surgeon in October Anxiety/Depression --continue Paxil, alprazolam FEN Fluids: PO intake adequate Electrolytes: replete as indicated Nutrition: low sodium DVT prophylaxis: lovenox, oob, ambulation Physical therapy Dispo: continues to require observation. Visit type - Emergency Visit Emergency Visit: Yes ED Registration Date: 09/15/17 Care time: The patient presented to the Emergency Department on the above date and was hospitalized for further evaluation of their emergent condition. - New Patient This patient is new to me today: No - Critical Care Critical Care patient: No
[2017-09-15] MEDS ORDERED: PT OWN MED DRAWER 7, Y5N ONE (21:15)
[2017-09-15] MEDS: ATORVASTATIN CA 10 MG TABLET (FP) PO SCH (21:21)
[2017-09-16] MEDS: methylPREDNISolone NA SUCC 40 MG/1 ML VIAL IVPUSH SCH ×3 (01:08→17:40)
[2017-09-16] MEDS ORDERED: PT OWN MED DRAWER 7, Y5N ONE ×3 (07:20→22:00)
[2017-09-16] MEDS: ALBUTEROL SO4 2.5/IPRATROPIUM 0.5 INH SOL 3 ML VIAL.NEB. NEB SCH ×4 (09:00→22:31)
[2017-09-16] MEDS: SUCRALFATE 1 GM/10 ML UNIT DOSE CUPS PO SCH ×2 (09:29→22:31)
[2017-09-16] MEDS: guaiFENesin 200 MG/10 ML 10 ML UNIT-DOSE CUPS PO SCH ×4 (09:30→22:31)
[2017-09-16] MEDS: ENOXAPARIN NA (PORCINE) 40 MG/0.4 ML DISP.SYRIN SQ SCH (09:32)
[2017-09-16] MEDS: amLODIPine BESYLATE 2.5 MG TABLET (FP) PO SCH (09:33)
[2017-09-16] MEDS: PANTOPRAZOLE 20 MG TABLET (FP) PO SCH (09:33)
[2017-09-16] MEDS: PARoxetine HCL 20 MG TABLET (FP) PO SCH (09:33)
[2017-09-16] MEDS: METOPROLOL TARTRATE 50 MG TABLET (FP) PO SCH (09:33)
[2017-09-16] MEDS: CHOLECALCIFEROL (VITAMIN D3) 1,000 UNIT TABLET (FP) PO SCH (09:34)
[2017-09-16] MEDS: BUDESONIDE/FORMETEROL FUMARATE 160/4.5 mcg INHALER IH SCH ×2 (09:35→22:31)
[2017-09-16 10:45] LABS: ANION GAP 10 (8-16); BLOOD UREA NITROGEN 23 mg/dl (7-18); CALCIUM 10.4 mg/dl (8.4-10.2); CHLORIDE 99 mmol/L (98-107); CO2 24 mmol/L (22-28); CREATININE 0.9 mg/dl (0.6-1.3); GLUCOSE,RANDOM 198 mg/dl (74-106); MAGNESIUM 1.9 mg/dL (1.8-2.4); PHOSPHOROUS 2.8 mg/dl (2.5-4.6); SODIUM 133 mmol/L (136-145)
[2017-09-16 11:06] LABS: POTASSIUM 2.9 mmol/L (3.5-5.1)
[2017-09-16] MEDS ORDERED: MAGNESIUM SULFATE 2 GM in SODIUM CHLORIDE 100 ML IVPB ONE (11:11)
[2017-09-16] MEDS ORDERED: MAGNESIUM SULFATE IN WATER 2 GM/50 ML IVPB IVPB ONE (11:30)
[2017-09-16] MEDS: KCL 10 MEQ IVPB 10 MEQ/100 ML INFUS.BAG IVPB SCH ×3 (11:37→15:51)
[2017-09-16] MEDS ORDERED: POTASSIUM CHLORIDE TABS 20 MEQ TABLET.ER (FP) PO ONE (11:45)
--- NOTE | 2017-09-16 12:10 | PN ---
Progress Note (short form) - Note Progress Note: PULMONARY FEELS WEAK RIGHT GREATER THAN LEFT VSS/AFEBRILE ANICTERIC/PALE SCATTERED CRACKLES CHRONIC S1S2 BS+ NO EDEMA LABS/MEDS/NOTES/MICRO/CT REVIEWED IMP COPD EXACERBATION BRONCHIECTASIS NICKILEY INFECTED H/O RML LOBECTOMY SECONDARY TO BRONCHIECTASIS HTN HLD PARATHYROID ADENOMA HYPOKALEMIA PLAN IV ANTIBIOTICS TO CONTINUE O2 INHALED BRONCHODILATORS MEDROL TAPERING CHEST PT REPLETE ESTELLA BASS MD
[2017-09-16 12:56] LABS: HEMATOCRIT 35.3 % (32.4-45.2); HEMOGLOBIN 11.7 GM/dl (10.7-15.3); MCH 27.6 pg (25.7-33.7); MCHC 33.1 g/dl (32.0-36.0); MEAN CELL VOLUME 83.4 fl (80-96); MONO % 3.5 % (3.8-10.2); NEUT % 87.5 % (42.8-82.8); PLATELET COUNT 313 K/MM3 (134-434); RBC 4.24 M/mm3 (3.60-5.2); RDW 13.6 % (11.6-15.6); WHITE BLOOD COUNT 9.8 K/mm3 (4.0-10.8)
--- NOTE | 2017-09-16 13:45 | PN ---
Physical Exam: SUBJECTIVE: Patient seen and examined, sitting in bedside chair, reports breathing is much improved. OBJECTIVE:76 year-old female with a PMH significant for HTN, HLD, CAD, COPD, chronic bronchiectasis s/p right middle lung lobectomy (1998), hypercalcemia, parathyroid adenoma, anxiety and depression. Vital Signs Period Temp Pulse Resp BP Sys/García Pulse Ox Last 24 Hr 97.9 F-98.7 F 60-80 18-20 144-156/62-69 92-98 GENERAL: The patient is awake, alert, and fully oriented, in no acute distress. HEAD: Normal with no signs of trauma. EYES: PERRL, extraocular movements intact, sclera anicteric, conjunctiva clear. No ptosis. ENT: Ears normal, nares patent, oropharynx clear without exudates, moist mucous membranes. NECK: Trachea midline, full range of motion, supple. LUNGS: Breath sounds equal, clear to auscultation bilaterally, no wheezes, no crackles, no accessory muscle use. HEART: Regular rate and rhythm, S1, S2 without murmur, rub or gallop. ABDOMEN: Soft, nontender, nondistended, normoactive bowel sounds, no guarding, no rebound, no hepatosplenomegaly, no masses. EXTREMITIES: 2+ pulses, warm, well-perfused, no edema. NEUROLOGICAL: Cranial nerves II through XII grossly intact. Normal speech, gait not observed. PSYCH: Normal mood, normal affect. SKIN: Warm, dry, normal turgor, no rashes or lesions noted Laboratory Results - last 24 hr 09/16/17 09/16/17 09:50 09:50 WBC 9.8 D RBC 4.24 Hgb 11.7 D Hct 35.3 MCV 83.4 MCH 27.6 MCHC 33.1 RDW 13.6 Plt Count 313 MPV 9.0 Neutrophils % 87.5 H Lymphocytes % 9.0 Monocytes % 3.5 L Eosinophils % 0.0 Basophils % 0.0 Sodium 133 L Potassium 2.9 L* Chloride 99 Carbon Dioxide 24 Anion Gap 10 BUN 23 H D Creatinine 0.9 D Random Glucose 198 H D Calcium 10.4 H Phosphorus 2.8 D Magnesium 1.9 Active Medications Generic Name Dose Route Start Last Admin Trade Name Freq PRN Reason Stop Dose Admin Albuterol/Ipratropium 1 amp 09/13/17 08:00 09/16/17 12:45 Duoneb - NEB 1 amp RQID DARIAN Administration Alprazolam 0.25 mg 09/13/17 12:19 09/14/17 02:28 Xanax - PO 0.25 mg HS PRN Administration ANXIETY Amlodipine Besylate 2.5 mg 09/13/17 10:00 09/16/17 09:33 Norvasc - PO 2.5 mg DAILY DARIAN Administration Atorvastatin Calcium 10 mg 09/13/17 22:00 09/15/17 21:21 Lipitor - PO 10 mg HS DARIAN Administration Budesonide/Formoterol Fumarate 1 puff 09/13/17 10:00 09/16/17 09:35 Symbicort 160/4.5mcg - IH 1 puff BID DARIAN Administration Cholecalciferol 5,000 unit 09/13/17 10:00 09/16/17 09:34 Vitamin D3 - PO 5,000 unit DAILY DARIAN Administration Enoxaparin Sodium 40 mg 09/13/17 14:15 09/16/17 09:32 Lovenox - SQ 40 mg DAILY DARIAN Administration Guaifenesin 10 ml 09/13/17 10:00 09/16/17 09:30 Robitussin - PO 10 ml QID DARIAN Administration Potassium Chloride 10 meq in 100 mls @ 100 mls/hr 09/16/17 12:00 09/16/17 11: 37 Potassium Chloride 10 Meq Premix Ivpb - IVPB 09/16/17 14:59 100 mls/hr Q60M DARIAN Administration Levofloxacin 500 mg 09/13/17 10:00 09/16/17 09:33 Levaquin - PO 09/18/17 10:01 500 mg DAILY DARIAN Administration Methylprednisolone Sodium Succinate 20 mg 09/16/17 18:00 Solu-Medrol - IVPUSH Q8H-IV DARIAN Metoprolol Tartrate 50 mg 09/13/17 10:00 09/16/17 09:33 Lopressor - PO 50 mg DAILY DARIAN Administration Ondansetron HCl 4 mg 09/13/17 14:17 09/13/17 14:22 Zofran Odt - SL 4 mg Q8H PRN Administration NAUSEA AND/OR VOMITING Pantoprazole Sodium 20 mg 09/13/17 10:00 09/16/17 09:33 Protonix - PO 20 mg DAILY DARIAN Administration Paroxetine HCl 40 mg 09/13/17 10:00 09/16/17 09:33 Paxil - PO 40 mg DAILY DARIAN Administration Sucralfate 1 gm 09/14/17 22:00 09/16/17 09:29 Carafate Oral Suspension - PO 1 gm BID DARIAN Administration IMAGING head ct: no acute pathology chest xray: no evidence of acute pulmonary disease ASSESSMENT/PLAN: 1) pulm COPD exacerbation Bronchiectasis, chronic, extensive - decrease solumedrol to 20mg tid - no fever, no leukocytosis noted - continue levofloxacin, solumedrol, duonebs, inhalers 2) cardiovascular Hypertension - continue metoprolol, amlodipine Hyperlipidemia -continue Lipitor Coronary artery disease -continue metoprolol, amlodipine, Lipitor 3) hypercalcemia Parathyroid adenoma - being followed by Dr. Hall at [place]; has appt with surgeon in October 4) psych Anxiety/Depression -continue Paxil, alprazolam FEN Fluids: PO intake adequate Electrolytes: hypokalemia, replete potassium, repeat bmp ordered for 1899 Nutrition: low sodium DVT prophylaxis: lovenox, oob, ambulation Physical therapy Dispo: continues to require admission Visit type - Emergency Visit Emergency Visit: Yes ED Registration Date: 09/15/17 Care time: The patient presented to the Emergency Department on the above date and was hospitalized for further evaluation of their emergent condition. - New Patient This patient is new to me today: No - Critical Care Critical Care patient: No - Discharge Referral Referred to [facility] No
[2017-09-16 18:34] LABS: ANION GAP 6 (8-16); BLOOD UREA NITROGEN 23 mg/dl (7-18); CALCIUM 10.2 mg/dl (8.4-10.2); CHLORIDE 100 mmol/L (98-107); CO2 25 mmol/L (22-28); CREATININE 0.8 mg/dl (0.6-1.3); GLUCOSE,RANDOM 143 mg/dl (74-106); POTASSIUM 4.1 mmol/L (3.5-5.1); SODIUM 131 mmol/L (136-145)
[2017-09-16] MEDS: ATORVASTATIN CA 10 MG TABLET (FP) PO SCH (22:31)
[2017-09-16] MEDS: ALPRAZolam 0.25 MG TABLET PO PRN (23:00)
[2017-09-17] MEDS: methylPREDNISolone NA SUCC 40 MG/1 ML VIAL IVPUSH SCH ×3 (02:00→17:34)
--- NOTE | 2017-09-17 07:02 | PN ---
Progress Note, Physician History of Present Illness: pulmonary alert,oob-chair,less congested - Current Medication List Current Medications: Active Medications Albuterol/Ipratropium (Duoneb -) 1 amp NEB RQID [facility] Last Admin: 09/16/17 22:31 Dose: 1 amp Alprazolam (Xanax -) 0.25 mg PO HS PRN PRN Reason: ANXIETY Last Admin: 09/16/17 23:00 Dose: 0.25 mg Amlodipine Besylate (Norvasc -) 2.5 mg PO DAILY [facility] Last Admin: 09/16/17 09:33 Dose: 2.5 mg Atorvastatin Calcium (Lipitor -) 10 mg PO HS [facility] Last Admin: 09/16/17 22:31 Dose: 10 mg Budesonide/Formoterol Fumarate (Symbicort 160/4.5mcg -) 1 puff IH BID [facility] Last Admin: 09/16/17 22:31 Dose: 1 puff Cholecalciferol (Vitamin D3 -) 5,000 unit PO DAILY [facility] Last Admin: 09/16/17 09:34 Dose: 5,000 unit Enoxaparin Sodium (Lovenox -) 40 mg SQ DAILY [facility] Last Admin: 09/16/17 09:32 Dose: 40 mg Guaifenesin (Robitussin -) 10 ml PO QID [facility] Last Admin: 09/16/17 22:31 Dose: 10 ml Levofloxacin (Levaquin -) 500 mg PO DAILY [facility] Stop: 09/18/17 10:01 Last Admin: 09/16/17 09:33 Dose: 500 mg Methylprednisolone Sodium Succinate (Solu-Medrol -) 20 mg IVPUSH Q8H-IV [facility] Last Admin: 09/17/17 02:00 Dose: 20 mg Metoprolol Tartrate (Lopressor -) 50 mg PO DAILY [facility] Last Admin: 09/16/17 09:33 Dose: 50 mg Ondansetron HCl (Zofran Odt -) 4 mg SL Q8H PRN PRN Reason: NAUSEA AND/OR VOMITING Last Admin: 09/13/17 14:22 Dose: 4 mg Pantoprazole Sodium (Protonix -) 20 mg PO DAILY [facility] Last Admin: 09/16/17 09:33 Dose: 20 mg Paroxetine HCl (Paxil -) 40 mg PO DAILY [facility] Last Admin: 09/16/17 09:33 Dose: 40 mg Sucralfate (Carafate Oral Suspension -) 1 gm PO BID [facility] Last Admin: 09/16/17 22:31 Dose: 1 gm - Objective Vital Signs: Vital Signs Temperature 98.6 F 09/17/17 05:47 Pulse Rate 63 09/17/17 05:47 Respiratory Rate 18 09/17/17 05:47 Blood Pressure 146/71 09/17/17 05:47 O2 Sat by Pulse Oximetry (%) 100 09/17/17 05:47 Constitutional: Yes: Well Nourished, Calm Eyes: Yes: WNL HENT: Yes: WNL Neck: Yes: WNL Cardiovascular: Yes: Regular Rate and Rhythm, S1, S2 Respiratory: Yes: Rhonchi (yolanda rhonchi) Gastrointestinal: Yes: Normal Bowel Sounds, Soft Extremities: Yes: WNL Edema: No Labs: Problem List - Problems (1) HLD (hyperlipidemia) Code(s): E78.5 - HYPERLIPIDEMIA, UNSPECIFIED (2) Bronchiectasis Code(s): J47.9 - BRONCHIECTASIS, UNCOMPLICATED (3) COPD (chronic obstructive pulmonary disease) Code(s): J44.9 - CHRONIC OBSTRUCTIVE PULMONARY DISEASE, UNSPECIFIED (4) HTN (hypertension) Code(s): I10 - ESSENTIAL (PRIMARY) HYPERTENSION (5) Parathyroid adenoma Code(s): D35.1 - BENIGN NEOPLASM OF PARATHYROID GLAND Assessment/Plan IMP COPD EXACERBATION BRONCHIECTASIS H/O RML LOBECTOMY SECONDARY TO BRONCHIECTASIS HTN HLD PARATHYROID ADENOMA PLAN IV ANTIBIOTICS O2 INHALED BRONCHODILATORS MEDROL SAME DOSE CHEST PT ? NEURO EVAL DR CHAMBERS Problem List - Problems (1) HLD (hyperlipidemia) Code(s): E78.5 - HYPERLIPIDEMIA, UNSPECIFIED (2) Bronchiectasis Code(s): J47.9 - BRONCHIECTASIS, UNCOMPLICATED (3) COPD (chronic obstructive pulmonary disease) Code(s): J44.9 - CHRONIC OBSTRUCTIVE PULMONARY DISEASE, UNSPECIFIED (4) HTN (hypertension) Code(s): I10 - ESSENTIAL (PRIMARY) HYPERTENSION (5) Parathyroid adenoma Code(s): D35.1 - BENIGN NEOPLASM OF PARATHYROID GLAND
[2017-09-17] MEDS: ALBUTEROL SO4 2.5/IPRATROPIUM 0.5 INH SOL 3 ML VIAL.NEB. NEB SCH ×4 (08:35→20:58)
[2017-09-17] MEDS ORDERED: PT OWN MED DRAWER 7, Y5N ONE ×2 (09:14→21:14)
[2017-09-17 09:46] LABS: HEMATOCRIT 36.4 % (32.4-45.2); MCH 27.3 pg (25.7-33.7); MCHC 32.9 g/dl (32.0-36.0); MEAN CELL VOLUME 82.9 fl (80-96); MEAN PLT VOLUME 8.5 fl (7.5-11.1); PLATELET COUNT 321 K/MM3 (134-434); RDW 12.6 % (11.6-15.6); WHITE BLOOD COUNT 12.3 K/mm3 (4.0-10.8)
[2017-09-17] MEDS: ENOXAPARIN NA (PORCINE) 40 MG/0.4 ML DISP.SYRIN SQ SCH (10:00)
[2017-09-17] MEDS: SUCRALFATE 1 GM/10 ML UNIT DOSE CUPS PO SCH ×2 (10:01→21:29)
[2017-09-17] MEDS: PARoxetine HCL 20 MG TABLET (FP) PO SCH (10:01)
[2017-09-17] MEDS: amLODIPine BESYLATE 2.5 MG TABLET (FP) PO SCH (10:01)
[2017-09-17] MEDS: CHOLECALCIFEROL (VITAMIN D3) 1,000 UNIT TABLET (FP) PO SCH (10:01)
[2017-09-17] MEDS: PANTOPRAZOLE 20 MG TABLET (FP) PO SCH (10:01)
[2017-09-17] MEDS: BUDESONIDE/FORMETEROL FUMARATE 160/4.5 mcg INHALER IH SCH ×2 (10:01→21:29)
[2017-09-17] MEDS: METOPROLOL TARTRATE 50 MG TABLET (FP) PO SCH (10:01)
[2017-09-17] MEDS: guaiFENesin 200 MG/10 ML 10 ML UNIT-DOSE CUPS PO SCH ×4 (10:02→21:29)
[2017-09-17 10:06] LABS: ANION GAP 5 (8-16); BLOOD UREA NITROGEN 19 mg/dl (7-18); CALCIUM 9.9 mg/dl (8.4-10.2); CHLORIDE 101 mmol/L (98-107); CO2 25 mmol/L (22-28); CREATININE 0.9 mg/dl (0.6-1.3); GLUCOSE,RANDOM 250 mg/dl (74-106); POTASSIUM 3.5 mmol/L (3.5-5.1); SODIUM 131 mmol/L (136-145)
--- NOTE | 2017-09-17 11:14 | PN ---
Physical Exam: SUBJECTIVE: Patient seen and examined. Reports that her breathing is "ok." She is concerned about her walking. She reports that when she is walking often she veers off to the right involuntarily. OBJECTIVE: Vital Signs - 24 hr 3 09/16/17 09/16/17 09/17/17 14:03 22:00 00:00 Temperature 98.3 F 99.3 F Pulse Rate 82 71 Respiratory 16 19 19 Rate Blood Pressure 140/64 157/68 O2 Sat by Pulse 97 99 99 Oximetry (%) 3 09/17/17 09/17/17 05:47 09:58 Temperature 98.6 F 97.9 F Pulse Rate 63 101 H Respiratory 18 20 Rate Blood Pressure 146/71 140/61 O2 Sat by Pulse 100 Oximetry (%) GENERAL: The patient is awake, alert, and fully oriented, in no acute distress. HEAD: Normal with no signs of trauma. EYES: PERRL, extraocular movements intact, sclera anicteric, conjunctiva clear. No ptosis. ENT: Ears normal, nares patent, oropharynx clear without exudates, moist mucous membranes. NECK: Trachea midline, full range of motion, supple. LUNGS: rhonchi and crackles bilat mid and lower lung cool, no accessory muscle use. HEART: Regular rate and rhythm, S1, S2 without murmur, rub or gallop. ABDOMEN: Soft, nontender, nondistended, normoactive bowel sounds, no guarding, no rebound, no hepatosplenomegaly, no masses. EXTREMITIES: 2+ pulses, warm, well-perfused, no edema. NEUROLOGICAL: Cranial nerves II through XII grossly intact. Normal speech, gait not observed. PSYCH: Normal mood, normal affect. SKIN: Warm, dry, normal turgor, no rashes or lesions noted Laboratory Results - last 24 hr 3 09/16/17 09/16/17 09/16/17 09:50 09:50 17:50 WBC 9.8 D RBC 4.24 Hgb 11.7 D Hct 35.3 MCV 83.4 MCH 27.6 MCHC 33.1 RDW 13.6 Plt Count 313 MPV 9.0 Neutrophils % 87.5 H Lymphocytes % 9.0 Monocytes % 3.5 L Eosinophils % 0.0 Basophils % 0.0 Sodium 133 L 131 L Potassium 2.9 L* 4.1 D Chloride 99 100 Carbon Dioxide 24 25 Anion Gap 10 6 L BUN 23 H D 23 H Creatinine 0.9 D 0.8 Random Glucose 198 H D 143 H D Calcium 10.4 H 10.2 Phosphorus 2.8 D Magnesium 1.9 3 09/17/17 09/17/17 09:30 09:30 WBC 12.3 H RBC 4.40 Hgb 12.0 Hct 36.4 MCV 82.9 MCH 27.3 MCHC 32.9 RDW 12.6 Plt Count 321 MPV 8.5 Neutrophils % No Result Required. Lymphocytes % No Result Required. Monocytes % Eosinophils % Basophils % Sodium 131 L Potassium 3.5 Chloride 101 Carbon Dioxide 25 Anion Gap 5 L BUN 19 H Creatinine 0.9 Random Glucose 250 H D Calcium 9.9 Phosphorus Magnesium 2.0 Active Medications 3 Generic Name Dose Route Start Last Admin Trade Name Freq PRN Reason Stop Dose Admin Albuterol/Ipratropium 1 amp 09/13/17 08:00 09/17/17 08:35 Duoneb - NEB 1 amp RQID [facility] Administration Alprazolam 0.25 mg 09/13/17 12:19 09/16/17 23:00 Xanax - PO 0.25 mg HS PRN Administration ANXIETY Amlodipine Besylate 2.5 mg 09/13/17 10:00 09/17/17 10:01 Norvasc - PO 2.5 mg DAILY [facility] Administration Atorvastatin Calcium 10 mg 09/13/17 22:00 09/16/17 22:31 Lipitor - PO 10 mg HS [facility] Administration Budesonide/Formoterol Fumarate 1 puff 09/13/17 10:00 09/17/17 10:01 Symbicort 160/4.5mcg - IH 1 puff BID [facility] Administration Cholecalciferol 5,000 unit 09/13/17 10:00 09/17/17 10:01 Vitamin D3 - PO 5,000 unit DAILY [facility] Administration Enoxaparin Sodium 40 mg 09/13/17 14:15 09/17/17 10:00 Lovenox - SQ 40 mg DAILY [facility] Administration Guaifenesin 10 ml 09/13/17 10:00 09/17/17 10:02 Robitussin - PO 10 ml QID [facility] Administration Levofloxacin 500 mg 09/13/17 10:00 09/17/17 10:01 Levaquin - PO 09/18/17 10:01 500 mg DAILY [facility] Administration Methylprednisolone Sodium Succinate 20 mg 09/16/17 18:00 09/17/17 10:02 Solu-Medrol - IVPUSH 20 mg Q8H-IV [facility] Administration Metoprolol Tartrate 50 mg 09/13/17 10:00 09/17/17 10:01 Lopressor - PO 50 mg DAILY [facility] Administration Ondansetron HCl 4 mg 09/13/17 14:17 09/13/17 14:22 Zofran Odt - SL 4 mg Q8H PRN Administration NAUSEA AND/OR VOMITING Pantoprazole Sodium 20 mg 09/13/17 10:00 09/17/17 10:01 Protonix - PO 20 mg DAILY [facility] Administration Paroxetine HCl 40 mg 09/13/17 10:00 09/17/17 10:01 Paxil - PO 40 mg DAILY [facility] Administration Sucralfate 1 gm 09/14/17 22:00 09/17/17 10:01 Carafate Oral Suspension - PO 1 gm BID [facility] Administration ASSESSMENT/PLAN: 76yF with PMH HTN, HLD, CAD, bronchiectasis, COPD, anxiety/depression, parathyroid adenoma presented to the ED on 09/12/17 with productive cough and N/ V. COPD exacerbation - evaluated by pulmonary, cont current medrol dosing - cont nebs and budesonide - cont levofloxacin leukocytosis - afebrile, no new complaints. will check u/a hyponatremia - had improved, now trending down again, will add urine lytes - nephro consult HTN/HLD/CAD - cont home meds hypercalcemia/parathyroid adenoma - f/u with pcp as outpatient DVT PPX - cont lovenox daily FEN - tolerating po - bmp in am - sodium controlled diet Dispo: pt currently requires continued inpatient management. Visit type - Emergency Visit Emergency Visit: Yes ED Registration Date: 09/15/17 Care time: The patient presented to the Emergency Department on the above date and was hospitalized for further evaluation of their emergent condition. - New Patient This patient is new to me today: No - Critical Care Critical Care patient: No - Discharge Referral Referred to [facility] Med P.C.: No
[2017-09-17 12:21] LABS: PH,URINE 6.5 (4.5-8); URINE APPEARANCE Clear; URINE BILIRUBIN Negative (NEGATIVE); URINE BLOOD Trace-intact (NEGATIVE); URINE COLOR YELLOW; URINE GLUCOSE (UA) Negative (NEGATIVE); URINE KETONE Negative (NEGATIVE); URINE LEUK ESTERASE TRACE (NEGATIVE); URINE NITRITE Negative (NEGATIVE); URINE PROTEIN Trace (NEGATIVE)
[2017-09-17 12:25] LABS: URINE CREATININE 73.9 mg/dL (20-320)
[2017-09-17 13:16] LABS: EPI CELLS FEW /HPF; URINE RBC 0-3 /hpf (0-3); URINE WBC 0-3 (0-5)
[2017-09-17 13:17] LABS: URINE BACTERIA NONE SEEN /hpf (NEGATIVE)
--- NOTE | 2017-09-17 13:24 | CONSULT ---
Consult Consult Specialty:: Nephrology Reason for Consultation:: hyponatremia - History of Present Illness Chief Complaint: productive cough History of Present Illness: Pt is a 76 year old female with pmhx of HTN, Chol, CAD, anxiety and depression who presents to the ER with a productive cough. She was admitted for treatment of a COPD exacerbation. She is currently on IV steroids. I was called to evaluate her for hyponatremia. She says she drinks about 3 liters of water per day. She denies headache or change in vision. She feels that her breathing is improved. She still has a cough. She denies lower ext edema. - History Source History Provided By: Patient, Medical Record - Past Medical History Cardio/Vascular: Yes: HTN, Hyperlipdemia Pulmonary: Yes: COPD, Pneumonia, Other (lung cancer s/p resection) Gastrointestinal: Yes: Peptic Ulcer Disease ...: No Musculoskeletal: Yes: Osteoarthritis - Past Surgical History Past Surgical History: Yes: Hysterectomy (duodenal ulcer with partial gastrectomy/right lobectomy/) - Alcohol/Substance Use Hx Alcohol Use: No (social) - Smoking History Smoking history: Former smoker Have you smoked in the past 12 months: No Aproximately how many cigarettes per day: 80 If you are a former smoker, when did you quit?: 20 YRS AGO - Social History Usual Living Arrangement: Alone History of Recent Travel: No Home Medications - Allergies Allergies/Adverse Reactions: Allergies Allergy/AdvReac Type Severity Reaction Status Date / Time Sulfa (Sulfonamide Allergy Verified 09/12/17 20:59 Antibiotics) - Home Medications Home Medications: Ambulatory Orders Alprazolam [Xanax] 0.25 mg PO HS PRN 02/20/13 Omeprazole [Prilosec (RX)] 20 mg PO DAILY 02/20/13 Pravastatin Sodium [Pravachol -] 40 mg PO DAILY 02/20/13 Cholecalciferol (Vitamin D3) [Vitamin D3] 5,000 unit PO DAILY 02/06/17 Paroxetine HCl [Paxil] 40 mg PO DAILY 02/06/17 Felodipine [Felodipine ER] 2.5 mg PO DAILY 09/12/17 Fluticasone/Vilanterol [Breo Ellipta 200-25 Mcg INH] 1 each IH DAILY 09/12/17 Levofloxacin [Levaquin] 500 mg PO DAILY 09/12/17 Metoprolol Tartrate 50 mg PO DAILY 09/12/17 Umeclidinium [place] [Incruse Ellipta] 62.5 mcg IH DAILY 09/12/17 Family Disease History - Family Disease History Family History: Denies Review of Systems - Review of Systems Constitutional: reports: Malaise Eyes: reports: No Symptoms HENT: reports: No Symptoms Neck: reports: No Symptoms Respiratory: reports: Cough Gastrointestinal: reports: No Symptoms Genitourinary: reports: No Symptoms Musculoskeletal: reports: No Symptoms Integumentary: reports: No Symptoms Neurological: reports: No Symptoms Endocrine: reports: No Symptoms Hematology/Lymphatic: reports: No Symptoms Psychiatric: reports: No Symptoms Physical Exam Vital Signs: Vital Signs Temperature 97.9 F 09/17/17 09:58 Pulse Rate 101 H 09/17/17 09:58 Respiratory Rate 20 09/17/17 09:58 Blood Pressure 140/61 09/17/17 09:58 O2 Sat by Pulse Oximetry (%) 100 09/17/17 05:47 Constitutional: Yes: Calm Eyes: Yes: Conjunctiva Clear HENT: Yes: Atraumatic Neck: Yes: Supple Cardiovascular: Yes: S1, S2 Respiratory: Yes: Wheezes Gastrointestinal: Yes: Normal Bowel Sounds, Soft Renal/: Yes: WNL Musculoskeletal: Yes: WNL Edema: No Neurological: Yes: Oriented Psychiatric: Yes: Oriented Labs: CBC, BMP 09/17/17 09:30 09/17/17 09:30 Laboratory Tests 07/29/17 07/30/17 07/31/17 07:00 07:33 07:30 WBC Hgb Sodium 138 135 L 135 L Ur Random Sodium 09/12/17 09/13/17 09/13/17 21:10 01:16 07:35 WBC Hgb Sodium 132 L 137 133 L Ur Random Sodium 09/14/17 09/16/17 09/16/17 07:25 09:50 09:50 WBC Hgb 11.7 D Sodium 134 L 133 L Ur Random Sodium 09/16/17 09/17/17 09/17/17 17:50 09:30 09:30 WBC 12.3 H Hgb 12.0 Sodium 131 L 131 L Ur Random Sodium 09/17/17 11:45 WBC Hgb Sodium Ur Random Sodium 81 Imaging - Results Chest X-ray: Report Reviewed Cat Scan: Report Reviewed Problem List - Problems (1) Hyponatremia Code(s): E87.1 - HYPO-OSMOLALITY AND HYPONATREMIA (2) HTN (hypertension) Code(s): I10 - ESSENTIAL (PRIMARY) HYPERTENSION (3) Hypokalemia Code(s): E87.6 - HYPOKALEMIA (4) COPD (chronic obstructive pulmonary disease) Code(s): J44.9 - CHRONIC OBSTRUCTIVE PULMONARY DISEASE, UNSPECIFIED Assessment/Plan Current Medications Generic Name Dose Route Start Last Admin Trade Name Freq PRN Reason Stop Dose Admin Albuterol/Ipratropium 1 amp 09/13/17 08:00 09/17/17 11:48 Duoneb - NEB 1 amp RQID [facility] Administration Alprazolam 0.25 mg 09/13/17 12:19 09/16/17 23:00 Xanax - PO 0.25 mg HS PRN Administration ANXIETY Amlodipine Besylate 2.5 mg 09/13/17 10:00 09/17/17 10:01 Norvasc - PO 2.5 mg DAILY [facility] Administration Atorvastatin Calcium 10 mg 09/13/17 22:00 09/16/17 22:31 Lipitor - PO 10 mg HS [facility] Administration Budesonide/Formoterol Fumarate 1 puff 09/13/17 10:00 09/17/17 10:01 Symbicort 160/4.5mcg - IH 1 puff BID [facility] Administration Cholecalciferol 5,000 unit 09/13/17 10:00 09/17/17 10:01 Vitamin D3 - PO 5,000 unit DAILY [facility] Administration Enoxaparin Sodium 40 mg 09/13/17 14:15 09/17/17 10:00 Lovenox - SQ 40 mg DAILY [facility] Administration Guaifenesin 10 ml 09/13/17 10:00 09/17/17 10:02 Robitussin - PO 10 ml QID [facility] Administration Levofloxacin 500 mg 09/13/17 10:00 09/17/17 10:01 Levaquin - PO 09/18/17 10:01 500 mg DAILY [facility] Administration Methylprednisolone Sodium Succinate 20 mg 09/16/17 18:00 09/17/17 10:02 Solu-Medrol - IVPUSH 20 mg Q8H-IV [facility] Administration Metoprolol Tartrate 50 mg 09/13/17 10:00 09/17/17 10:01 Lopressor - PO 50 mg DAILY [facility] Administration Ondansetron HCl 4 mg 09/13/17 14:17 09/13/17 14:22 Zofran Odt - SL 4 mg Q8H PRN Administration NAUSEA AND/OR VOMITING Pantoprazole Sodium 20 mg 09/13/17 10:00 09/17/17 10:01 Protonix - PO 20 mg DAILY [facility] Administration Paroxetine HCl 40 mg 09/13/17 10:00 09/17/17 10:01 Paxil - PO 40 mg DAILY [facility] Administration Sucralfate 1 gm 09/14/17 22:00 09/17/17 10:01 Carafate Oral Suspension - PO 1 gm BID [facility] Administration Impression 1. hyponatremia 2. hypokalemia 3. copd exacerbation 4. anxiety 5. depression 6. GERD 7. bronchiectasis 8. CAD Plan - pt has been drinking about 3 liters of water, will restrict down to 1.5 - check urine and plasma osm - check tsh - steroids may contribute to hyponatremia as well - paxil may cause hyponatremia - repeat labs in am - may need to adjust meds if she does not improved with fluids restriction - check mag level - will follow Dr Wilson
[2017-09-17] MEDS: POTASSIUM CHLORIDE TABS 20 MEQ TABLET.ER (FP) PO SCH (16:54)
--- NOTE | 2017-09-17 17:36 | CON.NEURO ---
Consult - Past Medical History Cardio/Vascular: Yes: HTN, Hyperlipdemia Pulmonary: Yes: COPD, Pneumonia, Other (lung cancer s/p resection) Gastrointestinal: Yes: Peptic Ulcer Disease ...: No Musculoskeletal: Yes: Osteoarthritis - Past Surgical History Past Surgical History: Yes: Hysterectomy (duodenal ulcer with partial gastrectomy/right lobectomy/) - Alcohol/Substance Use Hx Alcohol Use: No (social) - Smoking History Smoking history: Former smoker Have you smoked in the past 12 months: No Aproximately how many cigarettes per day: 80 If you are a former smoker, when did you quit?: 20 YRS AGO - Social History Usual Living Arrangement: Alone History of Recent Travel: No Home Medications - Allergies Allergies/Adverse Reactions: Allergies Allergy/AdvReac Type Severity Reaction Status Date / Time Sulfa (Sulfonamide Allergy Verified 09/12/17 20:59 Antibiotics) - Home Medications Home Medications: Ambulatory Orders Alprazolam [Xanax] 0.25 mg PO HS PRN 02/20/13 Omeprazole [Prilosec (RX)] 20 mg PO DAILY 02/20/13 Pravastatin Sodium [Pravachol -] 40 mg PO DAILY 02/20/13 Cholecalciferol (Vitamin D3) [Vitamin D3] 5,000 unit PO DAILY 02/06/17 Paroxetine HCl [Paxil] 40 mg PO DAILY 02/06/17 Felodipine [Felodipine ER] 2.5 mg PO DAILY 09/12/17 Fluticasone/Vilanterol [Breo Ellipta 200-25 Mcg INH] 1 each IH DAILY 09/12/17 Levofloxacin [Levaquin] 500 mg PO DAILY 09/12/17 Metoprolol Tartrate 50 mg PO DAILY 09/12/17 Umeclidinium [place] [Incruse Ellipta] 62.5 mcg IH DAILY 09/12/17 Physical Exam-Neuro Vital Signs: Vital Signs Temperature 98.4 F 09/17/17 14:08 Pulse Rate 71 09/17/17 14:08 Respiratory Rate 16 09/17/17 14:08 Blood Pressure 130/58 09/17/17 14:08 O2 Sat by Pulse Oximetry (%) 96 09/17/17 14:08 Labs: CBC, BMP 09/17/17 09:30 09/17/17 09:30 Assessment/Plan cc Swaying to right side HPI 76 year old female history of COPD, right midlle lobectomy , depression and anxiety. Patient has been swaying on right. She has these symptoms since 2016. Patient denies any headhace, dysphagia dysarthria or diplopia. She is afraid to walk as she feels she may run into thing on right side. Her ct scan was unremarkable , and it showed white matter disease. PAST MEDICAL HISTORY: HTN, HLD, CAD, bronchiectasis, COPD, anxiety/depression, parathyroid adenoma ( scheduled for removal in October) PAST SURGICAL HISTORY: Billroth II (1968) GAURAV/BSO (1978) Right middle lung lobectomy (1998) Right foot calcaneal spur (2003) Right knee arthroscopy (2011) Cataracts (2012) Right ankle arthroscopy (2013) Left shoulder arthroscopy (2014) Social History: Smoking: quit smoking 25y ago, smoked 4ppd x 30years Alcohol: pt denies Drugs: pt denies Family History: father 46 heart disease mother 69 diabetes and heart disease sister with breast cancer brother with PVD s/p stent sister alive with 7 coronary stents sister alive with heart disease Allergies Sulfa (Sulfonamide Antibiotics) Allergy (Verified 09/12/17 20:59) HOME MEDICATIONS: 3 Medication Instructions Recorded Alprazolam [Xanax] 0.25 mg PO HS PRN 02/20/13 Omeprazole [Prilosec (RX)] 20 mg PO DAILY 02/20/13 Pravastatin Sodium [Pravachol -] 40 mg PO DAILY 02/20/13 Cholecalciferol (Vitamin D3) 5,000 unit PO DAILY 02/06/17 [Vitamin D3] Paroxetine HCl [Paxil] 40 mg PO DAILY 02/06/17 Felodipine [Felodipine ER] 2.5 mg PO DAILY 09/12/17 Fluticasone/Vilanterol [Breo 1 each IH DAILY 09/12/17 Ellipta 200-25 Mcg INH] Levofloxacin [Levaquin] 500 mg PO DAILY 09/12/17 Metoprolol Tartrate 50 mg PO DAILY 09/12/17 Umeclidinium [place] [Incruse 62.5 mcg IH DAILY 09/12/17 Ellipta] ROS reviewed in chart Neurological Examination Alert oriented x 3, she was able to tell me date and where she is, speech is normal eomi, pupils is reactive no face asymmetry moving all extremity ftn and htn is normal both side sensation is normal There is hyper reflexia bilaeral and planter is mute CT head showed there is white matter disease Assessment- Swaying to one side, no neurological focal deficit identified. could be medication induced. given she has this persistent problem ,suggest to do mri of brain to rule out any cerebellar stroke and any evidence of cord compression ( as there is hyper reflexia in both upper and lower extremity) Cognitive difficulty could be due to medication induced ( xanax), she has been for a long time Plan mri of brain and mri of c spine also order b12,folate tsh will follow after above test if work up is negative, she can follow up outpatient for cognitive difficulty as outpatient Thanking you so much Toro Moore MD
[2017-09-17] MEDS: ATORVASTATIN CA 10 MG TABLET (FP) PO SCH (21:29)
[2017-09-17] MEDS: ACETAMINOPHEN 325 MG TABLET (FP) PO PRN (22:17)
[2017-09-17] MEDS: ALPRAZolam 0.25 MG TABLET PO PRN (22:20)
[2017-09-18] MEDS: methylPREDNISolone NA SUCC 40 MG/1 ML VIAL IVPUSH SCH ×3 (01:39→17:57)
[2017-09-18] MEDS: ALBUTEROL SO4 2.5/IPRATROPIUM 0.5 INH SOL 3 ML VIAL.NEB. NEB SCH ×4 (08:55→21:32)
[2017-09-18 09:02] LABS: ANION GAP 5 (8-16); BLOOD UREA NITROGEN 18 mg/dl (7-18); CALCIUM 10.1 mg/dl (8.4-10.2); CHLORIDE 101 mmol/L (98-107); CO2 30 mmol/L (22-28); GLUCOSE,RANDOM 141 mg/dl (74-106); MAGNESIUM 1.9 mg/dL (1.8-2.4); POTASSIUM 3.9 mmol/L (3.5-5.1); SODIUM 136 mmol/L (136-145)
[2017-09-18 09:08] LABS: BASO % 0.2 % (0-2.0); HEMATOCRIT 34.6 % (32.4-45.2); HEMOGLOBIN 11.6 GM/dl (10.7-15.3); LYMPH % 9.6 % (8-40); MCH 27.6 pg (25.7-33.7); MCHC 33.5 g/dl (32.0-36.0); MEAN CELL VOLUME 82.3 fl (80-96); MEAN PLT VOLUME 8.4 fl (7.5-11.1); MONO % 4.1 % (3.8-10.2); NEUT % 86.1 % (42.8-82.8); PLATELET COUNT 285 K/MM3 (134-434); RBC 4.21 M/mm3 (3.60-5.2); RDW 12.8 % (11.6-15.6); WHITE BLOOD COUNT 8.6 K/mm3 (4.0-10.8)
[2017-09-18 09:36] LABS: CREATININE < 0.8 mg/dl (0.6-1.3)
--- NOTE | 2017-09-18 10:47 | PN ---
Progress Note (short form) - Note Progress Note: PULMONARY FEELS WEAK RIGHT GREATER THAN LEFT NEUROLOGY EVAL REVIEWED VSS/AFEBRILE ANICTERIC/PALE SCATTERED CRACKLES CHRONIC BIBASILAR S1S2 BS+ NO EDEMA LABS/MEDS/NOTES/MICRO/CT REVIEWED: BIBASILAR BRONCHIECTATIC CHANGES/COPD MRI REPORT REVIEWED IMP COPD EXACERBATION BRONCHIECTASIS LIKLEY INFECTED H/O RML LOBECTOMY SECONDARY TO BRONCHIECTASIS HTN HLD PARATHYROID ADENOMA HYPOKALEMIA PLAN O2 INHALED BRONCHODILATORS MEDROL TAPERING CHEST PT REPLETE LYTES NEURO F/U R KALI LEZAMA
[2017-09-18] MEDS: METOPROLOL TARTRATE 50 MG TABLET (FP) PO SCH (11:19)
[2017-09-18] MEDS: PANTOPRAZOLE 20 MG TABLET (FP) PO SCH (11:19)
[2017-09-18] MEDS: PARoxetine HCL 20 MG TABLET (FP) PO SCH (11:20)
[2017-09-18] MEDS: amLODIPine BESYLATE 2.5 MG TABLET (FP) PO SCH (11:20)
[2017-09-18] MEDS: CHOLECALCIFEROL (VITAMIN D3) 1,000 UNIT TABLET (FP) PO SCH (11:21)
[2017-09-18] MEDS: ENOXAPARIN NA (PORCINE) 40 MG/0.4 ML DISP.SYRIN SQ SCH (11:21)
[2017-09-18] MEDS: SUCRALFATE 1 GM/10 ML UNIT DOSE CUPS PO SCH ×2 (11:21→21:31)
[2017-09-18] MEDS: guaiFENesin 200 MG/10 ML 10 ML UNIT-DOSE CUPS PO SCH ×4 (11:21→21:32)
[2017-09-18] MEDS: POTASSIUM CHLORIDE TABS 20 MEQ TABLET.ER (FP) PO SCH (11:21)
[2017-09-18] MEDS ORDERED: PT OWN MED DRAWER 7, Y5N ONE (11:23)
[2017-09-18] MEDS: BUDESONIDE/FORMETEROL FUMARATE 160/4.5 mcg INHALER IH SCH ×2 (11:24→21:31)
--- NOTE | 2017-09-18 11:48 | PN ---
Progress Note, Physician History of Present Illness: Pt seen and examined at bedside. She is awake and alert. She was able to tolerated the 1.5 liter fluid restriction. - Current Medication List Current Medications: Active Medications Acetaminophen (Tylenol -) 650 mg PO Q6H PRN PRN Reason: FEVER Last Admin: 09/17/17 22:17 Dose: 650 mg Albuterol/Ipratropium (Duoneb -) 1 amp NEB RQID [facility] Last Admin: 09/18/17 08:55 Dose: 1 amp Alprazolam (Xanax -) 0.25 mg PO HS PRN PRN Reason: ANXIETY Last Admin: 09/17/17 22:20 Dose: 0.25 mg Amlodipine Besylate (Norvasc -) 2.5 mg PO DAILY [facility] Last Admin: 09/18/17 11:20 Dose: 2.5 mg Atorvastatin Calcium (Lipitor -) 10 mg PO HS [facility] Last Admin: 09/17/17 21:29 Dose: 10 mg Budesonide/Formoterol Fumarate (Symbicort 160/4.5mcg -) 1 puff IH BID [facility] Last Admin: 09/18/17 11:24 Dose: 1 puff Cholecalciferol (Vitamin D3 -) 5,000 unit PO DAILY [facility] Last Admin: 09/18/17 11:21 Dose: 5,000 unit Enoxaparin Sodium (Lovenox -) 40 mg SQ DAILY [facility] Last Admin: 09/18/17 11:21 Dose: 40 mg Guaifenesin (Robitussin -) 10 ml PO QID [facility] Last Admin: 09/18/17 11:21 Dose: 10 ml Methylprednisolone Sodium Succinate (Solu-Medrol -) 20 mg IVPUSH Q8H-IV [facility] Last Admin: 09/18/17 11:24 Dose: 20 mg Metoprolol Tartrate (Lopressor -) 50 mg PO DAILY [facility] Last Admin: 09/18/17 11:19 Dose: 50 mg Ondansetron HCl (Zofran Odt -) 4 mg SL Q8H PRN PRN Reason: NAUSEA AND/OR VOMITING Last Admin: 09/13/17 14:22 Dose: 4 mg Pantoprazole Sodium (Protonix -) 20 mg PO DAILY [facility] Last Admin: 09/18/17 11:19 Dose: 20 mg Paroxetine HCl (Paxil -) 40 mg PO DAILY [facility] Last Admin: 09/18/17 11:20 Dose: 40 mg Potassium Chloride (K-Dur -) 20 meq PO DAILY [facility] Last Admin: 09/18/17 11:21 Dose: 20 meq Sucralfate (Carafate Oral Suspension -) 1 gm PO BID [facility] Last Admin: 09/18/17 11:21 Dose: 1 gm - Objective Vital Signs: Vital Signs Temperature 97.7 F 09/18/17 06:00 Pulse Rate 65 09/18/17 06:00 Respiratory Rate 18 09/18/17 06:00 Blood Pressure 151/76 09/18/17 06:00 O2 Sat by Pulse Oximetry (%) 95 09/18/17 06:29 Constitutional: Yes: Calm Eyes: Yes: Conjunctiva Clear HENT: Yes: Atraumatic Neck: Yes: Supple Cardiovascular: Yes: S1, S2 Respiratory: Yes: Wheezes Gastrointestinal: Yes: Normal Bowel Sounds, Soft Genitourinary: Yes: WNL Musculoskeletal: Yes: WNL Extremities: Yes: WNL Edema: No Neurological: Yes: Oriented Psychiatric: Yes: Oriented Labs: CBC, BMP 09/18/17 07:40 09/18/17 07:40 Problem List - Problems (1) Hyponatremia Code(s): E87.1 - HYPO-OSMOLALITY AND HYPONATREMIA (2) HTN (hypertension) Code(s): I10 - ESSENTIAL (PRIMARY) HYPERTENSION (3) Hypokalemia Code(s): E87.6 - HYPOKALEMIA (4) COPD (chronic obstructive pulmonary disease) Code(s): J44.9 - CHRONIC OBSTRUCTIVE PULMONARY DISEASE, UNSPECIFIED Assessment/Plan Current Medications Generic Name Dose Route Start Last Admin Trade Name Freq PRN Reason Stop Dose Admin Acetaminophen 650 mg 09/17/17 21:49 09/17/17 22:17 Tylenol - PO 650 mg Q6H PRN Administration FEVER Albuterol/Ipratropium 1 amp 09/13/17 08:00 09/18/17 08:55 Duoneb - NEB 1 amp RQID [facility] Administration Alprazolam 0.25 mg 09/13/17 12:19 09/17/17 22:20 Xanax - PO 0.25 mg HS PRN Administration ANXIETY Amlodipine Besylate 2.5 mg 09/13/17 10:00 09/18/17 11:20 Norvasc - PO 2.5 mg DAILY [facility] Administration Atorvastatin Calcium 10 mg 09/13/17 22:00 09/17/17 21:29 Lipitor - PO 10 mg HS [facility] Administration Budesonide/Formoterol Fumarate 1 puff 09/13/17 10:00 09/18/17 11:24 Symbicort 160/4.5mcg - IH 1 puff BID [facility] Administration Cholecalciferol 5,000 unit 09/13/17 10:00 09/18/17 11:21 Vitamin D3 - PO 5,000 unit DAILY [facility] Administration Enoxaparin Sodium 40 mg 09/13/17 14:15 09/18/17 11:21 Lovenox - SQ 40 mg DAILY [facility] Administration Guaifenesin 10 ml 09/13/17 10:00 09/18/17 11:21 Robitussin - PO 10 ml QID [facility] Administration Methylprednisolone Sodium Succinate 20 mg 09/16/17 18:00 09/18/17 11:24 Solu-Medrol - IVPUSH 20 mg Q8H-IV [facility] Administration Metoprolol Tartrate 50 mg 09/13/17 10:00 09/18/17 11:19 Lopressor - PO 50 mg DAILY [facility] Administration Ondansetron HCl 4 mg 09/13/17 14:17 09/13/17 14:22 Zofran Odt - SL 4 mg Q8H PRN Administration NAUSEA AND/OR VOMITING Pantoprazole Sodium 20 mg 09/13/17 10:00 09/18/17 11:19 Protonix - PO 20 mg DAILY [facility] Administration Paroxetine HCl 40 mg 09/13/17 10:00 09/18/17 11:20 Paxil - PO 40 mg DAILY [facility] Administration Potassium Chloride 20 meq 09/17/17 15:15 09/18/17 11:21 K-Dur - PO 20 meq DAILY [facility] Administration Sucralfate 1 gm 09/14/17 22:00 09/18/17 11:21 Carafate Oral Suspension - PO 1 gm BID [facility] Administration Laboratory Tests 09/17/17 09/18/17 09/18/17 17:30 07:40 07:40 Sodium 136 Random Glucose 141 H D Serum Osmolality Pending Magnesium 1.9 TSH Pending Urine Osmolality 508 Impression 1. hyponatremia 2. hypokalemia 3. copd exacerbation 4. anxiety 5. depression 6. GERD 7. bronchiectasis 8. CAD Plan - sodium is improved - cont free water restriction - workup is in progress however sodium has normalized - cont current meds - monitor lytes - discussed with medical team Dr Wilson
--- NOTE | 2017-09-18 13:08 | PN ---
Physical Exam: SUBJECTIVE: Patient seen and examined, reports feeling well, coughing much improved, ambulated with physical therapy walked 260 feet patient denies any dizziness or dypspnea upon exertion OBJECTIVE:76yF with PMH HTN, HLD, CAD, bronchiectasis, COPD, anxiety/depression , parathyroid adenoma presented to the ED on 09/12/17 with productive cough and N /V. Vital Signs Period Temp Pulse Resp BP Sys/García Pulse Ox Last 24 Hr 97.7 F-98.4 F 65-75 16-19 130-151/58-76 93-96 GENERAL: The patient is awake, alert, and fully oriented, in no acute distress. HEAD: Normal with no signs of trauma. EYES: PERRL, extraocular movements intact, sclera anicteric, conjunctiva clear. No ptosis. ENT: Ears normal, nares patent, oropharynx clear without exudates, moist mucous membranes. NECK: Trachea midline, full range of motion, supple. LUNGS: Breath sounds equal, course rhonchi to apexes and crackles to base, no wheezes, no accessory muscle use. HEART: Regular rate and rhythm, S1, S2 without murmur, rub or gallop. ABDOMEN: Soft, nontender, nondistended, normoactive bowel sounds, no guarding, no rebound, no hepatosplenomegaly, no masses. EXTREMITIES: 2+ pulses, warm, well-perfused, no edema. NEUROLOGICAL: Cranial nerves II through XII grossly intact. Normal speech, steady gait noted PSYCH: Normal mood, normal affect. SKIN: Warm, dry, normal turgor, no rashes or lesions noted Laboratory Results - last 24 hr 09/17/17 09/17/17 09/17/17 11:45 17:30 17:30 WBC RBC Hgb Hct MCV MCH MCHC RDW Plt Count MPV Neutrophils % Lymphocytes % Monocytes % Eosinophils % Basophils % Sodium Potassium Chloride Carbon Dioxide Anion Gap BUN Creatinine Random Glucose Serum Osmolality Calcium Magnesium Vitamin B12 Serum Folate TSH Urine RBC 0-3 Urine WBC 0-3 Ur Epithelial Cells Few Urine Bacteria None seen Hyaline Casts 5-10 Urine Osmolality 508 Ur Random Sodium 84 Ur Random Potassium 23.2 Ur Random Chloride 102 09/18/17 09/18/17 09/18/17 07:40 07:40 07:40 WBC 8.6 D RBC 4.21 Hgb 11.6 Hct 34.6 MCV 82.3 MCH 27.6 MCHC 33.5 RDW 12.8 Plt Count 285 MPV 8.4 Neutrophils % 86.1 H Lymphocytes % 9.6 Monocytes % 4.1 Eosinophils % 0.0 Basophils % 0.2 Sodium 136 Potassium 3.9 Chloride 101 Carbon Dioxide 30 H Anion Gap 5 L BUN 18 Creatinine < 0.8 Random Glucose 141 H D Serum Osmolality Cancelled Calcium 10.1 Magnesium 1.9 Vitamin B12 333 Serum Folate Cancelled 16 TSH Cancelled 0.51 Urine RBC Urine WBC Ur Epithelial Cells Urine Bacteria Hyaline Casts Urine Osmolality Ur Random Sodium Ur Random Potassium Ur Random Chloride Active Medications Generic Name Dose Route Start Last Admin Trade Name Freq PRN Reason Stop Dose Admin Acetaminophen 650 mg 09/17/17 21:49 09/17/17 22:17 Tylenol - PO 650 mg Q6H PRN Administration FEVER Albuterol/Ipratropium 1 amp 09/13/17 08:00 09/18/17 08:55 Duoneb - NEB 1 amp RQID [facility] Administration Alprazolam 0.25 mg 09/13/17 12:19 09/17/17 22:20 Xanax - PO 0.25 mg HS PRN Administration ANXIETY Amlodipine Besylate 2.5 mg 09/13/17 10:00 09/18/17 11:20 Norvasc - PO 2.5 mg DAILY [facility] Administration Atorvastatin Calcium 10 mg 09/13/17 22:00 09/17/17 21:29 Lipitor - PO 10 mg HS [facility] Administration Budesonide/Formoterol Fumarate 1 puff 09/13/17 10:00 09/18/17 11:24 Symbicort 160/4.5mcg - IH 1 puff BID [facility] Administration Cholecalciferol 5,000 unit 09/13/17 10:00 09/18/17 11:21 Vitamin D3 - PO 5,000 unit DAILY [facility] Administration Enoxaparin Sodium 40 mg 09/13/17 14:15 09/18/17 11:21 Lovenox - SQ 40 mg DAILY [facility] Administration Guaifenesin 10 ml 09/13/17 10:00 09/18/17 11:21 Robitussin - PO 10 ml QID [facility] Administration Methylprednisolone Sodium Succinate 20 mg 09/16/17 18:00 09/18/17 11:24 Solu-Medrol - IVPUSH 20 mg Q8H-IV [facility] Administration Metoprolol Tartrate 50 mg 09/13/17 10:00 09/18/17 11:19 Lopressor - PO 50 mg DAILY [facility] Administration Ondansetron HCl 4 mg 09/13/17 14:17 09/13/17 14:22 Zofran Odt - SL 4 mg Q8H PRN Administration NAUSEA AND/OR VOMITING Pantoprazole Sodium 20 mg 09/13/17 10:00 09/18/17 11:19 Protonix - PO 20 mg DAILY [facility] Administration Paroxetine HCl 40 mg 09/13/17 10:00 09/18/17 11:20 Paxil - PO 40 mg DAILY [facility] Administration Potassium Chloride 20 meq 09/17/17 15:15 09/18/17 11:21 K-Dur - PO 20 meq DAILY [facility] Administration Sucralfate 1 gm 09/14/17 22:00 09/18/17 11:21 Carafate Oral Suspension - PO 1 gm BID [facility] Administration IMAGING MRI OF BRAIN: moderate atrophy,no acute pathology ASSESSMENT/PLAN: 1) pulm COPD exacerbation - pulmonary consulted and following, cont current medrol dosing - cont nebs and symbicort - pt completed 7 days of levaquin 2) hyponatremia - serum sodium wnl, secondary to dilution - nephro consulted and following 3) cardiovascular HTN/HLD/CAD - cont home meds 4) hypercalcemia/parathyroid adenoma - f/u with pcp as outpatient 5) neuro - pt reports swaying to the right upon walking, patient ambulated today with PT steady gait noted, mri no acute pathology - Dr Enciso neurology consulted and following DVT PPX - cont lovenox daily FEN - tolerating po - bmp in am - sodium controlled diet Dispo: pt currently requires continued inpatient management. Visit type - Emergency Visit Emergency Visit: Yes ED Registration Date: 09/15/17 Care time: The patient presented to the Emergency Department on the above date and was hospitalized for further evaluation of their emergent condition. - New Patient This patient is new to me today: No - Critical Care Critical Care patient: No - Discharge Referral Referred to [facility] No
[2017-09-18] MEDS: ALPRAZolam 0.25 MG TABLET PO PRN (21:31)
[2017-09-18] MEDS: ATORVASTATIN CA 10 MG TABLET (FP) PO SCH (21:31)
[2017-09-18] MEDS: ACETAMINOPHEN 325 MG TABLET (FP) PO PRN (21:32)
[2017-09-19] MEDS: methylPREDNISolone NA SUCC 40 MG/1 ML VIAL IVPUSH SCH ×2 (02:00→10:00)
--- NOTE | 2017-09-19 09:24 | DS ---
Physical Exam: SUBJECTIVE: Patient seen and examined, sitting in bedside chair, reports feeling much improved, tolerated regular diet. OBJECTIVE: Patient is a 75 year old male with a significant past medical history of bronchiectasis s/p RMLobectomy, COPD who presented to the ED with cough, productive yellow and N/V x 1-2 days. She was seen by her education and development manager who started her on levaquin and inhalers 09/11 without relief. She just started the levaquin this past evening. ER course was notable for: (1) WBC 6.8 (2) Potassium 2.9 (3) CXR unchanged Vital Signs Period Temp Pulse Resp BP Sys/García Pulse Ox Last 24 Hr 97.4 F-97.8 F 74-79 16-19 130-159/55-85 92-95 PHYSICAL EXAM GENERAL: The patient is awake, alert, and fully oriented, in no acute distress. HEAD: Normal with no signs of trauma. EYES: PERRL, extraocular movements intact, sclera anicteric, conjunctiva clear. ENT: Ears normal, nares patent, oropharynx clear without exudates, moist mucous membranes. NECK: Trachea midline, full range of motion, supple. LUNGS: Breath sounds equal, clear to auscultation bilaterally to apexes, diminished to bases, no wheezes, no crackles, no accessory muscle use. HEART: Regular rate and rhythm, S1, S2 without murmur, rub or gallop. ABDOMEN: Soft, nontender, nondistended, normoactive bowel sounds, no guarding, no rebound, no hepatosplenomegaly, no masses. EXTREMITIES: 2+ pulses, warm, well-perfused, no edema. NEUROLOGICAL: Cranial nerves II through XII grossly intact. Normal speech, gait not observed. PSYCH: Normal mood, normal affect. SKIN: Warm, dry, normal turgor, no rashes or lesions noted. LABS Laboratory Results - last 24 hr 09/18/17 09/18/17 07:40 07:40 Creatinine < 0.8 Serum Osmolality 294 Vitamin B12 333 Serum Folate 16 TSH 0.51 CBC WBC 8.6 K/mm3 (4.0-10.8) D 09/18/17 07:40 RBC 4.21 M/mm3 (3.60-5.2) 09/18/17 07:40 Hgb 11.6 GM/dl (10.7-15.3) 09/18/17 07:40 Hct 34.6 % (32.4-45.2) 09/18/17 07:40 MCV 82.3 fl (80-96) 09/18/17 07:40 MCH 27.6 pg (25.7-33.7) 09/18/17 07:40 MCHC 33.5 g/dl (32.0-36.0) 09/18/17 07:40 RDW 12.8 % (11.6-15.6) 09/18/17 07:40 Plt Count 285 K/MM3 (134-434) 09/18/17 07:40 MPV 8.4 fl (7.5-11.1) 09/18/17 07:40 Neutrophils % 86.1 % (42.8-82.8) H 09/18/17 07:40 Neutrophils % (Manual) 87.0 % (42.8-82.8) H 09/17/17 09:30 Lymphocytes % 9.6 % (8-40) 09/18/17 07:40 Lymphocytes % (Manual) 10.0 % (8-40) 09/17/17 09:30 Monocytes % 4.1 % (3.8-10.2) 09/18/17 07:40 Monocytes % (Manual) 3 % (3.8-10.2) L 09/17/17 09:30 Eosinophils % 0.0 % (0-4.5) 09/18/17 07:40 Basophils % 0.2 % (0-2.0) 09/18/17 07:40 CMP Sodium 136 mmol/L (136-145) 09/18/17 07:40 Potassium 3.9 mmol/L (3.5-5.1) 09/18/17 07:40 Chloride 101 mmol/L (98-107) 09/18/17 07:40 Carbon Dioxide 30 mmol/L (22-28) H 09/18/17 07:40 Anion Gap 5 (8-16) L 09/18/17 07:40 BUN 18 mg/dl (7-18) 09/18/17 07:40 Creatinine < 0.8 mg/dl (0.6-1.3) 09/18/17 07:40 Creat Clearance w eGFR > 60 (>60) 09/12/17 21:10 Random Glucose 141 mg/dl (74-106) H D 09/18/17 07:40 Serum Osmolality 294 mosm/kg (278-305) 09/18/17 07:40 Calcium 10.1 mg/dl (8.4-10.2) 09/18/17 07:40 Phosphorus 2.8 mg/dl (2.5-4.6) D 09/16/17 09:50 Magnesium 1.9 mg/dL (1.8-2.4) 09/18/17 07:40 Total Bilirubin 0.5 mg/dl (0.2-1.0) 09/12/17 21:10 AST 28 U/L (10-42) D 09/12/17 21:10 ALT 12 U/L (10-40) 09/12/17 21:10 Alkaline Phosphatase 96 U/L (32-92) H D 09/12/17 21:10 Creatine Kinase 55 IU/L (26-192) 09/12/17 21:10 Troponin I < 0.03 ng/ml (0.00-0.06) 09/12/17 21:10 Total Protein 7.0 g/dl (6.4-8.3) 09/12/17 21:10 Albumin 3.5 g/dl (3.5-5.0) 09/12/17 21:10 Lipase 73 U/L (73-393) 09/12/17 21:10 Vitamin B12 333 pg/ml (180-914) 09/18/17 07:40 Serum Folate 16 ng/ml (3.1-17.5) 09/18/17 07:40 TSH 0.51 uIU/ml (0.358-3.74) 09/18/17 07:40 Microbiology 09/18/17 Unknown Sputum - Expectorated Gram Stain - Final 09/17/17 11:45 Urine - Urine Clean Catch Urine Culture - Preliminary No growth. IMAGING MRI OF BRAIN: moderate atrophy,no acute pathology HOSPITAL COURSE: COPD exacerbation - pulmonary consulted and followed patient, patient was started on solumedrol and then transitioned to prednsione - treated with standing combivent nebulizers and symbicort - pt completed 7 days of levaquin hyponatremia - serum sodium wnl, secondary to dilution - nephro consulted and followed HTN/HLD/CAD - cont home meds hypercalcemia/parathyroid adenoma - f/u with pcp as outpatient neuro - pt reports swaying to the right upon walking, patient ambulated today with PT steady gait noted, mri no acute pathology - Dr Enciso neurology consulted and following Date of Admission:09/15/17 Date of Discharge: 09/19/17 Minutes to complete discharge: 45 Discharge Summary Reason For Visit: COUGH, VOMITING, DIARRHEA Current Active Problems Dehydration (Acute) HLD (hyperlipidemia) (Acute) HTN (hypertension) (Acute) Hypokalemia (Acute) Hyponatremia (Acute) Parathyroid adenoma (Acute) Condition: Stable - Instructions Diet, Activity, Other Instructions: continue prednisone as prescribed continue all medications as prescribed if any new or persistent symptoms develop please return to the emergency department Referrals: Abelardo Farias MD [Staff Physician] - Papito Rousseau MD [Primary Care Provider] - Disposition: HOME - Home Medications Comprehensive Discharge Medication List: Ambulatory Orders Alprazolam [Xanax] 0.25 mg PO HS PRN 02/20/13 Omeprazole [Prilosec (RX)] 20 mg PO DAILY 02/20/13 Pravastatin Sodium [Pravachol -] 40 mg PO DAILY 02/20/13 Cholecalciferol (Vitamin D3) [Vitamin D3] 5,000 unit PO DAILY 02/06/17 Paroxetine HCl [Paxil] 40 mg PO DAILY 02/06/17 Felodipine [Felodipine ER] 2.5 mg PO DAILY 09/12/17 Fluticasone/Vilanterol [Breo Ellipta 200-25 Mcg INH] 1 each IH DAILY 09/12/17 Levofloxacin [Levaquin] 500 mg PO DAILY 09/12/17 Metoprolol Tartrate 50 mg PO DAILY 09/12/17 Umeclidinium [place] [Incruse Ellipta] 62.5 mcg IH DAILY 09/12/17 - Discharge Referral Referred to [facility] Med [facility].: No
[2017-09-19] MEDS: PARoxetine HCL 20 MG TABLET (FP) PO SCH (09:37)
[2017-09-19] MEDS: METOPROLOL TARTRATE 50 MG TABLET (FP) PO SCH (09:41)
[2017-09-19] MEDS: amLODIPine BESYLATE 2.5 MG TABLET (FP) PO SCH (09:41)
[2017-09-19] MEDS: PANTOPRAZOLE 20 MG TABLET (FP) PO SCH (09:41)
[2017-09-19] MEDS: POTASSIUM CHLORIDE TABS 20 MEQ TABLET.ER (FP) PO SCH (09:41)
[2017-09-19] MEDS: CHOLECALCIFEROL (VITAMIN D3) 1,000 UNIT TABLET (FP) PO SCH (09:42)
[2017-09-19] MEDS: ENOXAPARIN NA (PORCINE) 40 MG/0.4 ML DISP.SYRIN SQ SCH (09:43)
[2017-09-19] MEDS: guaiFENesin 200 MG/10 ML 10 ML UNIT-DOSE CUPS PO SCH (09:43)
[2017-09-19] MEDS: ALBUTEROL SO4 2.5/IPRATROPIUM 0.5 INH SOL 3 ML VIAL.NEB. NEB SCH ×3 (09:43→16:35)
[2017-09-19] MEDS: SUCRALFATE 1 GM/10 ML UNIT DOSE CUPS PO SCH (09:44)
[2017-09-19] MEDS: BUDESONIDE/FORMETEROL FUMARATE 160/4.5 mcg INHALER IH SCH (09:44)
[2017-09-19] MEDS ORDERED: CYANOCOBALAMIN 1,000 MCG TABLET (FP) PO SCH (10:00)
[2017-09-19] MEDS ORDERED: PT OWN MED DRAWER 7, Y5N ONE (10:52)
--- NOTE | 2017-09-19 11:15 | PN ---
Progress Note, Physician History of Present Illness: Pt seen and examined at bedside. She is awake and alert. She feels that her breathing is improved. She has been compliant with her fluid restriction. - Current Medication List Current Medications: Active Medications Acetaminophen (Tylenol -) 650 mg PO Q6H PRN PRN Reason: FEVER Last Admin: 09/18/17 21:32 Dose: 650 mg Albuterol/Ipratropium (Duoneb -) 1 amp NEB RQID [facility] Last Admin: 09/19/17 09:43 Dose: 1 amp Alprazolam (Xanax -) 0.25 mg PO HS PRN PRN Reason: ANXIETY Last Admin: 09/18/17 21:31 Dose: 0.25 mg Amlodipine Besylate (Norvasc -) 2.5 mg PO DAILY [facility] Last Admin: 09/19/17 09:41 Dose: 2.5 mg Atorvastatin Calcium (Lipitor -) 10 mg PO HS [facility] Last Admin: 09/18/17 21:31 Dose: 10 mg Budesonide/Formoterol Fumarate (Symbicort 160/4.5mcg -) 1 puff IH BID [facility] Last Admin: 09/19/17 09:44 Dose: 1 puff Cholecalciferol (Vitamin D3 -) 5,000 unit PO DAILY [facility] Last Admin: 09/19/17 09:42 Dose: 5,000 unit Cyanocobalamin (Vitamin B12 -) 1,000 mcg PO DAILY [facility] Last Admin: 09/19/17 09:41 Dose: 1,000 mcg Enoxaparin Sodium (Lovenox -) 40 mg SQ DAILY [facility] Last Admin: 09/19/17 09:43 Dose: 40 mg Guaifenesin (Robitussin -) 10 ml PO QID [facility] Last Admin: 09/19/17 09:43 Dose: 10 ml Methylprednisolone Sodium Succinate (Solu-Medrol -) 20 mg IVPUSH Q8H-IV [facility] Last Admin: 09/19/17 02:00 Dose: 20 mg Metoprolol Tartrate (Lopressor -) 50 mg PO DAILY [facility] Last Admin: 09/19/17 09:41 Dose: 50 mg Ondansetron HCl (Zofran Odt -) 4 mg SL Q8H PRN PRN Reason: NAUSEA AND/OR VOMITING Last Admin: 09/13/17 14:22 Dose: 4 mg Pantoprazole Sodium (Protonix -) 20 mg PO DAILY [facility] Last Admin: 09/19/17 09:41 Dose: 20 mg Paroxetine HCl (Paxil -) 40 mg PO DAILY [facility] Last Admin: 09/19/17 09:37 Dose: 40 mg Potassium Chloride (K-Dur -) 20 meq PO DAILY [facility] Last Admin: 09/19/17 09:41 Dose: 20 meq Sucralfate (Carafate Oral Suspension -) 1 gm PO BID [facility] Last Admin: 09/19/17 09:44 Dose: 1 gm - Objective Vital Signs: Vital Signs Temperature 97.6 F 09/19/17 05:00 Pulse Rate 74 09/19/17 05:00 Respiratory Rate 19 09/19/17 05:00 Blood Pressure 159/85 09/19/17 05:00 O2 Sat by Pulse Oximetry (%) 93 L 09/19/17 06:34 Constitutional: Yes: Calm Eyes: Yes: Conjunctiva Clear Cardiovascular: Yes: S1, S2 Respiratory: Yes: Wheezes Gastrointestinal: Yes: Soft Genitourinary: Yes: WNL Musculoskeletal: Yes: WNL Edema: No Neurological: Yes: Oriented Psychiatric: Yes: Oriented Labs: CBC, BMP 09/18/17 07:40 09/18/17 07:40 Problem List - Problems (1) Hyponatremia Code(s): E87.1 - HYPO-OSMOLALITY AND HYPONATREMIA (2) HTN (hypertension) Code(s): I10 - ESSENTIAL (PRIMARY) HYPERTENSION (3) Hypokalemia Code(s): E87.6 - HYPOKALEMIA (4) COPD (chronic obstructive pulmonary disease) Code(s): J44.9 - CHRONIC OBSTRUCTIVE PULMONARY DISEASE, UNSPECIFIED Assessment/Plan Current Medications Generic Name Dose Route Start Last Admin Trade Name Freq PRN Reason Stop Dose Admin Acetaminophen 650 mg 09/17/17 21:49 09/18/17 21:32 Tylenol - PO 650 mg Q6H PRN Administration FEVER Albuterol/Ipratropium 1 amp 09/13/17 08:00 09/19/17 09:43 Duoneb - NEB 1 amp RQID [facility] Administration Alprazolam 0.25 mg 09/13/17 12:19 09/18/17 21:31 Xanax - PO 0.25 mg HS PRN Administration ANXIETY Amlodipine Besylate 2.5 mg 09/13/17 10:00 09/19/17 09:41 Norvasc - PO 2.5 mg DAILY [facility] Administration Atorvastatin Calcium 10 mg 09/13/17 22:00 09/18/17 21:31 Lipitor - PO 10 mg HS [facility] Administration Budesonide/Formoterol Fumarate 1 puff 09/13/17 10:00 09/19/17 09:44 Symbicort 160/4.5mcg - IH 1 puff BID [facility] Administration Cholecalciferol 5,000 unit 09/13/17 10:00 09/19/17 09:42 Vitamin D3 - PO 5,000 unit DAILY [facility] Administration Cyanocobalamin 1,000 mcg 09/19/17 10:00 09/19/17 09:41 Vitamin B12 - PO 1,000 mcg DAILY [facility] Administration Enoxaparin Sodium 40 mg 09/13/17 14:15 09/19/17 09:43 Lovenox - SQ 40 mg DAILY [facility] Administration Guaifenesin 10 ml 09/13/17 10:00 09/19/17 09:43 Robitussin - PO 10 ml QID [facility] Administration Methylprednisolone Sodium Succinate 20 mg 09/16/17 18:00 09/19/17 02:00 Solu-Medrol - IVPUSH 20 mg Q8H-IV [facility] Administration Metoprolol Tartrate 50 mg 09/13/17 10:00 09/19/17 09:41 Lopressor - PO 50 mg DAILY [facility] Administration Ondansetron HCl 4 mg 09/13/17 14:17 09/13/17 14:22 Zofran Odt - SL 4 mg Q8H PRN Administration NAUSEA AND/OR VOMITING Pantoprazole Sodium 20 mg 09/13/17 10:00 09/19/17 09:41 Protonix - PO 20 mg DAILY [facility] Administration Paroxetine HCl 40 mg 09/13/17 10:00 09/19/17 09:37 Paxil - PO 40 mg DAILY [facility] Administration Potassium Chloride 20 meq 09/17/17 15:15 09/19/17 09:41 K-Dur - PO 20 meq DAILY [facility] Administration Sucralfate 1 gm 09/14/17 22:00 09/19/17 09:44 Carafate Oral Suspension - PO 1 gm BID [facility] Administration Impression 1. hyponatremia 2. hypokalemia 3. copd exacerbation 4. anxiety 5. depression 6. GERD 7. bronchiectasis 8. CAD Plan - monitor sodium level - no new labs today - can see me as outpt - taper steroids as tolerated - discussed with medical team Dr Wilson
[2017-09-19 14:32] VITALS: BP 134/67; PULSE 70; TEMP 97.9
== END 2017-09-19 17:23 | disposition home or self-care (01) | DRG 191 ==
LOC: SUPCPDRO 20:29 → FER 20:29 → FM/S 23:14 → OBSVTOIN 09-15 14:48 → FM/S 09-16 21:33
PROVIDERS: ADMIT Internal Medicine; ATTEND Nurse Practitioner Family
DX: J44.1 Chronic obstructive pulmonary disease with (acute) exacerbation (principal); E87.1 Hypo-osmolality and hyponatremia; I10 Essential (primary) hypertension; E78.5 Hyperlipidemia, unspecified; I25.10 Atherosclerotic heart disease of native coronary artery without angina pectoris; F41.8 Other specified anxiety disorders; E86.0 Dehydration; E87.6 Hypokalemia; D35.1 Benign neoplasm of parathyroid gland; E83.52 Hypercalcemia; D72.829 Elevated white blood cell count, unspecified; M19.90 Unspecified osteoarthritis, unspecified site; Z85.118 Personal history of other malignant neoplasm of bronchus and lung; Z87.11 Personal history of peptic ulcer disease; Z87.891 Personal history of nicotine dependence
CPT/HCPCS: 36415; 70450-TC; 70551-TC; 71045-TC-FY; 71046-TC-FY; 80048; 80053; 81003; 81015; 82436; 82550; 82570; 82607; 82746; 83690; 83735; 83930; 83935; 84100; 84133; 84300; 84443; 84484; 85025; 87070; 87086; 87186; 87205; 93005; 94010; 94640; 94761; 97116-GP; 97161-GP; 99284-25; G0378; J7030; Q0162